=== PATIENT | female | born 1960 | race Caucasian/White ===

== ENCOUNTER 2021-04-26 14:45 | Outpatient (REF) | payer OTHER, SELFPAY ==
--- NOTE | ~2021-04-26 | XR_ITS ---
EXAMINATION: XR SHOULDER, RIGHT CLINICAL INFORMATION: Pain. Unable to be optimally positioned. COMPARISON: None TECHNIQUE: Three views of the right shoulder. FINDINGS: Suboptimal positioning. There is no acute fracture. No suspicious focal lesion. There is moderate lateral downsloping of the acromion. There is some hypertrophic change associated with the upper aspect of the AC joint. There is some proliferative change associated with the inferior aspect of the articular surface of the humeral head and the tip of the acromion. No definite abnormal soft tissue calcification. No suspicious abnormality in the visualized portions of the chest XR/XR shoulder RT min 2V IMPRESSION: No acute fracture or subluxation. There are some degenerative changes.
== END 2021-04-26 14:46 | disposition home or self-care (01) ==
LOC: HO.HMGCX 14:45
PROVIDERS: PCP Internal Medicine; Visit Provider Physician Assistant Medical
DX: Z13.89 Encounter for screening for other disorder (principal)
CPT/HCPCS: 73030

== ENCOUNTER 2021-06-17 11:38 | Outpatient (REF) | payer OTHER, SELFPAY ==
--- NOTE | ~2021-06-17 | XR_ITS ---
EXAMINATION: XR SHOULDER, RIGHT CLINICAL INFORMATION: Pain of the right shoulder COMPARISON: 04/26/2021 TECHNIQUE: AP external rotation, Grashey, scapular Y, and axillary views of the right shoulder. FINDINGS: Alignment is normal at the acromioclavicular and glenohumeral joints. The acromioclavicular joint is unremarkable. No hook-shaped acromion or acromiohumeral distance narrowing. There is lateral downsloping of the acromion. No calcium deposition within rotator cuff tendons. The glenohumeral joint space is preserved. No humeral fracture or subluxation. Small osteophytes are present at the inferior aspect of the glenohumeral joint. The humeral head is well positioned over the intact glenoid. The visualized right lung is normal. XR/XR shoulder RT min 2V IMPRESSION: * No evidence of calcific tendinopathy at the right shoulder. * Mild osteoarthritis of the glenohumeral joint. * No acute findings compared to prior exam from 04/26/2021.
[2021-06-17 11:55] LABS: MANUAL DIFF FLAG NO
[2021-06-17 12:09] LABS: Basophils Percent Auto 0.6 % (0-2); Eosinophils Absolute Auto 0.1 X10*3/uL (0.0-0.4); Eosinophils Percent Auto 1.1 % (0-4); Hematocrit 41.2 % (37.0-47.0); Hemoglobin 13.5 g/dl (12.0-16.0); Imm Gran Abs Auto 0.04 X10*3/uL (0.00-0.03); Imm Gran Pct Auto 0.6 % (0.0-0.4); Lymphocytes Absolute Auto 1.9 X10*3/uL (1.2-4.9); Lymphocytes Percent Auto 27.9 % (20-40); Mean Corpuscular HGB Conc 32.8 g/dl (31.0-35.0); Mean Corpuscular Hemoglobin 29.1 pg (27.0-33.0); Mean Corpuscular Volume 88.8 fL (80.0-98.0); Mean Platelet Volume 10.4 fL (9.4-12.3); Monocytes Absolute Auto 0.7 X10*3/uL (0.1-1.2); Monocytes Percent Auto 10.3 % (2-11); Neutrophils Absolute Auto 3.9 x10*3/uL (2.0-8.3); Neutrophils Percent Auto 59.5 % (45-73); Platelet Count 276 X10*3/uL (160-400); Red Blood Count 4.64 X10*6/uL (4.20-5.50); Red Cell Distribution Width 14.3 % (11.0-16.0); White Blood Count 6.6 X10*3/uL (4.8-10.8)
[2021-06-17 12:39] LABS: Alanine Aminotransferase 20 U/L (0-31); Albumin Level 4.2 g/dL (3.5-5.0); Alkaline Phosphatase 68 U/L (39-117); Anion Gap 12 (12-20); Aspartate Amino Transferase 18 U/L (5-31); Bilirubin Total 0.4 mg/dL (0.0-1.0); Blood Urea Nitrogen 19 mg/dL (9-16); Calcium 9.2 mg/dL (8.4-10.2); Carbon Dioxide 22 mmol/L (22-29); Chloride 110 mmol/L (96-108); Cholesterol 251 mg/dL; Estimated Glomerular Filt Rate > 60; Glucose Fasting 103 mg/dL (60-99); HDL Cholesterol 60 mg/dL; LDL Cholesterol Calculated 174 mg/dl; Potassium 4.2 mmol/L (3.3-5.1); Sodium 140 mmol/L (135-145); Total Protein 7.4 g/dL (6.5-8.0); Triglycerides 87 mg/dL
[2021-06-17 12:45] LABS: Thyroid Stimulating Hormone 0.88 uIU/mL (0.32-4.0)
[2021-06-20 14:01] LABS: Vitamin D 25-OH, D2 <4 ng/mL; Vitamin D 25-OH, D3 18 ng/mL; Vitamin D 25-OH, Total 18 ng/mL (30-100)
== END 2021-06-17 11:39 | disposition home or self-care (01) ==
LOC: HO.XRAY 11:38
PROVIDERS: PCP Internal Medicine; Visit Provider Internal Medicine
DX: E55.9 Vitamin D deficiency, unspecified (principal); E66.9 Obesity, unspecified; E78.5 Hyperlipidemia, unspecified; M25.511 Pain in right shoulder; Z68.33 Body mass index [BMI] 33.0-33.9, adult
CPT/HCPCS: 36415; 73030; 80053; 80061; 82306; 84443; 85025

== ENCOUNTER 2021-07-24 14:00 | Outpatient (RCR) | payer OTHER, SELFPAY ==
--- NOTE | 2021-07-15 15:36 | MHC.PT.EP ---
[facility] [place] Office [place] Office [place] Office [address] [phone] F: [phone] F: [phone] F: [phone] F: [phone] Physical Therapy Plan of Care Date of Evaluation: Date of Surgery: n/a Diagnosis: pain in R shoulder Assessment: Patient is a 61 year old female presenting to PT with complaints of pain in her R shoulder. Pt reports onset of pain began a about 3 months ago due to falling on her shoulder. She presents today with impairments in pain, shoulder ROM, shoulder strength, numbness and tingling, and posture. Pt's current occupation is none, with baseline physical activities including ADLs, sleep, reaching. Pt expresses shelter goal of getting back to normal, and is motivated to work towards this in PT. Clinical presentation today is somewhat unclear at this time secondary to pt with poor tolerance to the examination. She demonstrates pain consistent with shoulder pain however cervical component cannot be ruled out at this time and pt will benefit from skilled PT to address the following problems and impairments noted upon evaluation: pain, shoulder ROM, shoulder strength, numbness and tingling, and posture. These problems limit the patient with the following functional activities: ADLs, sleep, reaching. The prescribed treatment plan of care is medically necessary. Co-morbidities of depression were identified and taken into considerations of plan of care. Pt was educated on HEP, role of PT, prognosis, POC. Frequency and Duration: The patient will be seen 2 x week x 4 weeks Short Term Goals: Pt will demonstrate pain <5/10 at rest in 2 weeks for improved QOL. Pt will demonstrate improved shoulder ROM by 20 degrees in 2 weeks. Pt will demonstrate shoulder MMT of at least 3/5 in 2 weeks. Assisted Goals: Pt will demonstrate ability to complete ADLs with min to no pain in 4 weeks for improved independence at home. Pt will demonstrate ability to sleep through the night with min to no pain in 4 weeks for improved QOL. Treatment Plan: Modalities to reduce pain, spasms and effusion. Manual therapy to restore motion and function. Therapeutic exercise to improve strength and flexibility. Neuromuscular re-education for posture and balance. Therapeutic activities to return to functional activities of daily living. Electronically signed by: Juliane Rodriges, PT, DPT, ATC Please sign and return to therapist. Thank you for your referral.
--- NOTE | 2021-07-30 15:18 | MHC.PT.DC ---
[facility] [place] Office [place] Office [place] Office [address] [phone] F: [phone] F: [phone] F: [phone] F: [phone] Physical Therapy Discharge Report Diagnosis: pain in R shoulder Date of Surgery: n/a Date of Evaluation: 07/15/21 Date of Discharge: 07/30/21 Treatments to Date: 2 Cancellations to Date: 1 No Shows to Date: 3 Discharge Status: Visit Non-compliance Discharge Summary: Pt has failed to comply with [facility] attendance policy and no showed her final 2 appointments. Pt status currently unknown at this time. Electronically signed by: Juliane Rodriges, PT, DPT, ATC Please sign and return to therapist. Thank you for your referral.
== END 2021-07-30 15:19 | disposition home or self-care (01) ==
LOC: HO.PT 14:00
PROVIDERS: PCP Internal Medicine; Visit Provider Internal Medicine
DX: M25.511 Pain in right shoulder (principal)
CPT/HCPCS: 97110; 97161

== ENCOUNTER 2021-09-15 14:14 | Outpatient (REF) | payer OTHER, SELFPAY ==
--- NOTE | 2021-09-15 15:45 | MHC.AU.ANR ---
Adult Audiological Evaluation Date of Visit: 09/15/21 Hardscape Foreman Used: Tunisian- By Phone Reason for Appointment: Audiological evaluation due to concern for decreased hearing. Patient reports a longstanding history of hearing loss and middle-ear dysfunction. She notes that she has had two operations on her left ear and three on her right ear. She is not sure what the nature of these operations were, but notes that once she did have a PE tube in the right ear. She reports that these operations occurred in the late 1980s and early . Patient states that she was scheduled to have another operation on her right ear, but it was put on hold due to the COVID-19 pandemic. She notes that the hearing in her right ear seems to be getting worse, but feels she hears well from the left ear. Patient reports that she has never used hearing aids because she doesn't like them. Does patient feel they have a hearing loss?: Yes If Yes, Which Ear?: Right Ear When Was Hearing Difficulty First Noticed?: 30+ years ago Has hearing been tested previously?: Yes Previous Hearing Test Results: Reports having audiological evaluations in the past, but results are not available for review today. Ear History: Recent Ear Pain: Both Ears Family History of Hearing Loss?: No: Mother and father Previous Ear Surgery: Both Ears Medical History: Medical History: Migraines Medical History (Other): Asthmas, kidney problem Allergies: Flu vaccines, penicillin Medication List: acetaminophen ER, albuterol sulfate, cholecalciferol (vitamin D3), clonazepam, fluoxetine, fluticasone propionate, meloxicam, prazosin, rosuvastatin, sumatriptan succinate, tiotropium bromide, topiramate, trazodone Otoscopy: Right Ear: Unremarkable Left Ear: Unremarkable Tympanometry: Tympanometry performed due to: Conductive component found in audiometric results Right Ear: Normal Middle Ear System (Type A) Left Ear: Patient Did Not Tolerate Tympanometry Hearing Evaluation: Transducer(s) Used: Insert Earphones Bone Conduction Method: Conventional Audiometry Stimuli Used: Pure Tones Right Ear: Description of Hearing: Profound hearing loss at 250 Hz rising to a severe to moderately-severe mixed hearing loss 500-6000 Hz and sloping to a profound hearing loss at 8000 Hz. . Left Ear: Description of Hearing: Moderate sensorineural hearing loss 250-1000 Hz, rising to a mild sensorineural hearing loss at 2000 Hz, and sloping to a moderate to severe sensorineural hearing loss from 5069-4434 Hz. Speech Recognition Threshold (SRT): Method Used: Recorded Lists Stimuli Used: Tunisian Trisyllable Words Right Ear: 95 dBHL Left Ear: 55 dBHL Word Discrimination: Method: Recorded Lists Word Lists Used: Lista Bisil?bica (Tunisian) Right Ear: 84% at 100 dBHL Left Ear: 96% at 90 dBHL Recommendations: Audiological re-evaluation in one year. Trial with amplification is recommended. Referral to Ear, Nose, and Throat is recommended. Discussed results with patient. Advised that an operation would not repair the sensorineural portion of her hearing loss, and therefore hearing aids are highly recommended. She was very resistant to talk of hearing aids and did not want to continue the conversation further. Patient stated she wanted to go back to ENT to pursue that operation that was planned pre-pandemic. Diagnosis: Primary Diagnosis: H90.A31 Mixed HL, Unilateral Right Ear, W/Restricted Contralateral Hearing Secondary Diagnosis: H90.A22 SNHL, Unilateral, Left Ear, W/Restricted Contralateral Hearing Services Performed: Services Performed: Comprehensive Audiological Evaluation (CPT 18066) Tympanometry (CPT 65536) Signature: Provider: Naila Lassiter, CCC-A
== END 2021-09-15 14:15 | disposition home or self-care (01) ==
LOC: HO.SH 14:14
PROVIDERS: Visit Provider Nurse Practitioner Acute Care
DX: Z01.118 Encounter for examination of ears and hearing with other abnormal findings (principal); H90.3 Sensorineural hearing loss, bilateral
CPT/HCPCS: 92557; 92567

== ENCOUNTER 2021-10-03 13:34 | Outpatient (REF) | payer OTHER, SELFPAY ==
--- NOTE | ~2021-10-03 | CT_ITS ---
EXAMINATION: CT SHOULDER WITHOUT CONTRAST, RIGHT CLINICAL INFORMATION: Right shoulder pain. COMPARISON: 06/17/2021 TECHNIQUE: Multidetector volumetric imaging was obtained through the right shoulder without contrast. Multiplanar reformatted images in coronal and sagittal orientations were submitted. This CT examination was performed using dose optimization techniques as appropriate, variously including the following: *Automated exposure control *Adjustment of mA and/or kV according to patient size (this includes techniques or standardized protocols for targeted exams where dose is matched to indication/reason for exam; i.e. extremities or head) *Use of iterative reconstruction technique DLP: 329 mGy-cm FINDINGS: No acute fracture or malalignment. Bone mineralization appears normal. Humeral head appears appropriately situated at the glenoid. There is uppc-[id number] glenohumeral osteoarthritis with nonuniform joint space narrowing, marginal osteophytes, and articular sclerosis. Clxq-cg-ahynahjx osteoarthritis is also present at the acromioclavicular joint. The undersurface of the acromion is flat with lateral downsloping and anterolateral subacromial spurring. Normal subacromial interval. Coracohumeral distance measures 7 mm. No appreciable glenohumeral effusion. Possible trace subacromial-subdeltoid bursitis, though sensitivity and specificity are limited. No clear rotator cuff tear, though sensitivity is limited without intra-articular contrast. There is mild subscapularis muscle atrophy and fatty replacement which does raise the possibility of a rotator cuff tear. Right-sided chest wall is unremarkable. Imaged portion of the right lung is clear. Mediastinum is unremarkable. CT/CT shoulder RT wo con IMPRESSION: 1. Zbyk-pt-hokydrmb glenohumeral and acromioclavicular osteoarthritis of the right shoulder. 2. Relative atrophy and fatty replacement of the right subscapularis muscle, raising the possibility of a associated tendon tear. Sensitivity of CT for rotator cuff tears is limited without intra-articular contrast. Consider shoulder MRI if clinically warranted. 3. Lateral downsloping of the acromion with associated subacromial spurring. Possible subacromial-subdeltoid bursitis.
== END 2021-10-03 13:35 | disposition home or self-care (01) ==
LOC: HO.CT 13:34
PROVIDERS: Visit Provider Nurse Practitioner Acute Care
DX: M25.511 Pain in right shoulder (principal)
CPT/HCPCS: 73200

== ENCOUNTER 2021-11-05 10:08 | Outpatient (REF) | payer OTHER, SELFPAY ==
[2021-11-05 10:27] LABS: MANUAL DIFF FLAG NO
[2021-11-05 11:15] LABS: Basophils Percent Auto 0.3 % (0-2); Eosinophils Absolute Auto 0.1 X10*3/uL (0.0-0.4); Eosinophils Percent Auto 1.5 % (0-4); Hematocrit 39.5 % (37.0-47.0); Hemoglobin 12.9 g/dl (12.0-16.0); Imm Gran Abs Auto 0.04 X10*3/uL (0.00-0.03); Imm Gran Pct Auto 0.6 % (0.0-0.4); Lymphocytes Percent Auto 29.8 % (20-40); Mean Corpuscular HGB Conc 32.7 g/dl (31.0-35.0); Mean Corpuscular Hemoglobin 29.1 pg (27.0-33.0); Mean Corpuscular Volume 89.2 fL (80.0-98.0); Mean Platelet Volume 9.8 fL (9.4-12.3); Monocytes Absolute Auto 0.8 X10*3/uL (0.1-1.2); Monocytes Percent Auto 11.4 % (2-11); Neutrophils Absolute Auto 3.7 x10*3/uL (2.0-8.3); Neutrophils Percent Auto 56.4 % (45-73); Platelet Count 309 X10*3/uL (160-400); Red Blood Count 4.43 X10*6/uL (4.20-5.50); Red Cell Distribution Width 13.6 % (11.0-16.0); White Blood Count 6.6 X10*3/uL (4.8-10.8)
[2021-11-05 12:47] LABS: Alanine Aminotransferase 25 U/L (0-31); Albumin Level 4.2 g/dL (3.5-5.0); Alkaline Phosphatase 65 U/L (39-117); Anion Gap 12 (12-20); Aspartate Amino Transferase 19 U/L (5-31); Bilirubin Total 0.6 mg/dL (0.0-1.0); Blood Urea Nitrogen 16 mg/dL (9-16); Calcium 9.5 mg/dL (8.4-10.2); Carbon Dioxide 26 mmol/L (22-29); Chloride 105 mmol/L (96-108); Cholesterol 178 mg/dL; Estimated Glomerular Filt Rate > 60; Glucose Fasting 100 mg/dL (60-99); HDL Cholesterol 53 mg/dL; LDL Cholesterol Calculated 109 mg/dl; Potassium 4.4 mmol/L (3.3-5.1); Sodium 139 mmol/L (135-145); Total Protein 7.3 g/dL (6.5-8.0); Triglycerides 84 mg/dL
== END 2021-11-05 10:09 | disposition home or self-care (01) ==
LOC: HO.LAB 10:08
PROVIDERS: PCP Internal Medicine; Visit Provider Nurse Practitioner Acute Care
DX: E78.5 Hyperlipidemia, unspecified (principal)
CPT/HCPCS: 36415; 80053; 80061; 85025

== ENCOUNTER → 2021-11-10 09:52 | Outpatient (BNVA) | payer OTHER, SELFPAY | PROVIDERS: PCP Internal Medicine; Visit Provider Orthopaedic Surgery | DX: M24.811 Other specific joint derangements of right shoulder, not elsewhere classified (principal) | CPT/HCPCS: 20610; 99202; J1100 ==

== ENCOUNTER → 2021-12-19 14:59 | Outpatient (BNVA) | payer OTHER, SELFPAY | PROVIDERS: PCP Nurse Practitioner Acute Care; Referring Provider Internal Medicine; Visit Provider Nurse Practitioner Family | DX: K21.9 Gastro-esophageal reflux disease without esophagitis (principal) ==

== ENCOUNTER 2021-12-19 15:35 | Outpatient (REF) | payer OTHER, SELFPAY ==
[2021-12-23 10:42] LABS: H Pylori Breath Test Positive (Negative)
== END 2021-12-19 15:36 | disposition home or self-care (01) ==
LOC: HO.LNP 15:35
PROVIDERS: Visit Provider Nurse Practitioner Family
DX: K21.9 Gastro-esophageal reflux disease without esophagitis (principal); R14.0 Abdominal distension (gaseous)
CPT/HCPCS: 83013

== ENCOUNTER 2022-02-02 13:00 | Outpatient (RCR) | payer OTHER, SELFPAY | END 2022-03-12 11:41 | disposition home or self-care (01) | LOC: HO.PT 13:00 | PROVIDERS: PCP Internal Medicine; Visit Provider Nurse Practitioner Acute Care | DX: M19.019 Primary osteoarthritis, unspecified shoulder (principal) | CPT/HCPCS: 97014; 97110; 97140; 97162 ==

== ENCOUNTER 2022-02-06 08:38 | Outpatient (REF) | payer OTHER, SELFPAY ==
--- NOTE | ~2022-02-06 | MM_ITS ---
EXAMINATION: BONE DENSITOMETRY CLINICAL INDICATION: Asymptomatic menopausal state. COMPARISON: This is the patient's baseline examination. TECHNIQUE: Using a TrustGo DXA System (software version: 13.1) manufactured by [employer], dual-energy x-ray absorptiometry was performed of the lumbar spine and left hip. The images are of good technical quality. Summary results are attached. FINDINGS: AP SPINE L1-L3 (excluding L4): The data of L1-L4 has been changed to exclude the L4 vertebral body, because degenerative changes at this level may cause overestimation of lumbar spine density. BMD 1.238 g/cm2, Z-score 0.7, T-score 0.6, normal. LEFT FEMUR, NECK: BMD 0.898 g/cm2, Z-score -0.4, T-score -1.0, normal. LEFT FEMUR, TOTAL: BMD 0.974 g/cm2, Z-score -0.1, T-score -0.3, normal. IDENTIFIED RISK FACTORS: Menopause, family history (parental hip fracture), history of fracture (adult), height loss, recurrent falls. HISTORY OF FRACTURE: Shoulder, wrist. MEDICATIONS: None listed. MM/XR DEXA axial skeleton IMPRESSION: 1. DIAGNOSIS: Normal bone density based on the lowest T-score value of -1.0 in the femoral neck applying World Health Organization criteria. 2. 10-YEAR FRACTURE RISK PREDICTION, FRAX: According to the guidelines, FRAX calculation should only be performed on patients in the osteopenia bone density category. Therefore, FRAX was not performed on this patient. 3. Treatment Recommendations: NOF guidelines recommend consideration for treatment in postmenopausal women and men age 50 and older presenting with the following: -A hip or vertebral (clinical or morphometric) fracture. -T-score less than or equal to -2.5 at the femoral neck or spine after appropriate evaluation to exclude secondary causes. -Low bone mass at the hip or spine and a 10-year fracture probability by FRAX of greater than or equal to 3% for hip fracture or greater than or equal to 20% for major osteoporotic fracture based on the [place] adapted WHO algorithm. 4. Other Recommendations: All treatment decisions require clinical judgment and consideration of individual patient factors, including patient preferences, comorbidities, previous drug use, risk factors not captured in the FRAX model (e.g. frailty, falls, vitamin D deficiency, increased bone turnover, interval significant decline in bone density) and possible under or overestimation of fracture risk by FRAX. FUTURE SCAN RECOMMENDATION: People with diagnosed cases of osteoporosis or at high risk for fracture should have regular bone mineral density tests. For patients eligible for Medicare, routine testing is allowed once every 2 years. The testing frequency can be increased to one year for patients who have rapidly progressing disease, those who are receiving or discontinuing medical therapy to restore bone mass, or have additional risk factors.
== END 2022-02-06 08:39 | disposition home or self-care (01) ==
LOC: HO.MAMMO 08:38
PROVIDERS: Visit Provider Internal Medicine
DX: Z13.820 Encounter for screening for osteoporosis (principal); Z78.0 Asymptomatic menopausal state
CPT/HCPCS: 77080

== ENCOUNTER 2022-02-12 15:25 | Outpatient (REF) | payer OTHER, SELFPAY ==
[2022-02-12 15:41] LABS: MANUAL DIFF FLAG NO
[2022-02-12 16:11] LABS: Basophils Percent Auto 0.5 % (0-2); Eosinophils Absolute Auto 0.1 X10*3/uL (0.0-0.4); Eosinophils Percent Auto 1.4 % (0-4); Hemoglobin 12.5 g/dl (12.0-16.0); Imm Gran Abs Auto 0.03 X10*3/uL (0.00-0.03); Imm Gran Pct Auto 0.5 % (0.0-0.4); Lymphocytes Absolute Auto 2.2 X10*3/uL (1.2-4.9); Mean Corpuscular HGB Conc 33.8 g/dl (31.0-35.0); Mean Corpuscular Hemoglobin 29.9 pg (27.0-33.0); Mean Corpuscular Volume 88.5 fL (80.0-98.0); Mean Platelet Volume 9.7 fL (9.4-12.3); Monocytes Absolute Auto 0.7 X10*3/uL (0.1-1.2); Monocytes Percent Auto 11.3 % (2-11); Neutrophils Absolute Auto 3.5 x10*3/uL (2.0-8.3); Neutrophils Percent Auto 53.3 % (45-73); Platelet Count 290 X10*3/uL (160-400); Red Blood Count 4.18 X10*6/uL (4.20-5.50); Red Cell Distribution Width 13.9 % (11.0-16.0); White Blood Count 6.5 X10*3/uL (4.8-10.8)
[2022-02-12 16:31] LABS: Alanine Aminotransferase 14 U/L (0-31); Albumin Level 4.2 g/dL (3.5-5.0); Alkaline Phosphatase 57 U/L (39-117); Anion Gap 10 (12-20); Aspartate Amino Transferase 15 U/L (5-31); Bilirubin Total 0.4 mg/dL (0.0-1.0); Blood Urea Nitrogen 16 mg/dL (9-16); Calcium 8.7 mg/dL (8.4-10.2); Carbon Dioxide 24 mmol/L (22-29); Chloride 110 mmol/L (96-108); Cholesterol 247 mg/dL; Estimated Glomerular Filt Rate > 60; Glucose Fasting 102 mg/dL (60-99); HDL Cholesterol 48 mg/dL; LDL Cholesterol Calculated 169 mg/dl; Potassium 4.1 mmol/L (3.3-5.1); Sodium 140 mmol/L (135-145); Triglycerides 150 mg/dL
== END 2022-02-12 15:26 | disposition home or self-care (01) ==
LOC: HO.LAB 15:25
PROVIDERS: PCP Internal Medicine; Visit Provider Nurse Practitioner Family
DX: Z00.00 Encounter for general adult medical examination without abnormal findings (principal); M24.811 Other specific joint derangements of right shoulder, not elsewhere classified; N63.20 Unspecified lump in the left breast, unspecified quadrant; E78.5 Hyperlipidemia, unspecified; E55.9 Vitamin D deficiency, unspecified
CPT/HCPCS: 36415; 80053; 80061; 82306; 85025; 99212

== ENCOUNTER 2022-02-16 10:40 | Outpatient (REF) | payer OTHER, SELFPAY ==
[2022-02-16 12:21] LABS: Lipase 11 U/L (8-78)
[2022-02-16 12:59] LABS: Folate 10.3 ng/mL (> or = 4.0); Vitamin B12 268 pg/mL (200-900)
[2022-02-19 21:22] LABS: Transglutaminase Ab IgG <1.0 U/mL; Transglutaminase IgA <1.0 U/mL
[2022-02-22 16:06] LABS: Vitamin D 25-OH, D2 <4 ng/mL; Vitamin D 25-OH, D3 24 ng/mL; Vitamin D 25-OH, Total 24 ng/mL (30-100)
== END 2022-02-16 10:41 | disposition home or self-care (01) ==
LOC: HO.LAB 10:40
PROVIDERS: PCP Internal Medicine; Visit Provider Nurse Practitioner Family
DX: R10.9 Unspecified abdominal pain (principal); E55.9 Vitamin D deficiency, unspecified
CPT/HCPCS: 36415; 82306; 82607; 82746; 83690; 86364

== ENCOUNTER → 2022-02-17 15:41 | Outpatient (BNVA) | payer OTHER, SELFPAY | PROVIDERS: PCP Internal Medicine; Visit Provider Nurse Practitioner Family | DX: K58.2 Mixed irritable bowel syndrome (principal); K21.9 Gastro-esophageal reflux disease without esophagitis; Z79.899 Other long term (current) drug therapy | CPT/HCPCS: 99212 ==

== ENCOUNTER 2022-03-04 09:55 | Outpatient (REF) | payer OTHER, SELFPAY ==
[2022-03-05 14:10] LABS: H Pylori Breath Test Positive (Negative)
== END 2022-03-04 09:56 | disposition home or self-care (01) ==
LOC: HO.LNP 09:55
PROVIDERS: PCP Internal Medicine; Visit Provider Nurse Practitioner Family
DX: Z11.2 Encounter for screening for other bacterial diseases (principal)
CPT/HCPCS: 83013; 99211

== ENCOUNTER 2022-03-13 12:52 | Outpatient (REF) | payer OTHER, SELFPAY ==
--- NOTE | ~2022-03-13 | MM_ITS ---
EXAMINATION: MM DIAGNOSTIC DIGITAL BREAST TOMOSYNTHESIS, BILATERAL US TARGETED BREAST, LEFT CLINICAL INFORMATION: Left breast lump. Screening right study. The lifetime risk of breast cancer based on the Tyrer-Cuzick Model is 14.5%. COMPARISON: Mammography: 02/08/2020 and studies dating back to 12/04/2015. TECHNIQUE: Digital breast tomosynthesis is performed in both the craniocaudal and mediolateral oblique views along with computer-aided detection (CAD). Synthesized 2D images are generated from the tomosynthesis. Targeted left breast ultrasound. FINDINGS: There are scattered areas of fibroglandular density (ACR BI-RADS breast composition Category b). There are no significant masses, abnormal calcifications, or other abnormalities. Targeted left breast ultrasound did not demonstrate any abnormal cystic or solid mass. No region of abnormal distal sound shadowing appreciated. No edematous change within adjacent tissue is seen. Results are discussed with the patient at time of visit. MM/MM tomosynthesis diagnostic BI IMPRESSION: No specific mammographic or ultrasound evidence to suggest malignancy. ASSESSMENT: BI-RADS 1: Negative. RECOMMENDATION: Routine annual mammography screening due in 12 months. Clinical followup. This patient's information was entered into a reminder system with a target due date for their next mammogram.
--- NOTE | ~2022-03-13 | US_ITS ---
EXAMINATION: MM DIAGNOSTIC DIGITAL BREAST TOMOSYNTHESIS, BILATERAL US TARGETED BREAST, LEFT CLINICAL INFORMATION: Left breast lump. Screening right study. The lifetime risk of breast cancer based on the Tyrer-Cuzick Model is 14.5%. COMPARISON: Mammography: 02/08/2020 and studies dating back to 12/04/2015. TECHNIQUE: Digital breast tomosynthesis is performed in both the craniocaudal and mediolateral oblique views along with computer-aided detection (CAD). Synthesized 2D images are generated from the tomosynthesis. Targeted left breast ultrasound. FINDINGS: There are scattered areas of fibroglandular density (ACR BI-RADS breast composition Category b). There are no significant masses, abnormal calcifications, or other abnormalities. Targeted left breast ultrasound did not demonstrate any abnormal cystic or solid mass. No region of abnormal distal sound shadowing appreciated. No edematous change within the adjacent soft tissue is seen. Results are discussed with the patient at time of visit. US/US breast LT limited IMPRESSION: No specific mammographic or ultrasound evidence to suggest malignancy. ASSESSMENT: BI-RADS 1: Negative. RECOMMENDATION: Routine annual mammography screening due in 12 months. Clinical followup. This patient's information was entered into a reminder system with a target due date for their next mammogram.
== END 2022-03-13 12:53 | disposition home or self-care (01) ==
LOC: HO.MAMMO 12:52
PROVIDERS: PCP Internal Medicine; Visit Provider Internal Medicine
DX: N63.21 Unspecified lump in the left breast, upper outer quadrant (principal)
CPT/HCPCS: 76642; 77062; 77066

== ENCOUNTER → 2022-04-06 13:26 | Outpatient (BNVA) | payer OTHER, SELFPAY | PROVIDERS: PCP Internal Medicine; Visit Provider Orthopaedic Surgery | DX: M24.811 Other specific joint derangements of right shoulder, not elsewhere classified (principal); M25.512 Pain in left shoulder | CPT/HCPCS: 20610; 99212; J1100 ==

== ENCOUNTER → 2022-04-21 13:31 | Outpatient (BNVA) | payer OTHER, SELFPAY | PROVIDERS: PCP Internal Medicine; Referring Provider Internal Medicine; Visit Provider Nurse Practitioner Family | DX: K21.9 Gastro-esophageal reflux disease without esophagitis (principal); A04.8 Other specified bacterial intestinal infections; R14.0 Abdominal distension (gaseous) | CPT/HCPCS: 99212 ==

== ENCOUNTER → 2022-05-20 14:48 | Outpatient (BNVA) | payer OTHER, SELFPAY | PROVIDERS: PCP Internal Medicine; Referring Provider Internal Medicine; Visit Provider Nurse Practitioner Family | DX: A04.8 Other specified bacterial intestinal infections (principal); R10.13 Epigastric pain; R14.0 Abdominal distension (gaseous); K59.01 Slow transit constipation | CPT/HCPCS: 99212 ==

== ENCOUNTER → 2022-06-23 09:49 | Outpatient (BNVA) | payer OTHER, SELFPAY | PROVIDERS: PCP Internal Medicine; Visit Provider Nurse Practitioner Family | DX: R10.13 Epigastric pain (principal); R10.10 Upper abdominal pain, unspecified; K59.04 Chronic idiopathic constipation; R14.0 Abdominal distension (gaseous); R11.0 Nausea | CPT/HCPCS: 99212 ==

== ENCOUNTER 2022-07-06 10:03 | Outpatient (REF) | payer OTHER, SELFPAY | END 2022-07-06 10:04 | disposition home or self-care (01) | LOC: HO.LNP 10:03 | PROVIDERS: Visit Provider Nurse Practitioner Family | DX: M24.811 Other specific joint derangements of right shoulder, not elsewhere classified (principal); M25.512 Pain in left shoulder | CPT/HCPCS: 20610; 99212; J1100 ==

== ENCOUNTER 2022-07-10 09:29 | Outpatient (REF) | payer OTHER, SELFPAY ==
--- NOTE | ~2022-07-10 | CT_ITS ---
EXAMINATION: CT ABDOMEN AND PELVIS WITHOUT CONTRAST CLINICAL INFORMATION: Epigastric pain. COMPARISON: None. TECHNIQUE: Multidetector volumetric imaging was performed from the superior aspect of the liver through the pubic symphysis. Sagittal and coronal reformatted images were obtained on the technologist's workstation. This CT examination was performed using dose optimization techniques as appropriate, variously including the following: *Automated exposure control *Adjustment of mA and/or kV according to patient size (this includes techniques or standardized protocols for targeted exams where dose is matched to indication/reason for exam; i.e. extremities or head) *Use of iterative reconstruction technique DLP: 796 mGy-cm. FINDINGS: LUNG BASES: The lung bases are clear. The heart size is normal. LIVER, GALLBLADDER, AND BILIARY TREE: The liver is normal in size, shape, and attenuation. No focal hepatic lesion or biliary ductal dilatation is present. The gallbladder is unremarkable with no evidence of radiopaque gallstones, gallbladder wall thickening, or obvious pericholecystic inflammatory changes. PANCREAS: The head of the pancreas appears fatty infiltrated. The body and the tail of pancreas is normal in density and size. SPLEEN: Unremarkable. ADRENAL GLANDS: Unremarkable. KIDNEYS AND URETERS: The kidneys are normal in size, shape, and attenuation. No hydronephrosis, hydroureter, or calculi seen. No perinephric stranding. There is a hypodense lesion in the posterior cortex midpole left kidney, probable cyst measuring 5 Hounsfield units. BLADDER: Unremarkable. GASTROINTESTINAL TRACT: The stomach is unremarkable. The opacified small bowel loops are normal caliber. The stomach is opacified with oral contrast and scattered stool without distention. Appendix is small caliber and not optimally visualized the cecum lies in midline abdomen. ABDOMINAL WALL: There is a small lumbar canal hernia containing fat.. LYMPH NODES: No abnormal-sized retroperitoneal, pelvic or inguinal lymph nodes seen. VASCULAR: Unremarkable. PELVIC VISCERA: The uterus is anteverted and appears unremarkable. No free fluid or adnexal mass seen. No abnormal pelvic lymph nodes. OSSEOUS STRUCTURES: No aggressive lytic or sclerotic process seen. There is mild spondylosis. CT/CT abdomen pelvis wo IV con IMPRESSION: 1. No acute intra-abdominal process seen. 2. Mild constipation. 3. Focal fatty infiltration head of the pancreas. 4. Probable cyst midpole left kidney Fleischner guidelines were followed.
[2022-07-10] MEDS: Barium Sulfate Oral (Vanilla) 450 ML ORAL.SUSP 900 ML PO (11:39)
== END 2022-07-10 09:30 | disposition home or self-care (01) ==
LOC: HO.CT 09:29
PROVIDERS: PCP Internal Medicine; Visit Provider Nurse Practitioner Family
DX: R10.13 Epigastric pain (principal); R10.9 Unspecified abdominal pain; R14.0 Abdominal distension (gaseous)
CPT/HCPCS: 74176

== ENCOUNTER → 2022-08-04 10:17 | Outpatient (BNVA) | payer OTHER, SELFPAY | PROVIDERS: PCP Internal Medicine; Visit Provider Nurse Practitioner Family | DX: R10.9 Unspecified abdominal pain (principal); R14.0 Abdominal distension (gaseous); R11.2 Nausea with vomiting, unspecified; K21.9 Gastro-esophageal reflux disease without esophagitis; K58.2 Mixed irritable bowel syndrome; E11.9 Type 2 diabetes mellitus without complications; Z12.11 Encounter for screening for malignant neoplasm of colon | CPT/HCPCS: 99212 ==

== ENCOUNTER 2022-08-27 09:34 | Outpatient (REF) | payer OTHER, SELFPAY ==
[2022-08-27 10:43] LABS: Estimated Average Glucose 120 mg/dL; Hemoglobin A1c % 5.8 %
[2022-08-27 11:25] LABS: Alanine Aminotransferase 19 U/L (0-31); Alkaline Phosphatase 60 U/L (39-117); Aspartate Amino Transferase 17 U/L (5-31); Bilirubin Direct < 0.2 mg/dL (0.0-0.5); Bilirubin Total 0.4 mg/dL (0.0-1.0); Lipase 11 U/L (8-78); Total Protein 6.8 g/dL (6.5-8.0)
[2022-09-05 17:28] LABS: Pancreatic Elastase-1 31 mcg/g
== END 2022-08-27 09:35 | disposition home or self-care (01) ==
LOC: HO.LAB 09:34
PROVIDERS: PCP Internal Medicine; Visit Provider Nurse Practitioner Family
DX: E11.9 Type 2 diabetes mellitus without complications (principal); R10.9 Unspecified abdominal pain; K21.9 Gastro-esophageal reflux disease without esophagitis
CPT/HCPCS: 36415; 80076; 82656; 83036; 83690; 87338

== ENCOUNTER → 2022-09-04 10:10 | Outpatient (BNVA) | payer OTHER, SELFPAY | PROVIDERS: PCP Internal Medicine; Visit Provider Nurse Practitioner Family | DX: K21.9 Gastro-esophageal reflux disease without esophagitis (principal); A04.8 Other specified bacterial intestinal infections; K58.1 Irritable bowel syndrome with constipation; R14.0 Abdominal distension (gaseous) | CPT/HCPCS: 99212 ==

== ENCOUNTER → 2022-10-09 11:26 | Outpatient (BNVA) | payer OTHER, SELFPAY | PROVIDERS: PCP Internal Medicine; Visit Provider Orthopaedic Surgery | DX: M25.511 Pain in right shoulder (principal); M25.512 Pain in left shoulder; M24.811 Other specific joint derangements of right shoulder, not elsewhere classified | CPT/HCPCS: 20610; 99212; J1100 ==

== ENCOUNTER → 2022-11-04 08:13 | Outpatient (REF) | payer OTHER, SELFPAY ==
--- NOTE | ~2022-11-04 | NM_ITS ---
EXAMINATION: RADIONUCLIDE SOLID FOOD GASTRIC EMPTYING 4-HOUR STUDY CLINICAL INFORMATION: Gastroesophageal reflux disease without esophagitis. COMPARISON: No previous gastric emptying study is available for comparison. TECHNIQUE: A standard meal consisting of 4 oz of Egg Beaters brand tagged with 1.0 mCi Tc-99m Sulfur Colloid, 8 oz water and 2 slices of toast with jelly was administered orally to the patient. Images were obtained using a dual head gamma camera in the anterior and posterior projections over of the stomach immediately post ingestion and at hourly intervals up to 3 hours post ingestion. Images were not obtained at 4 hours due to the minimal retention at 3 hours. The anterior and posterior counts at each time interval were averaged using the geometric mean and expressed as percentage of the immediate post ingestion counts. FINDINGS: There is good visualization of activity in the stomach immediately post ingestion. As the study progresses, there is good clearance of activity from the stomach and visualization of progressively increasing small bowel activity. By the end of the study, there is almost no retention noted in the stomach. Retention in the stomach at each time interval was: 1 hour 59% (normal 37%-90%) 2 hours 13% (normal 30%-60%) 3 hours 1% 4 hours (Not Obtained) (normal 0%-10%) NM/NM gastric emptying study IMPRESSION: Normal solid food gastric emptying study.
[2022-11-04 08:51] LABS: Alanine Aminotransferase 18 U/L (0-31); Alkaline Phosphatase 62 U/L (39-117); Anion Gap 14 (12-20); Aspartate Amino Transferase 15 U/L (5-31); Bilirubin Total 0.6 mg/dL (0.0-1.0); Blood Urea Nitrogen 18 mg/dL (9-16); Calcium 9.1 mg/dL (8.4-10.2); Carbon Dioxide 27 mmol/L (22-29); Chloride 107 mmol/L (96-108); Cholesterol 259 mg/dL; Estimated Glomerular Filt Rate > 60; Glucose Fasting 104 mg/dL (60-99); HDL Cholesterol 55 mg/dL; LDL Cholesterol Calculated 185 mg/dl; Potassium 4.6 mmol/L (3.3-5.1); Sodium 143 mmol/L (135-145); Total Protein 6.7 g/dL (6.5-8.0); Triglycerides 95 mg/dL
== END ==
LOC: HO.NUCMED 08:13
PROVIDERS: PCP Internal Medicine; Visit Provider Nurse Practitioner Family
DX: K21.9 Gastro-esophageal reflux disease without esophagitis (principal); E78.5 Hyperlipidemia, unspecified
CPT/HCPCS: 36415; 78264; 80053; 80061; A9541

== ENCOUNTER → 2022-11-13 14:13 | Outpatient (BNVA) | payer OTHER, SELFPAY | PROVIDERS: PCP Internal Medicine; Visit Provider Nurse Practitioner Family | DX: K21.9 Gastro-esophageal reflux disease without esophagitis (principal); K58.9 Irritable bowel syndrome, unspecified; R14.0 Abdominal distension (gaseous) | CPT/HCPCS: 99212 ==

== ENCOUNTER → 2022-12-21 16:22 | Outpatient (BNVA) | payer OTHER, SELFPAY | PROVIDERS: PCP Internal Medicine; Visit Provider Nurse Practitioner Family | DX: Z12.11 Encounter for screening for malignant neoplasm of colon (principal); K21.9 Gastro-esophageal reflux disease without esophagitis; K58.9 Irritable bowel syndrome, unspecified; R14.0 Abdominal distension (gaseous); A04.8 Other specified bacterial intestinal infections | CPT/HCPCS: 99212 ==

== ENCOUNTER → 2022-12-25 14:21 | Outpatient (BNVA) | payer OTHER, SELFPAY | PROVIDERS: PCP Internal Medicine; Visit Provider Nurse Practitioner Family | DX: M24.811 Other specific joint derangements of right shoulder, not elsewhere classified (principal); M25.511 Pain in right shoulder; M19.011 Primary osteoarthritis, right shoulder; M75.91 Shoulder lesion, unspecified, right shoulder | CPT/HCPCS: 99202 ==

== ENCOUNTER 2023-01-19 06:08 | Outpatient (REF) | payer OTHER, SELFPAY ==
--- NOTE | ~2023-01-19 | FL_ITS ---
EXAMINATION: XR FLUOROSCOPY WITH IMAGES CLINICAL INFORMATION: Other specific joint derangements of right shoulder, not elsewhere classified. COMPARISON: None available. TECHNIQUE: Fluoroscopy Supervised By: Dr. Frankie Vasques. Fluoroscopy Time: 0.4 minutes. Cumulative Dose: 10.2 mGy. DAP: 0.713 Gycm2. Images: 1. FINDINGS: Image demonstrates contrast injection of the soft tissues of the right shoulder FL/FL guidance in treatment room IMPRESSION: Fluoroscopy guidance for pain management procedure
== END 2023-01-19 06:09 | disposition home or self-care (01) ==
LOC: CF 06:08
PROVIDERS: Visit Provider Anesthesiology
DX: M19.011 Primary osteoarthritis, right shoulder (principal); M24.811 Other specific joint derangements of right shoulder, not elsewhere classified; M25.511 Pain in right shoulder
CPT/HCPCS: 64418

== ENCOUNTER → 2023-01-26 13:46 | Outpatient (BNVA) | payer OTHER, SELFPAY | PROVIDERS: PCP Internal Medicine; Visit Provider Nurse Practitioner Family | DX: M24.811 Other specific joint derangements of right shoulder, not elsewhere classified (principal); M25.511 Pain in right shoulder; M19.019 Primary osteoarthritis, unspecified shoulder | CPT/HCPCS: 99212 ==

== ENCOUNTER 2023-02-16 07:13 | Outpatient (REF) | payer OTHER, SELFPAY ==
--- NOTE | ~2023-02-16 | FL_ITS ---
EXAMINATION: XR FLUOROSCOPY WITH IMAGES CLINICAL INFORMATION: Derangement of right shoulder COMPARISON: None available. TECHNIQUE: Fluoroscopy Supervised By: . Fluoroscopy Time: 0.4 minutes. Cumulative Dose: 7.44 mGy. DAP: 0.129 Gycm2. Images: 2. FINDINGS: 2 images of the right shoulder are submitted and demonstrate needles in place There are some proliferative changes FL/FL guidance in treatment room IMPRESSION: Imaging assistance provided during a fluoroscopic procedure
== END 2023-02-16 07:14 | disposition home or self-care (01) ==
LOC: CF 07:13
PROVIDERS: PCP Internal Medicine; Visit Provider Anesthesiology
DX: M24.811 Other specific joint derangements of right shoulder, not elsewhere classified (principal); M19.011 Primary osteoarthritis, right shoulder
CPT/HCPCS: 64417; 64418

== ENCOUNTER 2023-02-16 13:16 | Outpatient (AMB) | payer OTHER, SELFPAY ==
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
[2023-02-16 13:25] VITALS: BP 122/62; PULSE 67; RESP 16; O2SAT 97; BMI 35.3
[2023-02-16 14:48] VITALS: BP 116/80; PULSE 90; RESP 16; O2SAT 96; BMI 35.3
== END 2023-02-16 14:31 | disposition home or self-care (01) ==
LOC: HO.PMCPRC 13:16
PROVIDERS: PCP Internal Medicine; Visit Provider Anesthesiology
DX: M24.811 Other specific joint derangements of right shoulder, not elsewhere classified (principal); M24.511 Contracture, right shoulder
CPT/HCPCS: 64417; 64418; 77002

== ENCOUNTER → 2023-03-29 13:46 | Outpatient (BNVA) | payer OTHER, SELFPAY | PROVIDERS: PCP Internal Medicine; Visit Provider Anesthesiology ==

== ENCOUNTER 2023-04-13 12:57 | Emergency (ER) | payer OTHER, SELFPAY ==
--- NOTE | ~2023-04-13 | XR_ITS ---
EXAMINATION: XR KNEE, RIGHT CLINICAL INFORMATION: Knee pain COMPARISON: None available. TECHNIQUE: Four views of the right knee. FINDINGS: There is no joint effusion. There is mild medial joint space narrowing but no fracture or destructive process. XR/XR knee RT 2V IMPRESSION: No acute findings. Mild medial degenerative change.
[2023-04-13 13:03] VITALS: BP 156/78; PULSE 98; O2SAT 98
[2023-04-13 13:05] VITALS: BP 124/85; PULSE 97; RESP 18; TEMP 36.3; O2SAT 97; BMI 32.0
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
[2023-04-13 14:20] VITALS: BP 111/69; PULSE 63; O2SAT 98
[2023-04-13] MEDS: Acetaminophen 325 MG TABLET 975 MG PO (15:10)
[2023-04-13] MEDS: Bacitracin Oint 0.9 GM PACKET 1 APPL TOPICAL (15:27)
[2023-04-13] MEDS: Diphth,Pertus(ACell),Tet Adult 0.5 ML SYRINGE IM (15:37)
== END 2023-04-13 15:47 | disposition home or self-care (01) ==
PROVIDERS: Emergency Provider Emergency Medicine; PCP Internal Medicine
DX: S80.211A Abrasion, right knee, initial encounter (principal); S80.01XA Contusion of right knee, initial encounter; X58.XXXA Exposure to other specified factors, initial encounter; Y93.9 Activity, unspecified; Y92.9 Unspecified place or not applicable; Y99.9 Unspecified external cause status; Z79.899 Other long term (current) drug therapy; Z23 Encounter for immunization
CPT/HCPCS: 73560; 90471; 90715; 99283; 99284

== ENCOUNTER 2023-04-30 11:04 | Outpatient (REF) | payer OTHER, SELFPAY ==
--- NOTE | ~2023-04-30 | XR_ITS ---
EXAMINATION: X-ray bilateral knees X-ray right knee CLINICAL INFORMATION: Knee pain COMPARISON: X-ray 12/11/2022 TECHNIQUE: AP bilateral knees one view. Right knee 2 views. FINDINGS: Right knee: Mild medial compartment joint space narrowing. Marginal patellar spurs. No significant joint effusion. No acute fracture or destructive process. Small chronic ossification projected posterior to the distal femur, could reflect a fabella. Left knee: Marginal spurring in the medial compartment on the frontal view. No acute findings seen. XR/XR knee standing BI IMPRESSION: Right knee: No acute findings. Mild degenerative changes as above.
--- NOTE | ~2023-04-30 | XR_ITS ---
EXAMINATION: X-ray bilateral knees X-ray right knee CLINICAL INFORMATION: Knee pain COMPARISON: X-ray 12/11/2022 TECHNIQUE: AP bilateral knees one view. Right knee 2 views. FINDINGS: Right knee: Mild medial compartment joint space narrowing. Marginal patellar spurs. No significant joint effusion. No acute fracture or destructive process. Small chronic ossification projected posterior to the distal femur, could reflect a fabella. Left knee: Marginal spurring in the medial compartment on the frontal view. No acute findings seen. XR/XR knee RT 2V IMPRESSION: Right knee: No acute findings. Mild degenerative changes as above.
== END 2023-04-30 11:05 | disposition home or self-care (01) ==
LOC: HO.HOSX 11:04
PROVIDERS: PCP Internal Medicine; Visit Provider Orthopaedic Surgery
DX: M25.561 Pain in right knee (principal); M25.551 Pain in right hip; S80.01XA Contusion of right knee, initial encounter; V89.2XXA Person injured in unspecified motor-vehicle accident, traffic, initial encounter; Y93.9 Activity, unspecified; Y92.9 Unspecified place or not applicable; Y99.9 Unspecified external cause status
CPT/HCPCS: 20610; 73560; 73565; 99212; J1100

== ENCOUNTER 2023-04-30 11:04 | Outpatient (AMB) | payer OTHER, SELFPAY ==
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
[2023-04-30 11:05] VITALS: BMI 31.8
== END 2023-04-30 12:06 | disposition home or self-care (01) ==
PROVIDERS: PCP Internal Medicine; Visit Provider Orthopaedic Surgery
DX: S80.01XA Contusion of right knee, initial encounter (principal); Z04.3 Encounter for examination and observation following other accident
CPT/HCPCS: 20610; 99214

== ENCOUNTER 2023-05-31 10:14 | Outpatient (AMB) | payer OTHER, SELFPAY ==
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
[2023-05-31 10:40] VITALS: BMI 31.8
== END 2023-05-31 11:29 | disposition home or self-care (01) ==
PROVIDERS: PCP Internal Medicine; Visit Provider Orthopaedic Surgery
DX: M24.811 Other specific joint derangements of right shoulder, not elsewhere classified (principal); M17.11 Unilateral primary osteoarthritis, right knee; M25.562 Pain in left knee
CPT/HCPCS: 20610; 99214

== ENCOUNTER → 2023-05-31 10:14 | Outpatient (BNVA) | payer OTHER, SELFPAY | PROVIDERS: PCP Internal Medicine; Visit Provider Orthopaedic Surgery | DX: M17.11 Unilateral primary osteoarthritis, right knee (principal); M25.562 Pain in left knee; M24.811 Other specific joint derangements of right shoulder, not elsewhere classified | CPT/HCPCS: 20610; J1100 ==

== ENCOUNTER 2023-06-18 12:00 | Outpatient (AMB) | payer OTHER, SELFPAY ==
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
== END 2023-06-18 13:25 | disposition home or self-care (01) ==
PROVIDERS: PCP Internal Medicine; Visit Provider Orthopaedic Surgery
DX: M24.811 Other specific joint derangements of right shoulder, not elsewhere classified (principal); M17.11 Unilateral primary osteoarthritis, right knee; M25.562 Pain in left knee; Z04.3 Encounter for examination and observation following other accident
CPT/HCPCS: 20610; 99214

== ENCOUNTER 2023-06-18 12:00 | Outpatient (REF) | payer OTHER, SELFPAY ==
--- NOTE | ~2023-06-18 | XR_ITS ---
EXAMINATION: XR SHOULDER, RIGHT CLINICAL INFORMATION: Pain in unspecified shoulder COMPARISON: Right shoulder 06/17/2021 TECHNIQUE: AP neutral, AP Grashey and axillary views of the right shoulder. FINDINGS: The bones are intact. No fracture. Glenohumeral and acromioclavicular alignment is anatomic with normal glenohumeral joint space. There are mild degenerative changes of the acromioclavicular joint. Small osteophytes are present at the inferior aspect of the glenohumeral joint. No abnormal soft tissue calcifications. XR/XR shoulder RT min 2V IMPRESSION: 1. No acute bony abnormality. 2. Mild degenerative changes.
--- NOTE | ~2023-06-18 | XR_ITS ---
EXAMINATION: XR KNEE AP STANDING CLINICAL INFORMATION: Pain in unspecified knee COMPARISON: Bilateral knees standing 04/30/2023 TECHNIQUE: AP bilateral standing view of the knees was obtained. Lateral and sunrise view of the right knee were also obtained FINDINGS: Right knee: Mild medial compartment joint space narrowing. Marginal patellar spurs. No significant joint effusion. No acute fracture or destructive process. Small chronic ossification projected posterior to the distal femur, could represent a fabella. On the lateral view, question of a small loose body within the joint. Left knee: Marginal spurring of the medial joint compartment on the frontal view. No acute findings seen. XR/XR knee standing BI IMPRESSION: Right knee: No acute findings. Mild degenerative changes as above. Question of small loose body within the joint.
--- NOTE | ~2023-06-18 | XR_ITS ---
EXAMINATION: XR KNEE AP STANDING CLINICAL INFORMATION: Pain in unspecified knee COMPARISON: Bilateral knees standing 04/30/2023 TECHNIQUE: AP bilateral standing view of the knees was obtained. Lateral and sunrise view of the right knee were also obtained FINDINGS: Right knee: Mild medial compartment joint space narrowing. Marginal patellar spurs. No significant joint effusion. No acute fracture or destructive process. Small chronic ossification projected posterior to the distal femur, could represent a fabella. On the lateral view, question of a small loose body within the joint. Left knee: Marginal spurring of the medial joint compartment on the frontal view. No acute findings seen. XR/XR knee RT 2V IMPRESSION: Right knee: No acute findings. Mild degenerative changes as above. Question of small loose body within the joint.
== END 2023-06-18 12:01 | disposition home or self-care (01) ==
LOC: HO.HOSX 12:00
PROVIDERS: PCP Internal Medicine; Visit Provider Orthopaedic Surgery
DX: M24.811 Other specific joint derangements of right shoulder, not elsewhere classified (principal); M17.11 Unilateral primary osteoarthritis, right knee; M25.562 Pain in left knee
CPT/HCPCS: 20610; 73030; 73560; 73565; J0665; J1100

== ENCOUNTER 2023-06-22 13:46 | Outpatient (AMB) | payer OTHER, SELFPAY ==
--- NOTE | 2023-06-22 13:50 | MHC.OFFVIS ---
Intake Vital Signs 06/22/23 13:51 Height 5 ft 6 in Weight 216 lb 7.903 oz BMI 34.9 BP 142/72 H Blood Pressure Location Rt brachial Position Sitting Pulse 56 Pulse Source Pulse Oximeter Intake Visit Reasons: abdominal pain Intake Note: Pt presents to the office today for abdominal pain. Pt states everyday she has stomach pain and vomits everyday a few times a day mainly after eating. Pt denies any diarrhea. Pt states she has tried changing her diet with no help to her pain. Allergies Influenza Virus Vaccines Allergy (Severe, Verified 07/09/23 16:18) trouble breathing strawberry Allergy (Severe, Verified 07/09/23 16:18) Rash ergocalciferol (vitamin D2) [From Vitamin D2] Allergy (Mild, Verified 07/09/23 16:18) Rash penicillin V Allergy (Mild, Verified 07/09/23 16:18) swelling meloxicam Adverse Reaction (Mild, Verified 07/09/23 16:18) Palpitations nuts Allergy (Severe, Uncoded 06/22/23 13:54) Rash HPI abdominal pain HPI Details LAST VISIT Helicobacter pylori (H. pylori) Will send patient for upper endoscopy. Patient failed several treatments with different antibiotics. Please take sample and check microbiology for susceptibility. Screen for colon cancer Patient is agreeable to go for colonoscopy. Patient denies any ill effects from anesthesia in the past. Patient is not on any anticoagulation medication. Dianna WERNER will go over the prep with patient again to assure compliance with clear liquid diet and how to take the prep. GERD (gastroesophageal reflux disease) Continue pantoprazole. I will send patient script for sucralfate so she can take it at nighttime. Patient will be sent for upper endoscopy to rule out gastritis, esophagitis, duodenitis, gastric or duodenal ulcers, celiac, Crocker's IBS (irritable bowel syndrome) Postprandial abdominal bloating. Discussed with patient will FODMAP diet. Patient has list at home of food that she should avoid and food that is recommended. Postprandial abdominal bloating Frequent postprandial abdominal bloating. Low FODMAP diet discussed with patient. Patient was encouraged to go over the list. Also discussed with patient that she has pancreatic insufficiency and must take her enzymes with food as directed. I will see her after the procedure, sooner on as needed basis. Patient is agreeable to this plan and verbalizes understanding of instructions. She was given the opportunity to ask questions and all questions answered. ? Thank you for allowing me to participate in her care Plan Medications New sucralfate 1 g PO BEDTIME 30 tabs 4RF R19.7 - Diarrhea, unspecified Refilled ondansetron 4 mg PO Q8H PRN 20 tabs 0RF nausea and vomiting R11.0 - Nausea pantoprazole take one tablet half an hour before breakfast 40 mg PO DAILY 90 tabs 2RF K21.9 - Gastro-esophageal reflux disease without esophagitis Discontinued famotidine Discontinued Reason: Doctor's Order 40 mg PO BEDTIME 90 tabs 3RF K21.9 - Gastro-esophageal reflux disease without esophagitis TODAY'S VISIT Patient is here today for follow-up. Patient was unable to go to colonoscopy as she continues to feel nauseous and is unable to drink fluids. Patient continues to have epigastric discomfort. Previously was sent for gastric emptying study and patient was unable to keep her food down and vomited few minutes after. This study was not sufficient. Patient continues to have a epigastric discomfort. Patient reports that she is eating only small amounts and does not understand why she is gaining weight if she is not eating much. At this point we will send patient for upper endoscopy to figure out if she still has H pylori. [facility] Medical History Helicobacter pylori (H. pylori) Screen for colon cancer Insomnia DUKE (generalized anxiety disorder) Major depressive disorder, recurrent episode, moderate with mood-congruent psychotic features Right shoulder pain Class 1 obesity with body mass index (BMI) of 33.0 to 33.9 in adult Ophthalmoplegic migraine Moderate asthma Dyslipidemia Surgical History (Updated 07/09/23 @ 16:19 by THANH Harris) History of esophagogastroduodenoscopy (EGD) Hx of colonoscopy History of ear surgery History of tubal ligation History of appendectomy Family History Mother Cancer Father Cancer Substance use disorder Other Right shoulder pain Social History Housing: Apartment Alcohol intake: never Comment: baseline Patient Tobacco Use Status: Never used Tobacco Tobacco use type: Cigarette e-Cigarette/Vaping Use: Never Used Second Hand Smoke Exposure: No service: No Current occupational status: unemployed Cognitive needs: Yes Hearing needs: No Vision needs: No Review of Systems Const Denies weight gain and Denies weight loss ENT Reports no additional complaints, Denies dysphagia and Denies odynophagia Card Reports no additional complaints Resp Reports no additional complaints GI Reports abdominal pain (epigastric), Denies belching, Denies melena, Denies bloating, Denies change in bowel habits, Denies dysphagia, Denies excessive flatus, Reports dyspepsia, Reports heartburn, Denies diarrhea, Denies loose stools, Reports nausea, Denies odynophagia and Denies vomiting Reports no additional complaints Musc Reports no additional complaints Neuro Reports no additional complaints Psych Reports no additional complaints Endo Reports no additional complaints Physical Exam Vital Signs: Last Vital Signs Pulse 56 06/22/23 13:51 BP 142/72 H 06/22/23 13:51 BMI result Body Mass Index 34.9 Const General: healthy appearing, no acute distress and well developed Nutritional Appearance: obese Orientation/consciousness: patient oriented x3 HEENT Head: Yes normal to inspection, Yes normocephalic and Yes atraumatic Face and sinus: Yes normal facial exam Mouth: Normal oral and palatal mucosa present Throat: Yes posterior oropharynx normal, Yes tonsils normal and Yes uvula midline Eyes General: appearance normal, both eyes and all related structures Neck Neck: Yes normal visual inspection, Yes full ROM and Yes trachea midline Thyroid: Thyroid normal Resp Effort & Inspection: normal respiratory effort, able to speak in complete sentences, no tracheal deviation and symmetric chest movement Auscultation: clear to auscultation bilaterally Cardio Rate: regular rate Heart sounds: S1 normal heart sound present and S2 normal heart sound present GI Inspection: Yes normal to inspection, No distended and Yes obesity Palpation (GI): Soft to palpation, not firm, nontender and No hepatosplenomegaly present Auscultation: normal bowel sounds General: Yes no CVA tenderness Back/Spine/Pelvis Back: no CVA tenderness Skin General skin exam: elasticity normal, turgor normal and dry skin Neuro General: patient oriented x3 Psych Appearance: grossly normal Mental Status: mental status grossly normal Assessment & Plan Assessment & Plan (1) Helicobacter pylori (H. pylori): Code(s): A04.8 - Other specified bacterial intestinal infections (2) GERD (gastroesophageal reflux disease): Code(s): K21.9 - Gastro-esophageal reflux disease without esophagitis Qualifiers: Esophagitis presence: esophagitis presence not specified Qualified Code(s): K21.9 - Gastro-esophageal reflux disease without esophagitis (3) IBS (irritable bowel syndrome): Code(s): K58.9 - Irritable bowel syndrome without diarrhea Qualifiers: Irritable bowel syndrome type: without diarrhea Qualified Code(s): K58.9 - Irritable bowel syndrome without diarrhea (4) Postprandial abdominal bloating: Code(s): R14.0 - Abdominal distension (gaseous) Plan Patient will start taking pantoprazole 40 mg half an hour before breakfast again. Patient will stop drinking lactose. We will send her for upper endoscopy for now. Patient is unable to even drink 1 or 2 cups of fluid right now. Patient reports that what ever she eats she is vomiting few minutes after. Patient was sent for gastric emptying study and was unable to go to the process as she vomited almost immediately after taking the prep. Patient most likely has a gastroparesis. Will send her for upper endoscopy. Will rule out reflux, gastritis, H pylori, Crocker's, Schatzki ring, achalasia, duodenitis, duodenal or gastric ulcers. I will see her after the procedure. If patient has H pylori we will need to sent for cultures to make sure that she will have appropriate treatment. Medications: Refilled pantoprazole take one tablet half an hour before breakfast 40 mg PO DAILY 90 tabs 2RF K21.9 - Gastro-esophageal reflux disease without esophagitis Discontinued linaclotide Discontinued Reason: Doctor's Order 145 mcg PO DAILY 30 caps 2RF ondansetron Discontinued Reason: Patient Completed Course 4 mg PO Q8H PRN 20 tabs 0RF nausea and vomiting R11.0 - Nausea bisacodyl take at noon the day before colonoscopy Discontinued Reason: Doctor's Order 10 mg (2 x 5 mg) PO ONCE 1 day 2 tabs 0RF polyethylene glycol 3350 Take as directed, mix entire bottle into 64 ounces of a clear liquid. The day before procedure AT 5PM- drink half. Finish drinking remaining half 6 hours before procedure. Drink plenty of clear liquids after your finish drinking the prep. Discontinued Reason: Doctor's Order 238 grams PO ONCE 1 day 238 grams 0RF [id number] 36,000-114,000- 180,000 unit administer with meals and/or snacks Discontinued Reason: Patient no longer taking 1 cap PO QID 120 caps 3RF K86.89 - Other specified diseases of pancreas sucralfate Discontinued Reason: Doctor's Order 1 g PO BEDTIME 30 tabs 4RF R19.7 - Diarrhea, unspecified Coding Level of Care Code Est Pt Level 4 (12296) Diagnoses Helicobacter pylori (H. pylori) A04.8 Gastroesophageal reflux disease, unspecified whether esophagitis present K21.9 Esophagitis presence: esophagitis presence not specified Irritable bowel syndrome without diarrhea K58.9 Irritable bowel syndrome type: without diarrhea Postprandial abdominal bloating R14.0 Time Spent (min) 35 Comment 25 minute spent with patient and additional 10 minutes spent reviewing her record
[2023-06-22 13:51] VITALS: BP 142/72; PULSE 56; BMI 34.9
== END 2023-06-22 14:40 | disposition home or self-care (01) ==
PROVIDERS: PCP Internal Medicine; Visit Provider Nurse Practitioner Family
DX: A04.8 Other specified bacterial intestinal infections (principal); K21.9 Gastro-esophageal reflux disease without esophagitis; K58.9 Irritable bowel syndrome, unspecified; R14.0 Abdominal distension (gaseous)
CPT/HCPCS: 99214

== ENCOUNTER → 2023-06-22 13:46 | Outpatient (BNVA) | payer OTHER, SELFPAY | PROVIDERS: PCP Internal Medicine; Visit Provider Nurse Practitioner Family | DX: K21.9 Gastro-esophageal reflux disease without esophagitis (principal); K58.9 Irritable bowel syndrome, unspecified; R14.0 Abdominal distension (gaseous); A04.8 Other specified bacterial intestinal infections | CPT/HCPCS: 99212 ==

== ENCOUNTER 2023-06-23 13:13 | Day surgery (SDC) | payer OTHER, SELFPAY ==
--- NOTE | 2023-06-23 13:54 | MHC.SHP ---
Pre-Procedural Eval Section A Date of Service: 06/23/23 Section B Chief Complaint: GERD and abdominal pain Relevant Family History (Specify if Yes): No Relevant Social History: None Present Medications: see Short Stay Collaborative assessment Medical History: Significant History (Helicobacter pylori (H. pylori) Screen for colon cancer Insomnia DUKE (generalized anxiety disorder) Major depressive disorder, recurrent episode, moderate with mood-congruent psychotic features Right shoulder pain Class 1 obesity with body mass index (BMI) of 33.0 to 33.9 in adult Ophthalmoplegic mi) History of Previous Operations: Relevant previous surgery/procedure and date(s) (appendectomy) Allergies: Allergies Allergy/AdvReac Type Severity Reaction Status Date / Time Influenza Virus Vaccines Allergy Severe trouble Verified 06/22/23 13:54 breathing seafood Allergy Severe Facial Verified 06/22/23 13:54 Swelling strawberry Allergy Severe Rash Verified 06/22/23 13:54 ergocalciferol (vitamin D2) Allergy Mild Rash Verified 06/22/23 13:54 [From Vitamin D2] penicillin V Allergy Mild swelling Verified 06/22/23 13:54 meloxicam AdvReac Mild Palpitation Verified 06/22/23 13:54 s nuts Allergy Severe Rash Uncoded 06/22/23 13:54 Review of Systems Sugical H&P ROS: Negative: Constitution, Cardiovascular, Respiratory, Neurological, Psychiatric, Hem-Onc, Allergic/Immunologic, Gastrointestinal, Genitourinary, Musculoskeletal, Integumentary, Endocrine and Eyes/Ears/Nose/Throat Exam Surgical H&P Exam: Normal: HEENT, Normal: Heart, Normal: Lungs, Normal: Extremities, Normal: Abdomen, Normal: Skin and Normal: Neurological Plan Diagnosis/Plan: Unchanged I have reviewed the history and physical and performed a pertinent physical examination on my patient. No changes have occurred unless specified. Time Spent With Patient Time: Total time managing care of this patient today ____ minutes.
[2023-06-23 13:59] VITALS: BMI 32.1
[2023-06-23 14:11] VITALS: BP 128/74; PULSE 60; RESP 15; TEMP 36.9; O2SAT 98
--- NOTE | 2023-06-23 14:17 | HO.ANESPROP2 ---
HPI - Anesthesia Eval Consult details Narrative: 63 F for EGD PMFSH Active Problems Active Problems: All Active Problems (Updated 05/31/23 @ 11:55 by Scout Pizano) Osteoarthritis of right knee (Acute) Left knee pain (Acute) Left shoulder pain (Acute) Postmenopausal (Acute) Left breast mass (Acute) Physical exam (Acute) Migraine with aura (Acute) Migraines (Acute) Internal derangement of right shoulder (Acute) Sensorineural hearing loss of right ear (Acute) Asthma (Acute) Night terrors, adult (Acute) Vitamin D deficiency (Acute) Hyperlipidemia (Acute) Angina at rest (Acute) Hearing loss of right ear (Acute) Rotator cuff injury (Acute) Shoulder arthritis (Acute) Helicobacter pylori (H. pylori) (Acute) Screen for colon cancer (Acute) Insomnia (Acute) DUKE (generalized anxiety disorder) (Acute) Major depressive disorder, recurrent episode, moderate with mood-congruent psychotic features (Acute) Right shoulder pain (Chronic) Class 1 obesity with body mass index (BMI) of 33.0 to 33.9 in adult (Acute) Ophthalmoplegic migraine (Acute) Moderate asthma (Acute) Dyslipidemia (Acute) Past Medical History Medical History Helicobacter pylori (H. pylori) Screen for colon cancer Insomnia DUKE (generalized anxiety disorder) Major depressive disorder, recurrent episode, moderate with mood-congruent psychotic features Right shoulder pain Class 1 obesity with body mass index (BMI) of 33.0 to 33.9 in adult Ophthalmoplegic migraine Moderate asthma Dyslipidemia Family History Family History Mother Cancer Father Cancer Substance use disorder Other Right shoulder pain Family history of problems with anesthesia: No Surgical History Surgical History (Updated 06/23/23 @ 14:07 by Norma Brooks RN) History of ear surgery History of tubal ligation History of appendectomy History of Problems with Anesthesia: No Social History Social History Housing: Apartment Alcohol intake: never Patient Tobacco Use Status: Never used Tobacco Tobacco use type: Cigarette e-Cigarette/Vaping Use: Never Used Second Hand Smoke Exposure: No Use of substances other than those prescribed or required for medical reasons: No Are you DNR?: No Advance Directives: No Advance Directives Information Provided: Yes service: No Current occupational status: unemployed Cognitive needs: Yes Hearing needs: No Vision needs: No Meds Allergies Allergy/AdvReac Type Severity Reaction Status Date / Time Influenza Virus Vaccines Allergy Severe trouble Verified 06/23/23 14:37 breathing strawberry Allergy Severe Rash Verified 06/23/23 14:37 ergocalciferol (vitamin D2) Allergy Mild Rash Verified 06/23/23 14:37 [From Vitamin D2] penicillin V Allergy Mild swelling Verified 06/23/23 14:37 meloxicam AdvReac Mild Palpitation Verified 06/23/23 14:37 s nuts Allergy Severe Rash Uncoded 06/22/23 13:54 Home Medications Medication Instructions Recorded Confirmed Last Taken Type tiotropium bromide 2.5 2 puff inhalation DAILY 06/17/21 06/23/23 Unknown History mcg/actuation mist for inhalation (Spiriva Respimat) amitriptyline 25 mg tablet 25 mg PO BEDTIME 12/25/22 06/23/23 Unknown History fluoxetine 40 mg capsule 40 mg PO DAILY 12/25/22 06/23/23 Unknown History Exam Exam Date and Time: June 23, 2023 1417 Height,Weight and Vital Signs: Height 5 ft 6 in Weight 90.265 kg Airway Mallampati Class: III Neck ROM: Full Denture: Upper Loose/Missing/Broken Teeth: Yes Assessment and Plan Assessment Anesthesia Assessment: Anesthesia Plan Discussed and Chart Reviewed Final Anesthetic Review Family History of Problems with Anesthesia: No History of Problems with Anesthesia: No NPO: Yes ASA Class: III Final Preanesthetic Review: Meds/Allgs Chart Reviewed, Consent Obtained/Reviewed and Anes Risks/Benef Reviewed Patient Risk: Intermediate Procedure Risk: Intermediate Anesthetic Plan Anesthetic Plan: MAC: and Agree w/ Assess. and Plan Disposition: Standard PACU
[2023-06-23] MEDS: Lactated Ringers 1,000 ML 50 ML IVCONT (14:34)
--- NOTE | 2023-06-23 15:37 | W.PM.OPN ---
Operative Note Operative Note Date of Service: 06/23/23 Narrative: Procedure Description: EGD Indication: nausea, pain Anesthesia: MAC FLEXIBLE TRANSORAL UPPER GASTROINTESTINAL ENDOSCOPY UPPER ENDOSCOPY Consent: Indications for the procedure and potential complications of bleeding, perforation, reaction to medications and missed diagnosis were discussed with the patient and informed consent was obtained. Instrument: Olympus GIF H 190 J mid size upper endoscope Monitoring: Vital signs and clinical assessment, continuous EKG monitoring, Pulse oximetry, Carbon Dioxide monitoring and blood pressure monitoring were done throughout the procedure. Procedure: The patient was placed in the left lateral decubitis position and pre-procedure medications were administered and a bite block was placed. The endoscope was inserted into the mouth and advanced under direct vision to the third part of duodenum. A careful inspection was made as the upper endoscope was withdrawn including a retroflexed examination of the proximal stomach; Findings and interventions are described below. Findings: Larynx:normal Esophagus: GE junction at 35 cm, diaphragm hiatus at 35 cm, no varices or esophagitis. Stomach: Patchy gastric erythema with atrophy and multiple erosions with some having eschar noted in the antrum.. Biopsies were obtained. Grade 2 flap valve on retroflexed examination of the cardia. Duodenum: erosive duodenitis in bulb, bx taken Intervention: Biopsies as noted above Impression/Findings: erosive duodenitis erosive gastritis PLAN: confirm taking PPI if H pylori pos treat send carafate meantime
[2023-06-23] MEDS: Mag&Al/Sim/Diphenhyd/Lidocaine 10 ML ORAL.SUSP PO (16:31)
[2023-06-23 16:35] VITALS: BP 121/81; PULSE 69; RESP 13; TEMP 36.3; O2SAT 97
[2023-06-23 16:50] VITALS: BP 134/64; PULSE 62; RESP 14; O2SAT 98
[2023-06-23 17:05] VITALS: BP 120/73; PULSE 90; RESP 17; O2SAT 98
[2023-06-23] MEDS: Sucralfate Oral Suspension 1 GM/10 ML ORAL.SUSP PO (17:05)
[2023-06-23 17:20] VITALS: BP 116/80; PULSE 65; RESP 16; TEMP 36.4; O2SAT 97
[2023-06-23] MEDS: Ondansetron ODT 4 MG TAB.RAPDIS TRANSLINGU (17:30)
== END 2023-06-23 17:45 | disposition home or self-care (01) ==
PROVIDERS: PCP Internal Medicine; Visit Provider Internal Medicine Gastroenterology
PROC: 0DJ08ZZ Inspection of Upper Intestinal Tract, Via Natural or Artificial Opening Endoscopic (ICD-10-PCS; CPT 43235; principal; 2023-06-23 15:00)
DX: K29.50 Unspecified chronic gastritis without bleeding (principal); B96.81 Helicobacter pylori [H. pylori] as the cause of diseases classified elsewhere; K21.9 Gastro-esophageal reflux disease without esophagitis; K29.80 Duodenitis without bleeding; K44.9 Diaphragmatic hernia without obstruction or gangrene; K58.9 Irritable bowel syndrome, unspecified; R14.0 Abdominal distension (gaseous); E78.5 Hyperlipidemia, unspecified; F33.1 Major depressive disorder, recurrent, moderate; F41.8 Other specified anxiety disorders; J45.998 Other asthma; G47.00 Insomnia, unspecified; G43.B0 Ophthalmoplegic migraine, not intractable; E66.9 Obesity, unspecified; Z68.34 Body mass index [BMI] 34.0-34.9, adult; Z88.0 Allergy status to penicillin; Z88.8 Allergy status to other drugs, medicaments and biological substances; Z88.7 Allergy status to serum and vaccine; Z87.891 Personal history of nicotine dependence
CPT/HCPCS: 43239; 88305; 88342; J2704; J3010

== ENCOUNTER → 2023-06-23 13:13 | Outpatient (BNV) | payer OTHER, SELFPAY | PROVIDERS: PCP Internal Medicine; Visit Provider Internal Medicine Gastroenterology | DX: R11.2 Nausea with vomiting, unspecified (principal); K29.90 Gastroduodenitis, unspecified, without bleeding | CPT/HCPCS: 43239 ==

== ENCOUNTER 2023-07-05 13:07 | Outpatient (AMB) | payer OTHER, SELFPAY ==
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
== END 2023-07-05 14:09 | disposition home or self-care (01) ==
PROVIDERS: PCP Internal Medicine; Visit Provider Orthopaedic Surgery
DX: M17.11 Unilateral primary osteoarthritis, right knee (principal); M25.562 Pain in left knee; M24.811 Other specific joint derangements of right shoulder, not elsewhere classified
CPT/HCPCS: 20610; 99214

== ENCOUNTER → 2023-07-05 13:07 | Outpatient (BNVA) | payer OTHER, SELFPAY | PROVIDERS: PCP Internal Medicine; Visit Provider Orthopaedic Surgery | DX: M17.11 Unilateral primary osteoarthritis, right knee (principal); M25.562 Pain in left knee; M24.811 Other specific joint derangements of right shoulder, not elsewhere classified; M19.011 Primary osteoarthritis, right shoulder | CPT/HCPCS: 20610; J0665; J1100 ==

== ENCOUNTER → 2023-07-09 16:10 | Outpatient (AMB) | payer OTHER, MEDICAID, SELFPAY ==
--- NOTE | 2023-07-09 16:14 | MHC.OFFVIS ---
Intake Vital Signs 07/09/23 16:15 Height 5 ft 6 in Weight 212 lb 8.41 oz BMI 34.3 BP 110/74 Blood Pressure Location Lt brachial Position Sitting Pulse 66 Intake Visit Reasons: S/P EGD; Dr. Rivera Intake Note: Patient presents in follow up of EGD. CC: Patient c/o N/V, abdominal pain. She underwent EGD on 06/23/[address] Rivera. Mid Level Developer Required: No Accompanied by: Self / Same As Patient Allergies Influenza Virus Vaccines Allergy (Severe, Verified 07/16/23 11:28) trouble breathing strawberry Allergy (Severe, Verified 07/16/23 11:28) Rash ergocalciferol (vitamin D2) [From Vitamin D2] Allergy (Mild, Verified 07/16/23 11:28) Rash penicillin V Allergy (Mild, Verified 07/16/23 11:28) swelling meloxicam Adverse Reaction (Mild, Verified 07/16/23 11:28) Palpitations nuts Allergy (Severe, Uncoded 07/16/23 11:28) Rash HPI S/P EGD; Dr. Rivera HPI Details LAST VISIT Helicobacter pylori (H. pylori) GERD (gastroesophageal reflux disease) IBS (irritable bowel syndrome) Postprandial abdominal bloating Plan Patient will start taking pantoprazole 40 mg half an hour before breakfast again. Patient will stop drinking lactose. We will send her for upper endoscopy for now. Patient is unable to even drink 1 or 2 cups of fluid right now. Patient reports that what ever she eats she is vomiting few minutes after. Patient was sent for gastric emptying study and was unable to go to the process as she vomited almost immediately after taking the prep. Patient most likely has a gastroparesis. Will send her for upper endoscopy. Will rule out reflux, gastritis, H pylori, Crocker's, Schatzki ring, achalasia, duodenitis, duodenal or gastric ulcers. I will see her after the procedure. If patient has H pylori we will need to sent for cultures to make sure that she will have appropriate treatment. Medications Refilled pantoprazole take one tablet half an hour before breakfast 40 mg PO DAILY 90 tabs 2RF K21.9 Discontinued linaclotide Discontinued Reason: Doctor's Order 145 mcg PO DAILY 30 caps 2RF ondansetron Discontinued Reason: Patient Completed Course 4 mg PO Q8H PRN 20 tabs 0RF nausea and vomiting R11.0 bisacodyl take at noon the day before colonoscopy Discontinued Reason: Doctor's Order 10 mg (2 x 5 mg) PO ONCE 1 day 2 tabs 0RF polyethylene glycol 3350 Take as directed, mix entire bottle into 64 ounces of a clear liquid. The day before procedure AT 5PM- drink half. Finish drinking remaining half 6 hours before procedure. Drink plenty of clear liquids after your finish drinking the prep. Discontinued Reason: Doctor's Order 238 grams PO ONCE 1 day 238 grams 0RF rphnaa-[id number]-[id number] 36,000-114,000- 180,000 unit administer with meals and/or snacks Discontinued Reason: Patient no longer taking 1 cap PO QID 120 caps 3RF K86.89 sucralfate Discontinued Reason: Doctor's Order 1 g PO BEDTIME 30 tabs 4RF R19.7 UPPER ENDOSCOPY Findings: Larynx:normal Esophagus: GE junction at 35 cm, diaphragm hiatus at 35 cm, no varices or esophagitis. Stomach: Patchy gastric erythema with atrophy and multiple erosions with some having eschar noted in the antrum.. Biopsies were obtained. Grade 2 flap valve on retroflexed examination of the cardia. Duodenum: erosive duodenitis in bulb, bx taken Intervention: Biopsies as noted above Impression/Findings: erosive duodenitis erosive gastritis PLAN: confirm taking PPI if H pylori pos treat send carafate meantime PATHOLOGY RESULTS: Diagnosis A. Duodenum, biopsy: Duodenal mucosa with predominantly preserved villi in features of peptic/non- specific duodenitis. B. Stomach, biopsy: Chronic Helicobacter gastritis with mild-moderate activity; negative for intestinal metaplasia and dysplasia TODAY'S VISIT: Patient is here today for follow-up and to discuss upper endoscopy results. Biopsy showed chronic H pylori. Duodenitis and gastritis found. Patient is unable to tolerate capsules. Unable to find the appropriate treatment for her at this time. She continues to have nausea occasional vomiting. States that pantoprazole is helping little bed, however she continues to have severe epi gastric discomfort postprandially. Patient is unable to eat large amount of food. Only able to eat very small amount. Patient reports dyspepsia without dysphagia or odynophagia. [facility] Medical History Helicobacter pylori (H. pylori) Screen for colon cancer Insomnia DUKE (generalized anxiety disorder) Major depressive disorder, recurrent episode, moderate with mood-congruent psychotic features Right shoulder pain Class 1 obesity with body mass index (BMI) of 33.0 to 33.9 in adult Ophthalmoplegic migraine Moderate asthma Dyslipidemia Surgical History History of esophagogastroduodenoscopy (EGD) Hx of colonoscopy History of ear surgery History of tubal ligation History of appendectomy Family History Mother Cancer Father Cancer Substance use disorder Other Right shoulder pain Social History Housing: Apartment Alcohol intake: never Comment: baseline Patient Tobacco Use Status: Never used Tobacco Tobacco use type: Cigarette e-Cigarette/Vaping Use: Never Used Second Hand Smoke Exposure: No service: No Current occupational status: unemployed Cognitive needs: Yes Hearing needs: No Vision needs: No Review of Systems Const Denies weight gain and Denies weight loss ENT Reports no additional complaints, Denies dysphagia and Denies odynophagia Card Reports no additional complaints Resp Reports no additional complaints GI Reports abdominal pain (Epigastric), Denies belching, Denies melena, Reports bloating, Denies change in bowel habits, Denies dysphagia, Denies excessive flatus, Denies dyspepsia, Reports heartburn, Denies diarrhea, Denies loose stools, Reports nausea, Denies odynophagia and Reports vomiting Reports no additional complaints Musc Reports no additional complaints Neuro Reports no additional complaints Psych Reports no additional complaints Endo Reports no additional complaints Physical Exam Vital Signs: Last Vital Signs Pulse 66 07/09/23 16:15 BP 110/74 07/09/23 16:15 BMI result Body Mass Index 34.3 Const General: healthy appearing, no acute distress and well developed Nutritional Appearance: obese Orientation/consciousness: patient oriented x3 HEENT Head: Yes normal to inspection, Yes normocephalic and Yes atraumatic Face and sinus: Yes normal facial exam Mouth: Normal oral and palatal mucosa present Throat: Yes posterior oropharynx normal, Yes tonsils normal and Yes uvula midline Eyes General: appearance normal, both eyes and all related structures Neck Neck: Yes normal visual inspection, Yes full ROM and Yes trachea midline Thyroid: Thyroid normal Resp Effort & Inspection: normal respiratory effort, able to speak in complete sentences, no tracheal deviation and symmetric chest movement Auscultation: clear to auscultation bilaterally Cardio Rate: regular rate GI Inspection: Yes normal to inspection and No distended Palpation (GI): Soft to palpation, not firm, nontender and No hepatosplenomegaly present Auscultation: normal bowel sounds General: Yes no CVA tenderness Back/Spine/Pelvis Back: no CVA tenderness Skin General skin exam: elasticity normal, turgor normal and dry skin Neuro General: patient oriented x3 Psych Appearance: grossly normal Mental Status: mental status grossly normal Assessment & Plan Assessment & Plan (1) Helicobacter pylori (H. pylori): Code(s): A04.8 - Other specified bacterial intestinal infections (2) GERD (gastroesophageal reflux disease): Code(s): K21.9 - Gastro-esophageal reflux disease without esophagitis Qualifiers: Esophagitis presence: without esophagitis Qualified Code(s): K21.9 - Gastro-esophageal reflux disease without esophagitis (3) IBS (irritable bowel syndrome): Code(s): K58.9 - Irritable bowel syndrome without diarrhea Qualifiers: Irritable bowel syndrome type: without diarrhea Qualified Code(s): K58.9 - Irritable bowel syndrome without diarrhea (4) Postprandial abdominal bloating: Code(s): R14.0 - Abdominal distension (gaseous) Plan Diagnosed with gastritis and duodenitis. Continue pantoprazole half an hour before breakfast. Patient will continue to take sucralfate twice a day as ordered. We can try her on Reglan. Patient will try to take it 15 minutes before meals up to 4 times a day. Patient was encouraged to eat small meals and more often. I will see her in 1 week to re-evaluate. If patient will be able to tolerate food with help of a Reglan she will more likely be able to tolerate treatment for H pylori. Patient is agreeable to this plan and verbalizes understanding of instructions. She was given the opportunity to ask questions and all questions answered. Thank you for allowing me to participate in her care Medications: New metoclopramide HCl (Reglan) olesya un comprimido 30 minutos antes de las comidas 5 mg PO QIDACHS 120 tabs 0RF K31.84 - Gastroparesis Coding Level of Care Code Est Pt Level 4 (01434) Diagnoses Helicobacter pylori (H. pylori) A04.8 Gastroesophageal reflux disease without esophagitis K21.9 Esophagitis presence: without esophagitis Irritable bowel syndrome without diarrhea K58.9 Irritable bowel syndrome type: without diarrhea Postprandial abdominal bloating R14.0 Time Spent (min) 35 Comment 20 minutes spent with patient and additional 15 minutes spent reviewing her records
[2023-07-09 16:15] VITALS: BP 110/74; PULSE 66; BMI 34.3
== END ==
PROVIDERS: PCP Internal Medicine; Visit Provider Nurse Practitioner Family
DX: A04.8 Other specified bacterial intestinal infections (principal); K21.9 Gastro-esophageal reflux disease without esophagitis; K58.9 Irritable bowel syndrome, unspecified; R14.0 Abdominal distension (gaseous)
CPT/HCPCS: 99214

== ENCOUNTER → 2023-07-09 16:10 | Outpatient (BNVA) | payer OTHER, SELFPAY | PROVIDERS: PCP Internal Medicine; Visit Provider Nurse Practitioner Family | DX: K29.70 Gastritis, unspecified, without bleeding (principal); B96.81 Helicobacter pylori [H. pylori] as the cause of diseases classified elsewhere; K29.80 Duodenitis without bleeding; K21.9 Gastro-esophageal reflux disease without esophagitis; K58.9 Irritable bowel syndrome, unspecified; R14.0 Abdominal distension (gaseous); Z98.890 Other specified postprocedural states | CPT/HCPCS: 99212 ==

== ENCOUNTER 2023-07-16 11:19 | Outpatient (AMB) | payer OTHER, SELFPAY ==
[2023-07-16 11:26] VITALS: BP 127/70; PULSE 64; BMI 34.3
--- NOTE | 2023-07-16 11:26 | A.OFFVIS_ITS ---
Intake Vital Signs 07/16/23 11:26 Height 5 ft 6 in Weight 212 lb 8.41 oz BMI 34.3 BP 127/70 Blood Pressure Location Rt brachial Pulse 64 Pulse Source Pulse Oximeter Intake Visit Reasons: Follow up 1 week Intake Note: Pt presents to the office today for a 1 week follow up. Pt states she has been feeling a little better but pt states she still has some abdominal pain and states she throws up her pantoprazole everyday and is wondering if her body just doesn't like the medication. Cement Finishing Supervisor Required: Yes Cement Finishing Supervisor Language: Customer Resolution Specialist Name: Taye Dubose ([id number]) Allergies Influenza Virus Vaccines Allergy (Severe, Verified 07/16/23 11:28) trouble breathing strawberry Allergy (Severe, Verified 07/16/23 11:28) Rash ergocalciferol (vitamin D2) [From Vitamin D2] Allergy (Mild, Verified 07/16/23 11:28) Rash penicillin V Allergy (Mild, Verified 07/16/23 11:28) swelling meloxicam Adverse Reaction (Mild, Verified 07/16/23 11:28) Palpitations nuts Allergy (Severe, Uncoded 07/16/23 11:28) Rash HPI Follow up 1 week HPI Details Helicobacter pylori (H. pylori) GERD (gastroesophageal reflux disease) IBS (irritable bowel syndrome) Postprandial abdominal bloating Plan Diagnosed with gastritis and duodenitis. Continue pantoprazole half an hour before breakfast. Patient will continue to take sucralfate twice a day as ordered. We can try her on Reglan. Patient will try to take it 15 minutes before meals up to 4 times a day. Patient was encouraged to eat small meals and more often. I will see her in 1 week to re-evaluate. If patient will be able to tolerate food with help of a Reglan she will more likely be able to tolerate treatment for H pylori. Patient is agreeable to this plan and verbalizes understanding of instructions. She was given the opportunity to ask questions and all questions answered. ? Thank you for allowing me to participate in her care Medications New metoclopramide HCl (Reglan) olesya un comprimido 30 minutos antes de las comidas 5 mg PO QIDACHS 120 tabs 0RF K31.84 TODAY'S VISIT Patient is here today for follow-up. Patient states that she is taking Reglan before meals and is doing little better. Patient however still continues to feel nauseous. In the morning patient will have dyspepsia. Takes pantoprazole and feels like she has to vomit almost every morning. Patient wakes up feeling nauseous. Reports that she has been moving her bowels without any issues. Patient denies any melena, hematochezia, unintentional weight loss or ribbon like stools. Patient denies any dysphagia or odynophagia. Patient reports that she is taking sucralfate twice a day. Patient reports to have epigastric discomfort postprandially. As mentioned above in HPI patient was diagnosed with gastritis and duodenitis on endoscopy. [facility] Medical History Helicobacter pylori (H. pylori) Screen for colon cancer Insomnia DUKE (generalized anxiety disorder) Major depressive disorder, recurrent episode, moderate with mood-congruent psychotic features Right shoulder pain Class 1 obesity with body mass index (BMI) of 33.0 to 33.9 in adult Ophthalmoplegic migraine Moderate asthma Dyslipidemia Surgical History History of esophagogastroduodenoscopy (EGD) Hx of colonoscopy History of ear surgery History of tubal ligation History of appendectomy Family History Mother Cancer Father Cancer Substance use disorder Other Right shoulder pain Social History (Reviewed 07/16/23 @ 11: by Adriana Laguerre MA) Housing: Apartment Alcohol intake: never Comment: baseline Patient Tobacco Use Status: Never used Tobacco Tobacco use type: Cigarette e-Cigarette/Vaping Use: Never Used Second Hand Smoke Exposure: No service: No Current occupational status: unemployed Cognitive needs: Yes Hearing needs: No Vision needs: No Review of Systems Const Denies weight gain and Denies weight loss ENT Reports no additional complaints, Denies dysphagia and Denies odynophagia Card Reports no additional complaints Resp Reports no additional complaints GI Reports abdominal pain (Epigastric), Denies belching, Denies melena, Reports bloating, Denies change in bowel habits, Denies dysphagia, Denies excessive flatus, Denies dyspepsia, Reports heartburn, Denies diarrhea, Denies loose stools, Reports nausea, Denies odynophagia and Reports vomiting Reports no additional complaints Musc Reports no additional complaints Neuro Reports no additional complaints Psych Reports no additional complaints Endo Reports no additional complaints Physical Exam Vital Signs: Last Vital Signs Pulse 64 07/16/23 11:26 BP 127/70 07/16/23 11:26 BMI result Body Mass Index 34.3 Const General: healthy appearing, no acute distress and well developed Nutritional Appearance: obese Orientation/consciousness: patient oriented x3 HEENT Head: Yes normal to inspection, Yes normocephalic and Yes atraumatic Face and sinus: Yes normal facial exam Mouth: Normal oral and palatal mucosa present Throat: Yes posterior oropharynx normal, Yes tonsils normal and Yes uvula midline Eyes General: appearance normal, both eyes and all related structures Neck Neck: Yes normal visual inspection, Yes full ROM and Yes trachea midline Thyroid: Thyroid normal Resp Effort & Inspection: normal respiratory effort, able to speak in complete sentences, no tracheal deviation and symmetric chest movement Auscultation: clear to auscultation bilaterally Cardio Rate: regular rate GI Inspection: Yes normal to inspection, No distended and Yes obesity Palpation (GI): Soft to palpation, not firm, nontender and No hepatosplenomegaly present Auscultation: normal bowel sounds General: Yes no CVA tenderness Back/Spine/Pelvis Back: no CVA tenderness Skin General skin exam: elasticity normal, turgor normal and dry skin Neuro General: patient oriented x3 Psych Appearance: grossly normal Mental Status: mental status grossly normal Assessment & Plan Assessment & Plan (1) Helicobacter pylori (H. pylori): Code(s): A04.8 - Other specified bacterial intestinal infections (2) GERD (gastroesophageal reflux disease): Code(s): K21.9 - Gastro-esophageal reflux disease without esophagitis Qualifiers: Esophagitis presence: without esophagitis Qualified Code(s): K21.9 - Gastro-esophageal reflux disease without esophagitis (3) IBS (irritable bowel syndrome): Code(s): K58.9 - Irritable bowel syndrome without diarrhea Qualifiers: Irritable bowel syndrome type: without diarrhea Qualified Code(s): K58.9 - Irritable bowel syndrome without diarrhea (4) Postprandial abdominal bloating: Code(s): R14.0 - Abdominal distension (gaseous) Plan Unfortunately patient is unable to swallow anything that is capsule. I will have patient continue taking Reglan and continue taking pantoprazole every morning half an hour before breakfast. We can order doxycycline. Patient will return in 4 weeks for re-evaluation. Patient was encouraged to call us if she will have any GI concerning symptoms. Patient is agreeable to this plan and verbalizes understanding of instructions. She was given the opportunity to ask questions and all questions answered. Thank you for allowing me to participate in her care Medications: New nitazoxanide must administer with a meal/food 500 mg PO BID 20 tabs 0RF 3 days doxycycline hyclate 100 mg PO BID 20 tabs 0RF 10 days prochlorperazine (Compazine) 25 mg MA ONCE PRN 12 ea 0RF nausea and vomiting Coding Level of Care Code Est Pt Level 4 (89996) Diagnoses Helicobacter pylori (H. pylori) A04.8 Gastroesophageal reflux disease without esophagitis K21.9 Esophagitis presence: without esophagitis Irritable bowel syndrome without diarrhea K58.9 Irritable bowel syndrome type: without diarrhea Postprandial abdominal bloating R14.0 Time Spent (min) 35 Comment 20 minutes spent with patient and additional 15 minutes spent reviewing her records
== END 2023-07-16 13:10 | disposition home or self-care (01) ==
PROVIDERS: PCP Internal Medicine; Visit Provider Nurse Practitioner Family
DX: A04.8 Other specified bacterial intestinal infections (principal); K21.9 Gastro-esophageal reflux disease without esophagitis; K58.9 Irritable bowel syndrome, unspecified; R14.0 Abdominal distension (gaseous)
CPT/HCPCS: 99214

== ENCOUNTER → 2023-07-16 11:19 | Outpatient (BNVA) | payer OTHER, SELFPAY | PROVIDERS: PCP Internal Medicine; Visit Provider Nurse Practitioner Family | DX: K21.9 Gastro-esophageal reflux disease without esophagitis (principal); K58.9 Irritable bowel syndrome, unspecified; A04.8 Other specified bacterial intestinal infections; R14.0 Abdominal distension (gaseous) | CPT/HCPCS: 99212 ==

== ENCOUNTER 2023-08-13 11:04 | Outpatient (AMB) | payer OTHER, SELFPAY ==
--- NOTE | 2023-08-13 11:24 | A.OFFVIS_ITS ---
Intake Vital Signs 08/13/23 11:25 Height 5 ft 6 in Weight 210 lb 5.136 oz BMI 33.9 BP 120/61 Blood Pressure Location Lt brachial Position Sitting Pulse 61 Intake Visit Reasons: follow up Intake Note: Patient presents in office today in follow up of H pylori CC: Patient states that she was doing well while on abx but once she completed the course of abx began to have symptom again. Per patient she began to have headaches, nausea, abdominal pain, and vomiting. Clinical Researcher Required: Yes Clinical Researcher Language: Lithuanian Accompanied by: Self / Same As Patient Allergies Influenza Virus Vaccines Allergy (Severe, Verified 08/13/23 11:29) trouble breathing strawberry Allergy (Severe, Verified 08/13/23 11:29) Rash ergocalciferol (vitamin D2) [From Vitamin D2] Allergy (Mild, Verified 08/13/23 11:29) Rash penicillin V Allergy (Mild, Verified 08/13/23 11:29) swelling meloxicam Adverse Reaction (Mild, Verified 08/13/23 11:29) Palpitations nuts Allergy (Severe, Uncoded 07/16/23 11:28) Rash HPI follow up HPI Details LAST VISIT Plan Unfortunately patient is unable to swallow anything that is capsule. I will have patient continue taking Reglan and continue taking pantoprazole every morning half an hour before breakfast. We can order doxycycline. Patient will return in 4 weeks for re-evaluation. Patient was encouraged to call us if she will have any GI concerning symptoms. Patient is agreeable to this plan and verbalizes understanding of instructions. She was given the opportunity to ask questions and all questions answered. ? Thank you for allowing me to participate in her care Medications New nitazoxanide must administer with a meal/food 500 mg PO BID 20 tabs 0RF 3 days doxycycline hyclate 100 mg PO BID 20 tabs 0RF 10 days prochlorperazine (Compazine) 25 mg WA ONCE PRN 12 ea 0RF nausea and v omiting TODAY'S VISIT: Patient is here today for follow-up. Patient reports that she was doing well when she was taking the antibiotics, however when she stopped her symptoms of epigastric discomfort nausea and vomiting came back. Patient reports that she is doing little better. Taking Reglan before meals, eating very small amounts. Patient reports that she has frequent dyspepsia without dysphagia or odynophagia. Patient reports that she is not emptying her bowels, frequently she feels constipated. Patient reports that she is hardly eating. Not sure if this is happening all the time as patient did not lose any weight. In the last 2 years that I have seen her she has remained the same weight and actually gained few lb since the 1st time I saw her. [facility] Medical History Helicobacter pylori (H. pylori) Screen for colon cancer Insomnia DUKE (generalized anxiety disorder) Major depressive disorder, recurrent episode, moderate with mood-congruent psychotic features Right shoulder pain Class 1 obesity with body mass index (BMI) of 33.0 to 33.9 in adult Ophthalmoplegic migraine Moderate asthma Dyslipidemia Surgical History History of esophagogastroduodenoscopy (EGD) Hx of colonoscopy History of ear surgery History of tubal ligation History of appendectomy Family History Mother Cancer Father Cancer Substance use disorder Other Right shoulder pain Social History Housing: Apartment Alcohol intake: never Comment: baseline Patient Tobacco Use Status: Never used Tobacco Tobacco use type: Cigarette e-Cigarette/Vaping Use: Never Used Second Hand Smoke Exposure: No service: No Current occupational status: unemployed Cognitive needs: Yes Hearing needs: No Vision needs: No Review of Systems Const Denies weight gain and Denies weight loss ENT Reports no additional complaints, Denies dysphagia and Denies odynophagia Card Reports no additional complaints Resp Reports no additional complaints GI Denies abdominal pain, Reports belching, Denies melena, Reports bloating, Denies change in bowel habits, Reports constipation, Denies dysphagia, Denies excessive flatus, Reports dyspepsia, Reports heartburn, Denies diarrhea, Denies loose stools, Denies nausea, Denies odynophagia and Denies vomiting Reports no additional complaints Musc Reports no additional complaints Neuro Reports no additional complaints Psych Reports no additional complaints Endo Reports no additional complaints Physical Exam Vital Signs: Last Vital Signs Pulse 61 08/13/23 11:25 BP 120/61 08/13/23 11:25 BMI result Body Mass Index 33.9 Const General: healthy appearing, no acute distress and well developed Nutritional Appearance: obese Orientation/consciousness: patient oriented x3 Resp Effort & Inspection: normal respiratory effort, able to speak in complete sentences, no tracheal deviation and symmetric chest movement Auscultation: clear to auscultation bilaterally Cardio Rate: regular rate GI Inspection: Yes normal to inspection, No distended and Yes obesity Palpation (GI): Soft to palpation, not firm, nontender and No hepatosplenomegaly present Auscultation: normal bowel sounds General: Yes no CVA tenderness Back/Spine/Pelvis Back: no CVA tenderness Skin General skin exam: elasticity normal, turgor normal and dry skin Neuro General: patient oriented x3 Psych Appearance: grossly normal Mental Status: mental status grossly normal Assessment & Plan Assessment & Plan (1) GERD (gastroesophageal reflux disease): Code(s): K21.9 - Gastro-esophageal reflux disease without esophagitis Qualifiers: Esophagitis presence: without esophagitis Qualified Code(s): K21.9 - Gastro-esophageal reflux disease without esophagitis (2) Postprandial abdominal pain in right upper quadrant: Code(s): R10.11 - Right upper quadrant pain (3) Helicobacter pylori (H. pylori): Code(s): A04.8 - Other specified bacterial intestinal infections (4) IBS (irritable bowel syndrome): Code(s): K58.9 - Irritable bowel syndrome without diarrhea Qualifiers: Irritable bowel syndrome type: without diarrhea Qualified Code(s): K58.9 - Irritable bowel syndrome without diarrhea (5) Constipation: Code(s): K59.00 - Constipation, unspecified Qualifiers: Constipation type: slow transit constipation Qualified Code(s): K59.01 - Slow transit constipation Plan Patient reports right upper quadrant postprandially. Will send her for HIDA scan. Patient will be given script for senna so she can move her bowels. Patient was encouraged to increase fluid intake and activity to promote better bowel motility. Patient can take Reglan before meals. Avoid dietary triggers. Continue taking sucralfate at bedtime. Patient reports that pantoprazole was giving her epigastric discomfort so we will hold off on that for now. All the other PPIs are capsules and patient does not want to take capsule. I will see patient in 5 weeks, sooner on as needed basis. Patient is agreeable to this plan and verbalizes understanding of instructions. She was given the opportunity to ask questions and all questions answered. Thank you for allowing me to participate in her care Orders: Orders NM hepatobiliary w pharm 08/13/23 K21.9 - Gastro-esophageal reflux disease without esophagitis, R10.11 - Right upper quadrant pain Medications: New sennosides (Natural Senna Laxative) 17.2 mg (2 x 8.6 mg) PO BEDTIME 60 tabs 3RF constipation K59.00 - Constipation, unspecified Refilled ondansetron 4 mg PO Q8H PRN 30 tabs 0RF nausea and vomiting metoclopramide HCl (Reglan) olesya un comprimido 30 minutos antes de las comidas 5 mg PO QIDACHS 120 tabs 3RF K31.84 - Gastroparesis Coding Level of Care Code Est Pt Level 4 (10328) Diagnoses Gastroesophageal reflux disease without esophagitis K21.9 Esophagitis presence: without esophagitis Postprandial abdominal pain in right upper quadrant R10.11 Helicobacter pylori (H. pylori) A04.8 Irritable bowel syndrome without diarrhea K58.9 Irritable bowel syndrome type: without diarrhea Slow transit constipation K59.01 Constipation type: slow transit constipation Time Spent (min) 35 Comment 25 minutes spent with patient and additional 10 minutes spent reviewing her records
[2023-08-13 11:25] VITALS: BP 120/61; PULSE 61; BMI 33.9
== END 2023-08-13 12:08 | disposition home or self-care (01) ==
PROVIDERS: PCP Internal Medicine; Visit Provider Nurse Practitioner Family
DX: K21.9 Gastro-esophageal reflux disease without esophagitis (principal); R10.11 Right upper quadrant pain; A04.8 Other specified bacterial intestinal infections; K58.9 Irritable bowel syndrome, unspecified; K59.01 Slow transit constipation
CPT/HCPCS: 99214

== ENCOUNTER → 2023-08-13 11:04 | Outpatient (BNVA) | payer OTHER, SELFPAY | PROVIDERS: PCP Internal Medicine; Visit Provider Nurse Practitioner Family | DX: K21.9 Gastro-esophageal reflux disease without esophagitis (principal); K58.9 Irritable bowel syndrome, unspecified; K59.01 Slow transit constipation; R10.11 Right upper quadrant pain; A04.8 Other specified bacterial intestinal infections | CPT/HCPCS: 99212 ==

== ENCOUNTER → 2023-09-20 13:08 | Outpatient (BNVA) | payer OTHER, SELFPAY | PROVIDERS: PCP Internal Medicine; Visit Provider Orthopaedic Surgery ==

== ENCOUNTER → 2023-10-11 09:29 | Outpatient (REF) | payer OTHER, SELFPAY ==
--- NOTE | ~2023-10-11 | NM_ITS ---
EXAMINATION: BILIARY TRACT IMAGING STUDY WITH CCK CLINICAL INFORMATION: Right upper quadrant pain. Gastroesophageal reflux disease without esophagitis.. COMPARISON: Scintigraphic gastric emptying study done on 11/04/2022.. TECHNIQUE: Serial gamma scintillation camera images were obtained over the abdomen for a total observation period of 60 minutes following the intravenous administration of 5 mCi Tc-99m mebrofenin. FINDINGS: There is good concentration of activity in the liver by 5 minutes post injection. Biliary activity is visualized by 10 minutes. The gallbladder is well visualized by 30 minutes. Small bowel is well visualized by 25 minutes. At 60 minutes post radiopharmaceutical injection, a 30-minute infusion of 1.9 micrograms Sincalide was then begun and an additional 40 minutes of images were obtained. There is good emptying of the gallbladder. By the end of the study there is good clearance of activity from the liver and visualization of diffuse small bowel activity. The calculated gallbladder ejection fraction is 87% (Normal range of gallbladder ejection fraction is between 35-80%; GBEF <35% is considered biliary hypokinesia and >80% is considered biliary hyperkinesia; Ref. #1-Clinical Journal of Gastroenterology (2020) 14:1308?1317; Ref.#2-[email or web address] [email or web address]/jwutce-jcblqcj-[email or web address]-Gastroent [email or web address]-[email or web address]). NM/NM hepatobiliary w pharm IMPRESSION: Visualization of the gallbladder is evidence of a patent cystic duct and strong evidence against the diagnosis of acute cholecystitis. The common bile duct is patent. Gallbladder emptying and ejection fraction are abnormally high (greater than 80%), consider hyperkinetic gallbladder. Liver function appears normal.
== END ==
LOC: HO.NUCMED 09:29
PROVIDERS: PCP Internal Medicine; Visit Provider Nurse Practitioner Family
DX: K21.9 Gastro-esophageal reflux disease without esophagitis (principal); R10.11 Right upper quadrant pain
CPT/HCPCS: 78227; A9537; J2805

== ENCOUNTER 2023-10-25 10:23 | Outpatient (AMB) | payer OTHER, SELFPAY ==
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
[2023-10-25 10:41] VITALS: BP 132/64; PULSE 69; O2SAT 98; BMI 32.0
== END 2023-10-25 11:08 | disposition home or self-care (01) ==
PROVIDERS: PCP Internal Medicine; Visit Provider Nurse Practitioner Family
DX: M24.811 Other specific joint derangements of right shoulder, not elsewhere classified (principal); M25.511 Pain in right shoulder; G89.29 Other chronic pain; F40.240 Claustrophobia
CPT/HCPCS: 99213

== ENCOUNTER → 2023-10-25 10:23 | Outpatient (BNVA) | payer OTHER, SELFPAY | PROVIDERS: PCP Internal Medicine; Visit Provider Nurse Practitioner Family ==

== ENCOUNTER 2023-10-26 10:58 | Outpatient (AMB) | payer OTHER, SELFPAY ==
[2023-10-26 11:12] VITALS: BP 112/79; PULSE 60; BMI 32.0
--- NOTE | 2023-10-26 11:12 | MHC.OFFVIS ---
Intake Vital Signs 10/26/23 11:12 Height 5 ft 6 in Weight 198 lb BMI 32.0 BP 112/79 Blood Pressure Location Lt brachial Position Sitting Pulse 60 Intake Visit Reasons: follow up Nuc scan Intake Note: Hilda presents in the office as a follow up Nuclear Scan. CC: She states that she is having pains in her stomach on the right side. [employer] Required: Yes [employer] Name: [id number] Jonh Allergies Influenza Virus Vaccines Allergy (Severe, Verified 10/26/23 11:12) trouble breathing strawberry Allergy (Severe, Verified 10/26/23 11:12) Rash ergocalciferol (vitamin D2) [From Vitamin D2] Allergy (Mild, Verified 10/26/23 11:12) Rash penicillin V Allergy (Mild, Verified 10/26/23 11:12) swelling meloxicam Adverse Reaction (Mild, Verified 10/26/23 11:12) Palpitations nuts Allergy (Severe, Uncoded 10/26/23 11:12) Rash HPI follow up Nuc scan HPI Details LAST VISIT: GERD (gastroesophageal reflux disease) Postprandial abdominal pain in right upper quadrant Helicobacter pylori (H. pylori) IBS (irritable bowel syndrome) Constipation Plan Patient reports right upper quadrant postprandially. Will send her for HIDA scan. Patient will be given script for senna so she can move her bowels. Patient was encouraged to increase fluid intake and activity to promote better bowel motility. Patient can take Reglan before meals. Avoid dietary triggers. Continue taking sucralfate at bedtime. Patient reports that pantoprazole was giving her epigastric discomfort so we will hold off on that for now. All the other PPIs are capsules and patient does not want to take capsule. I will see patient in 5 weeks, sooner on as needed basis. Patient is agreeable to this plan and verbalizes understanding of instructions. She was given the opportunity to ask questions and all questions answered. ? Thank you for allowing me to participate in her care Orders Orders NM hepatobiliary w pharm 08/13/23 K21.9, R10.11 Medications New sennosides (Natural Senna Laxative) 17.2 mg (2 x 8.6 mg) PO BEDTIME 60 tabs 3RF constipation K59.00 Refilled ondansetron 4 mg PO Q8H PRN 30 tabs 0RF nausea and vomiting metoclopramide HCl (Reglan) olesya un comprimido 30 minutos antes de las comidas 5 mg PO QIDACHS 120 tabs 3RF K31.84 TODAY'S VISIT Patient is here today for follow-up and to discuss HIDA scan results. HIDA scan was normal. No acute processes seen. Patient takes Reglan before each meal and reports that for the most part she is feeling well. Patient is taking pantoprazole in the morning. Takes Senokot daily to help her move her bowels. Patient continues to have a right lower quadrant pain occasionally. Patient denies melena, hematochezia, unintentional weight loss or ribbon. Patient reports occasional dyspepsia without dysphagia or odynophagia. Patient is not taking sucralfate at this time. Patient was not aware that she should be taking it. Patient states that when she gets up in the morning sometimes she feels nauseous and feels epigastric burning PFSH Medical History Helicobacter pylori (H. pylori) Screen for colon cancer Insomnia [facility] (generalized anxiety disorder) Major depressive disorder, recurrent episode, moderate with mood-congruent psychotic features Right shoulder pain Class 1 obesity with body mass index (BMI) of 33.0 to 33.9 in adult Ophthalmoplegic migraine Moderate asthma Dyslipidemia Surgical History History of esophagogastroduodenoscopy (EGD) Hx of colonoscopy History of ear surgery History of tubal ligation History of appendectomy Family History Mother Cancer Father Cancer Substance use disorder Other Right shoulder pain Social History Housing: Apartment Alcohol intake: never Comment: baseline Patient Tobacco Use Status: Never used Tobacco Tobacco use type: Cigarette e-Cigarette/Vaping Use: Never Used Second Hand Smoke Exposure: No service: No Current occupational status: unemployed Cognitive needs: Yes Hearing needs: No Vision needs: No Review of Systems Const Denies weight gain and Denies weight loss ENT Reports no additional complaints, Denies dysphagia and Denies odynophagia Card Reports no additional complaints Resp Reports no additional complaints GI Reports abdominal pain, Denies belching, Denies melena, Reports bloating, Denies change in bowel habits, Reports constipation, Denies dysphagia, Denies excessive flatus, Reports dyspepsia, Reports heartburn, Denies diarrhea, Denies loose stools, Reports nausea, Denies odynophagia and Denies vomiting Reports no additional complaints Musc Reports no additional complaints Neuro Reports no additional complaints Psych Reports no additional complaints Endo Reports no additional complaints Physical Exam Vital Signs: Last Vital Signs Pulse 60 10/26/23 11:12 BP 112/79 10/26/23 11:12 BMI result Body Mass Index 32.0 Const General: healthy appearing, no acute distress and well developed Nutritional Appearance: obese Orientation/consciousness: patient oriented x3 Resp Effort & Inspection: normal respiratory effort, able to speak in complete sentences, no tracheal deviation and symmetric chest movement Auscultation: clear to auscultation bilaterally Cardio Rate: regular rate GI Inspection: Yes normal to inspection, No distended and Yes obesity Palpation (GI): Soft to palpation, not firm, nontender and No hepatosplenomegaly present Auscultation: normal bowel sounds General: Yes no CVA tenderness Back/Spine/Pelvis Back: no CVA tenderness Skin General skin exam: elasticity normal, turgor normal and dry skin Neuro General: patient oriented x3 Psych Appearance: grossly normal Mental Status: mental status grossly normal Results Reviewed Results Reviewed: HIDA SCAN 10/11/2023 IMPRESSION: Visualization of the gallbladder is evidence of a patent cystic duct and strong evidence against the diagnosis of acute cholecystitis. The common bile duct is patent. Gallbladder emptying and ejection fraction are abnormally high (greater than 80%), consider hyperkinetic gallbladder. Liver function appears normal. Assessment & Plan Assessment & Plan (1) Helicobacter pylori (H. pylori): Code(s): A04.8 - Other specified bacterial intestinal infections (2) GERD (gastroesophageal reflux disease): Code(s): K21.9 - Gastro-esophageal reflux disease without esophagitis Qualifiers: Esophagitis presence: esophagitis presence not specified Qualified Code(s): K21.9 - Gastro-esophageal reflux disease without esophagitis (3) Postprandial abdominal pain in right upper quadrant: Code(s): R10.11 - Right upper quadrant pain (4) IBS (irritable bowel syndrome): Code(s): K58.9 - Irritable bowel syndrome without diarrhea Qualifiers: Irritable bowel syndrome type: with constipation Qualified Code(s): K58.1 - Irritable bowel syndrome with constipation (5) Constipation: Code(s): K59.00 - Constipation, unspecified Qualifiers: Constipation type: slow transit constipation Qualified Code(s): K59.01 - Slow transit constipation Plan Continue Reglan with meals. Patient can continue taking pantoprazole in the morning half an hour before breakfast. Patient will take sucralfate at bedtime. Continue smaller meals and more often. Gastroparesis diet in forced with patient. Patient will return in 6 months so we can send her for upper endoscopy with biopsy with culture so we can appropriately treat if she continues to have H pylori. Patient is agreeable to plan of care and verbalizes understanding of instructions. She was given the opportunity to ask questions and all questions answered. Thank you for allowing me to participate in her care Medications: Changed From sucralfate (Carafate) 10 mL PO BID 1,000 mL 1RF To sucralfate (Carafate) 10 mL PO BEDTIME 1,000 mL 1RF Refilled metoclopramide HCl (Reglan) olesya un comprimido 30 minutos antes de las comidas 5 mg PO QIDACHS 120 tabs 3RF K31.84 - Gastroparesis Coding Level of Care Code Est Pt Level 3 (16802) Diagnoses Helicobacter pylori (H. pylori) A04.8 Gastroesophageal reflux disease, unspecified whether esophagitis present K21.9 Esophagitis presence: esophagitis presence not specified Postprandial abdominal pain in right upper quadrant R10.11 Irritable bowel syndrome with constipation K58.1 Irritable bowel syndrome type: with constipation Slow transit constipation K59.01 Constipation type: slow transit constipation Time Spent (min) 30 Comment 20 minutes spent with patient and additional 10 minutes spent reviewing her records
== END 2023-10-26 11:36 | disposition home or self-care (01) ==
PROVIDERS: PCP Internal Medicine; Visit Provider Nurse Practitioner Family
DX: A04.8 Other specified bacterial intestinal infections (principal); K21.9 Gastro-esophageal reflux disease without esophagitis; R10.11 Right upper quadrant pain; K58.1 Irritable bowel syndrome with constipation; K59.01 Slow transit constipation
CPT/HCPCS: 99213

== ENCOUNTER → 2023-10-26 10:58 | Outpatient (BNVA) | payer OTHER, SELFPAY | PROVIDERS: PCP Internal Medicine; Visit Provider Nurse Practitioner Family | DX: R10.11 Right upper quadrant pain (principal); K21.9 Gastro-esophageal reflux disease without esophagitis; A04.8 Other specified bacterial intestinal infections; K58.1 Irritable bowel syndrome with constipation; K59.01 Slow transit constipation | CPT/HCPCS: 99212 ==

== ENCOUNTER → 2024-02-04 12:06 | Outpatient (BNVA) | payer OTHER, SELFPAY | PROVIDERS: PCP Internal Medicine; Visit Provider Orthopaedic Surgery ==

== ENCOUNTER 2024-02-21 10:35 | Outpatient (AMB) | payer OTHER, SELFPAY ==
--- NOTE | 2024-02-21 10:42 | MHC.OFFVIS ---
Vital Signs 02/21/24 10:58 Height 5 ft 6 in Weight 209 lb 7.026 oz BMI 33.8 BP 114/62 Blood Pressure Location Rt brachial Position Sitting Pulse 54 Pulse Source Pulse Oximeter Pulse Oximetry (%) 97 Oxygen Delivery Method Room Air Intake Visit Reasons: Abdominal pain Intake Note: Hilda presents in office today for a scheduled FUV. CC; Hilda was rx'd sucralfate and reglan at her last visit. She now complains of severe bloating and abdominal pain which leads to vomiting. Pt notices sx primarily after eating and drinking any more than very small amounts. Pt reports that these sx have been present since her last appt. Pt denies any clear and obvious signs of blood, however; she does report that her mucus / saliva is off color and somewhat pink. Pt also reports having a very bitter taste, more so than normal, with the vomiting. [employer] Required: Yes [employer] Name: [id number] Robert Allergies Influenza Virus Vaccines Allergy (Severe, Verified 02/21/24 10:45) trouble breathing strawberry Allergy (Severe, Verified 02/21/24 10:45) Rash ergocalciferol (vitamin D2) [From Vitamin D2] Allergy (Mild, Verified 02/21/24 10:45) Rash penicillin V Allergy (Mild, Verified 02/21/24 10:45) swelling meloxicam Adverse Reaction (Mild, Verified 02/21/24 10:45) Palpitations nuts Allergy (Severe, Uncoded 10/26/23 11:12) Rash HPI HPI Abdominal pain: Details: LAST VISIT Helicobacter pylori (H. pylori) GERD (gastroesophageal reflux disease) Postprandial abdominal pain in right upper quadrant IBS (irritable bowel syndrome) Constipation Plan Continue Reglan with meals. Patient can continue taking pantoprazole in the morning half an hour before breakfast. Patient will take sucralfate at bedtime. Continue smaller meals and more often. Gastroparesis diet in forced with patient. Patient will return in 6 months so we can send her for upper endoscopy with biopsy with culture so we can appropriately treat if she continues to have H pylori. Patient is agreeable to plan of care and verbalizes understanding of instructions. She was given the opportunity to ask questions and all questions answered. ? Thank you for allowing me to participate in her care Medications Changed Changed From sucralfate (Carafate) 10 mL PO BID 1,000 mL 1RF Changed To sucralfate (Carafate) 10 mL PO BEDTIME 1,000 mL 1RF Refilled metoclopramide HCl (Reglan) olesya un comprimido 30 minutos antes de las comidas 5 mg PO QIDACHS 120 tabs 3RF K31.84 TODAY'S VISIT Patient is here today for follow-up. Patient reports that she continues to have acid reflux and dyspepsia. Patient states that 15 minutes after she eats or drinks water even water in the morning with her pantoprazole she feels like everything is coming back up. She has phlegm in her stomach and sour taste in her mouth. Patient reports that she has postprandial abdominal bloating. Reports that she is going to the bathroom daily and does not feel like she is constipated. Patient feels like she empties her bowels good every day. Patient feels nauseous every day and with every meal. Takes Zofran and it does not feel it take it is helping. Patient is taking all of her medications, however feels like things are coming up and she does not know if she is able to keep anything down. Patient was last seen in October. Patient does admit that this has been having every day, however no weight loss seen. Patient actually gained 11 lb since last visit. [facility] Medical History Helicobacter pylori (H. pylori) Screen for colon cancer Insomnia [facility] (generalized anxiety disorder) Major depressive disorder, recurrent episode, moderate with mood-congruent psychotic features Right shoulder pain Class 1 obesity with body mass index (BMI) of 33.0 to 33.9 in adult Ophthalmoplegic migraine Moderate asthma Dyslipidemia Surgical History History of esophagogastroduodenoscopy (EGD) Hx of colonoscopy History of ear surgery History of tubal ligation History of appendectomy Family History Mother Cancer Father Cancer Substance use disorder Other Right shoulder pain Social History Housing: Apartment Alcohol intake: never Comment: baseline Patient Tobacco Use Status: Never used Tobacco Tobacco use type: Cigarette e-Cigarette/Vaping Use: Never Used Second Hand Smoke Exposure: No service: No Current occupational status: unemployed Cognitive needs: Yes Hearing needs: No Vision needs: No Review of Systems Const Denies weight gain and Denies weight loss ENT Reports no additional complaints, Denies dysphagia and Denies odynophagia Card Reports no additional complaints Resp Reports no additional complaints GI Reports abdominal pain, Denies belching, Denies melena, Reports bloating, Denies change in bowel habits, Reports constipation, Denies dysphagia, Denies excessive flatus, Reports dyspepsia, Reports heartburn, Denies diarrhea, Denies loose stools, Reports nausea, Denies odynophagia and Denies vomiting Reports no additional complaints Musc Reports no additional complaints Neuro Reports no additional complaints Psych Reports no additional complaints Endo Reports no additional complaints Physical Exam Const General: healthy appearing and no acute distress Nutritional Appearance: obese Orientation/consciousness: patient oriented x3 Resp Effort & Inspection: normal respiratory effort, able to speak in complete sentences, no tracheal deviation and symmetric chest movement Auscultation: clear to auscultation bilaterally Cardio Rate: regular rate GI Inspection: Yes normal to inspection, No distended and Yes obesity Palpation (GI): Soft to palpation, not firm, nontender and No hepatosplenomegaly present Auscultation: normal bowel sounds General: Yes no CVA tenderness Back/Spine/Pelvis Back: no CVA tenderness Skin General skin exam: elasticity normal, turgor normal and dry skin Neuro General: patient oriented x3 Psych Appearance: grossly normal Mental Status: mental status grossly normal Assessment & Plan Assessment & Plan (1) Helicobacter pylori (H. pylori): Code(s): A04.8 - Other specified bacterial intestinal infections Category: Medical (2) GERD (gastroesophageal reflux disease): Code(s): K21.9 - Gastro-esophageal reflux disease without esophagitis Qualifiers: Esophagitis presence: esophagitis presence not specified Qualified Code(s): K21.9 - Gastro-esophageal reflux disease without esophagitis (3) Postprandial abdominal pain in right upper quadrant: Code(s): R10.11 - Right upper quadrant pain (4) IBS (irritable bowel syndrome): Code(s): K58.9 - Irritable bowel syndrome without diarrhea Qualifiers: Irritable bowel syndrome type: without diarrhea Qualified Code(s): K58.9 - Irritable bowel syndrome without diarrhea (5) Constipation: Code(s): K59.00 - Constipation, unspecified Qualifiers: Constipation type: slow transit constipation Qualified Code(s): K59.01 - Slow transit constipation (6) Postprandial epigastric pain: Code(s): R10.13 - Epigastric pain (7) Nausea and vomiting in adult: Code(s): R11.2 - Nausea with vomiting, unspecified Plan Patient continues with the same symptoms of nausea and vomiting after anything she eats. Patient however gains weight instead of losing weight. Unsure how this is happening or if the patient is honest. Discuss this with Dr. Rivera. I do recommend going again for upper endoscopy and culturing to see what medication patient is resistant to to treat H pylori. Furthermore she was asked to return in the office with all her medications because I am not sure if she is taking and what is she taking. Patient is concerned about abdominal burning in the upper region no matter what she eats. Will change from pantoprazole to rabeprazole twice a day. Patient will be sent for upper endoscopy to re-evaluate her esophagus, stomach, possible pyloric dilation. Patient will return in to the office in 3-4 weeks. Sooner on as needed basis. She is agreeable to this plan and verbalizes understanding of instructions. She was given the opportunity to ask questions and all questions answered. Thank you for allowing me to participate in her care Medications: New rabeprazole 20 mg PO BID 60 tabs 3RF Coding Level of Care Code Est Pt Level 4 (99937) Diagnoses Helicobacter pylori (H. pylori) A04.8 Gastroesophageal reflux disease, unspecified whether esophagitis present K21.9 Esophagitis presence: esophagitis presence not specified Postprandial abdominal pain in right upper quadrant R10.11 Irritable bowel syndrome without diarrhea K58.9 Irritable bowel syndrome type: without diarrhea Slow transit constipation K59.01 Constipation type: slow transit constipation Postprandial epigastric pain R10.13 Nausea and vomiting in adult R11.2 Time Spent (min) 35 Comment 25 minutes spent with patient and additional 10 minutes spent reviewing her records
[2024-02-21 10:58] VITALS: BP 114/62; PULSE 54; O2SAT 97; BMI 33.8
== END 2024-02-21 11:20 | disposition home or self-care (01) ==
PROVIDERS: PCP Internal Medicine; Visit Provider Nurse Practitioner Family
DX: A04.8 Other specified bacterial intestinal infections (principal); K21.9 Gastro-esophageal reflux disease without esophagitis; R10.11 Right upper quadrant pain; K58.9 Irritable bowel syndrome, unspecified; K59.01 Slow transit constipation; R10.13 Epigastric pain; R11.2 Nausea with vomiting, unspecified
CPT/HCPCS: 99214

== ENCOUNTER → 2024-02-21 10:35 | Outpatient (BNVA) | payer OTHER, SELFPAY | PROVIDERS: PCP Internal Medicine; Visit Provider Nurse Practitioner Family | DX: R11.2 Nausea with vomiting, unspecified (principal); R10.13 Epigastric pain; R10.11 Right upper quadrant pain; A04.8 Other specified bacterial intestinal infections; K21.9 Gastro-esophageal reflux disease without esophagitis; K58.9 Irritable bowel syndrome, unspecified; K59.01 Slow transit constipation | CPT/HCPCS: 99212 ==

== ENCOUNTER 2024-03-13 10:45 | Outpatient (AMB) | payer OTHER, SELFPAY ==
--- NOTE | 2024-03-13 10:57 | A.OFFVIS_ITS ---
Vital Signs 03/13/24 11:02 Height 5 ft 6 in Weight 206 lb BMI 33.2 BP 98/66 Blood Pressure Location Lt brachial Position Sitting Pulse 61 Intake Visit Reasons: 3 week follow up Intake Note: Patient 3 week follow up for abdominal bloating Patient cc: Vomiting, abdominal pain with bloating, N/V, dizziness, loose stool with some blood, not digestive the food, acid reflex with food coming out from her throat. Accounts Receivable Bookkeeper Required: Yes Accounts Receivable Bookkeeper Name: Mera [id number] Allergies Influenza Virus Vaccines Allergy (Severe, Verified 02/21/24 10:45) trouble breathing strawberry Allergy (Severe, Verified 02/21/24 10:45) Rash ergocalciferol (vitamin D2) [From Vitamin D2] Allergy (Mild, Verified 02/21/24 10:45) Rash penicillin V Allergy (Mild, Verified 02/21/24 10:45) swelling meloxicam Adverse Reaction (Mild, Verified 02/21/24 10:45) Palpitations nuts Allergy (Severe, Uncoded 10/26/23 11:12) Rash HPI HPI 3 week follow up: Details: LAST VISIT Helicobacter pylori (H. pylori) GERD (gastroesophageal reflux disease) Postprandial abdominal pain in right upper quadrant IBS (irritable bowel syndrome) Constipation Postprandial epigastric pain Nausea and vomiting in adult Plan Patient continues with the same symptoms of nausea and vomiting after anything she eats. Patient however gains weight instead of losing weight. Unsure how this is happening or if the patient is honest. Discuss this with Dr. Rivera. I do recommend going again for upper endoscopy and culturing to see what medication patient is resistant to to treat H pylori. Furthermore she was asked to return in the office with all her medications because I am not sure if she is taking and what is she taking. Patient is concerned about abdominal burning in the upper region no matter what she eats. Will change from pantoprazole to rabeprazole twice a day. Patient will be sent for upper endoscopy to re-evaluate her esophagus, stomach, possible pyloric dilation. Patient will return in to the office in 3-4 weeks. Sooner on as needed basis. She is agreeable to this plan and verbalizes understanding of instructions. She was given the opportunity to ask questions and all questions answered. ? Thank you for allowing me to participate in her care Medications New rabeprazole 20 mg PO BID 60 tabs 3RF TODAY'S VISIT Patient is here today for follow-up. Patient reports that she continues to feel the same. Patient was unable to get her medications from the pharmacy and was told that her insurance does not cover it. Patient was not able to get any of her medication. Currently she is not taking rabeprazole, Reglan or Zofran. Patient reports that she is moving her bowels well. Patient continues to have same symptoms as last time with nausea and vomiting anything she eats. Patient does okay with water. [facility] Medical History Helicobacter pylori (H. pylori) Screen for colon cancer Insomnia DUKE (generalized anxiety disorder) Major depressive disorder, recurrent episode, moderate with mood-congruent psychotic features Right shoulder pain Class 1 obesity with body mass index (BMI) of 33.0 to 33.9 in adult Ophthalmoplegic migraine Moderate asthma Dyslipidemia Surgical History History of esophagogastroduodenoscopy (EGD) Hx of colonoscopy History of ear surgery History of tubal ligation History of appendectomy Family History Mother Cancer Father Cancer Substance use disorder Other Right shoulder pain Social History Housing: Apartment Alcohol intake: never Comment: baseline Patient Tobacco Use Status: Never used Tobacco Tobacco use type: Cigarette e-Cigarette/Vaping Use: Never Used Second Hand Smoke Exposure: No service: No Current occupational status: unemployed Cognitive needs: Yes Hearing needs: No Vision needs: No Review of Systems Const Denies weight gain and Denies weight loss ENT Reports no additional complaints, Denies dysphagia and Denies odynophagia Card Reports no additional complaints Resp Reports no additional complaints GI Reports abdominal pain (epigastric), Denies belching, Denies melena, Reports bloating, Denies change in bowel habits, Reports constipation, Denies dysphagia, Denies excessive flatus, Reports dyspepsia, Reports heartburn, Denies diarrhea, Denies loose stools, Reports nausea, Denies odynophagia and Reports vomiting Reports no additional complaints Musc Reports no additional complaints Neuro Reports no additional complaints Psych Reports no additional complaints Endo Reports no additional complaints Physical Exam Vital Signs: Last Vital Signs Pulse 61 03/13/24 11:02 BP 98/66 03/13/24 11:02 BMI result Body Mass Index 33.2 Const General: healthy appearing and no acute distress Nutritional Appearance: obese Orientation/consciousness: patient oriented x3 Resp Effort & Inspection: normal respiratory effort, able to speak in complete sentences, no tracheal deviation and symmetric chest movement Auscultation: clear to auscultation bilaterally Cardio Rate: regular rate GI Inspection: Yes normal to inspection, No distended and Yes obesity Palpation (GI): Soft to palpation, not firm, nontender and No hepatosplenomegaly present Auscultation: normal bowel sounds General: Yes no CVA tenderness Back/Spine/Pelvis Back: no CVA tenderness Skin General skin exam: elasticity normal, turgor normal and dry skin Neuro General: patient oriented x3 Psych Appearance: grossly normal Mental Status: mental status grossly normal Assessment & Plan Assessment & Plan (1) Helicobacter pylori (H. pylori): Code(s): A04.8 - Other specified bacterial intestinal infections Category: Medical (2) GERD (gastroesophageal reflux disease): Code(s): K21.9 - Gastro-esophageal reflux disease without esophagitis Qualifiers: Esophagitis presence: esophagitis presence not specified Qualified Code(s): K21.9 - Gastro-esophageal reflux disease without esophagitis (3) Postprandial abdominal pain in right upper quadrant: Code(s): R10.11 - Right upper quadrant pain (4) IBS (irritable bowel syndrome): Code(s): K58.9 - Irritable bowel syndrome without diarrhea Qualifiers: Irritable bowel syndrome type: without diarrhea Qualified Code(s): K58.9 - Irritable bowel syndrome without diarrhea (5) Constipation: Code(s): K59.00 - Constipation, unspecified Qualifiers: Constipation type: slow transit constipation Qualified Code(s): K59.01 - Slow transit constipation (6) Postprandial epigastric pain: Code(s): R10.13 - Epigastric pain (7) Nausea and vomiting in adult: Code(s): R11.2 - Nausea with vomiting, unspecified Plan embalmer assistant send PA for rabeprazole. Patient will call us if she will not be able to get the medication. Script sent for Zofran and Reglan. Message sent to surgical schedulers for booking upper endoscopy. I will see patient in 2 months, sooner on as needed basis. Patient is to call our office if she will continue to have symptoms. She is agreeable to this plan and verbalizes understanding of instructions. She was given the opportunity to ask questions and all questions answered. Thank you for allowing me to participate in her care Medications: Refilled ondansetron 4 mg PO Q8H PRN 30 tabs 0RF nausea and vomiting rabeprazole 20 mg PO BID 60 tabs 3RF metoclopramide HCl (Reglan) olesya un comprimido 30 minutos antes de las comidas 5 mg PO QIDACHS 120 tabs 3RF K31.84 - Gastroparesis Coding Level of Care Code Est Pt Level 3 (85338) Diagnoses Helicobacter pylori (H. pylori) A04.8 Gastroesophageal reflux disease, unspecified whether esophagitis present K21.9 Esophagitis presence: esophagitis presence not specified Postprandial abdominal pain in right upper quadrant R10.11 Irritable bowel syndrome without diarrhea K58.9 Irritable bowel syndrome type: without diarrhea Slow transit constipation K59.01 Constipation type: slow transit constipation Postprandial epigastric pain R10.13 Nausea and vomiting in adult R11.2 Time Spent (min) 30 Comment 20 minutes spent with patient and additional 10 minutes spent reviewing her records
[2024-03-13 11:02] VITALS: BP 98/66; PULSE 61; BMI 33.2
== END 2024-03-13 11:26 | disposition home or self-care (01) ==
PROVIDERS: PCP Internal Medicine; Visit Provider Nurse Practitioner Family
DX: A04.8 Other specified bacterial intestinal infections (principal); K21.9 Gastro-esophageal reflux disease without esophagitis; R10.11 Right upper quadrant pain; K58.9 Irritable bowel syndrome, unspecified; K59.01 Slow transit constipation; R10.13 Epigastric pain; R11.2 Nausea with vomiting, unspecified
CPT/HCPCS: 99213

== ENCOUNTER → 2024-03-13 10:45 | Outpatient (BNVA) | payer OTHER, SELFPAY | PROVIDERS: PCP Internal Medicine; Visit Provider Nurse Practitioner Family | DX: K21.9 Gastro-esophageal reflux disease without esophagitis (principal); K58.1 Irritable bowel syndrome with constipation; K59.01 Slow transit constipation; R14.0 Abdominal distension (gaseous); A04.8 Other specified bacterial intestinal infections; R10.11 Right upper quadrant pain; R10.13 Epigastric pain; R11.2 Nausea with vomiting, unspecified | CPT/HCPCS: 99212 ==

== ENCOUNTER 2024-03-15 11:49 | Day surgery (SDC) | payer OTHER, SELFPAY ==
[2024-03-15 13:32] VITALS: BMI 33.1
[2024-03-15 13:34] VITALS: BP 118/69; PULSE 44; RESP 16; TEMP 36.2; O2SAT 99
--- NOTE | 2024-03-15 13:57 | MHC.SHP ---
Pre-Procedural Eval Section A - 24 Hr Update-Section A only Date of Service: 03/15/24 Section B - Complete if H&P > 30 days Chief Complaint: gerd,bacterial intestinal infections Relevant Family History (Specify if Yes): No Relevant Social History: None Present Medications: see Short Stay Collaborative assessment Medical History: Significant History (Helicobacter pylori (H. pylori) Screen for colon cancer Insomnia DUKE (generalized anxiety disorder) Major depressive disorder, recurrent episode, moderate with mood-congruent psychotic features Right shoulder pain Class 1 obesity with body mass index (BMI) of 33.0 to 33.9 in adult Ophthalmoplegic mi) History of Previous Operations: Relevant previous surgery/procedure and date(s) (History of ear surgery History of tubal ligation History of appendectomy) Allergies: Allergies Allergy/AdvReac Type Severity Reaction Status Date / Time Influenza Virus Vaccines Allergy Severe trouble Verified 03/15/24 13:38 breathing strawberry Allergy Severe Rash Verified 03/15/24 13:38 ergocalciferol (vitamin D2) Allergy Mild Rash Verified 03/15/24 13:38 [From Vitamin D2] penicillin V Allergy Mild swelling Verified 03/15/24 13:38 meloxicam AdvReac Mild Palpitation Verified 03/15/24 13:38 s nuts Allergy Severe Rash Uncoded 03/15/24 13:38 Review of Systems Sugical H&P ROS: Negative: Constitution, Cardiovascular, Respiratory, Neurological, Psychiatric, Hem-Onc, Allergic/Immunologic, Gastrointestinal, Genitourinary, Musculoskeletal, Integumentary, Endocrine and Eyes/Ears/Nose/Throat Exam Surgical H&P Exam: Normal: HEENT, Normal: Heart, Normal: Lungs, Normal: Extremities, Normal: Abdomen, Normal: Skin and Normal: Neurological Plan Diagnosis/Plan: Unchanged I have reviewed the history and physical and performed a pertinent physical examination on my patient. No changes have occurred unless specified. Time Spent With Patient Time: Total time managing care of this patient today ____ minutes.
--- NOTE | 2024-03-15 14:31 | HO.ANESPROP2 ---
[facility] Active Problems Active Problems: All Active Problems Screening for cervical cancer (Acute) Chronic right shoulder pain (Acute) Osteoarthritis of right knee (Acute) Left knee pain (Acute) Left shoulder pain (Acute) Postmenopausal (Acute) Left breast mass (Acute) Physical exam (Acute) Migraine with aura (Acute) Migraines (Acute) Internal derangement of right shoulder (Acute) Sensorineural hearing loss of right ear (Acute) Asthma (Acute) Night terrors, adult (Acute) Vitamin D deficiency (Acute) Hyperlipidemia (Acute) Angina at rest (Acute) Hearing loss of right ear (Acute) Rotator cuff injury (Acute) Shoulder arthritis (Acute) Helicobacter pylori (H. pylori) (Acute) Screen for colon cancer (Acute) Insomnia (Acute) DUKE (generalized anxiety disorder) (Acute) Major depressive disorder, recurrent episode, moderate with mood-congruent psychotic features (Acute) Right shoulder pain (Chronic) Class 1 obesity with body mass index (BMI) of 33.0 to 33.9 in adult (Acute) Ophthalmoplegic migraine (Acute) Moderate asthma (Acute) Dyslipidemia (Acute) Past Medical History Medical History Helicobacter pylori (H. pylori) Screen for colon cancer Insomnia DUKE (generalized anxiety disorder) Major depressive disorder, recurrent episode, moderate with mood-congruent psychotic features Right shoulder pain Class 1 obesity with body mass index (BMI) of 33.0 to 33.9 in adult Ophthalmoplegic migraine Moderate asthma Dyslipidemia Family History Family History Mother Cancer Father Cancer Substance use disorder Other Right shoulder pain Family history of problems with anesthesia: No Surgical History Surgical History History of esophagogastroduodenoscopy (EGD) Hx of colonoscopy History of ear surgery History of tubal ligation History of appendectomy History of Problems with Anesthesia: No Social History Social History Housing: Apartment Alcohol intake: never Comment: baseline Patient Tobacco Use Status: Never used Tobacco Tobacco use type: Cigarette e-Cigarette/Vaping Use: Never Used Second Hand Smoke Exposure: No Use of substances other than those prescribed or required for medical reasons: No Are you DNR?: No Advance Directives: No Advance Directives Information Provided: Yes service: No Current occupational status: unemployed Cognitive needs: Yes Hearing needs: No Vision needs: No Meds Allergies Allergy/AdvReac Type Severity Reaction Status Date / Time Influenza Virus Vaccines Allergy Severe trouble Verified 03/15/24 13:38 breathing strawberry Allergy Severe Rash Verified 03/15/24 13:38 ergocalciferol (vitamin D2) Allergy Mild Rash Verified 03/15/24 13:38 [From Vitamin D2] penicillin V Allergy Mild swelling Verified 03/15/24 13:38 meloxicam AdvReac Mild Palpitation Verified 03/15/24 13:38 s nuts Allergy Severe Rash Uncoded 03/15/24 13:38 Active Medications: Current Medications Lactated Ringer's (Lr) 1,000 mls @ 100 mls/hr IVCONT .Q10H MOISÉS Home Medications ?Medication ?Instructions ?Recorded ?Confirmed ?Last Taken ?Type tiotropium bromide 2.5 2 puff inhalation DAILY 06/17/21 03/15/24 Unknown History mcg/actuation mist for inhalation (Spiriva Respimat) fluoxetine 40 mg capsule 40 mg PO DAILY 12/25/22 03/15/24 Unknown History amitriptyline 50 mg tablet 50 mg PO BEDTIME 10/25/23 03/15/24 Unknown History bupropion HCl 150 mg 24 hr tablet, 150 mg PO QAM 10/25/23 03/15/24 Unknown History extended release fluoxetine 20 mg capsule 20 mg PO DAILY 10/25/23 03/15/24 Unknown History risperidone 2 mg tablet 2 mg PO BEDTIME 02/21/24 03/15/24 Unknown History Exam Height,Weight and Vital Signs: Height 5 ft 6 in Weight 92.986 kg Last Vital Signs Temp 97.2 F 03/15/24 13:34 Pulse 44 L 03/15/24 13:34 Resp 16 03/15/24 13:34 BP 118/69 03/15/24 13:34 Pulse Ox 99 03/15/24 13:34 O2 Del Method Room Air 03/15/24 13:34 Airway Mallampati Class: III TM Dist: >3cm Neck ROM: Full Denture: Upper Assessment and Plan Assessment Anesthesia Assessment: Anesthesia Plan Discussed and Chart Reviewed Final Anesthetic Review Family History of Problems with Anesthesia: No History of Problems with Anesthesia: No NPO: Yes ASA Class: II Final Preanesthetic Review: No Changes in Pt Med Stat, Meds/Allgs Chart Reviewed, Consent Obtained/Reviewed and Anes Risks/Benef Reviewed Patient Risk: Low Procedure Risk: Low Anesthetic Plan Anesthetic Plan: TIVA Disposition: Standard PACU
[2024-03-15 14:35] VITALS: BP 114/95; PULSE 50; RESP 16; TEMP 36.7; O2SAT 99
[2024-03-15 14:50] VITALS: BP 132/53; PULSE 46; RESP 17; TEMP 36.7; O2SAT 99
--- NOTE | 2024-03-17 23:03 | W.PM.OPN ---
Operative Note Operative Note Date of Service: 03/17/24 Narrative: Procedure Description: EGD Indication: hx of gastritis Anesthesia: MAC FLEXIBLE TRANSORAL UPPER GASTROINTESTINAL ENDOSCOPY UPPER ENDOSCOPY Consent: Indications for the procedure and potential complications of bleeding, perforation, reaction to medications and missed diagnosis were discussed with the patient and informed consent was obtained. Instrument: Olympus GIF H 190 J mid size upper endoscope Monitoring: Vital signs and clinical assessment, continuous EKG monitoring, Pulse oximetry, Carbon Dioxide monitoring and blood pressure monitoring were done throughout the procedure. Procedure: The patient was placed in the left lateral decubitis position and pre-procedure medications were administered and a bite block was placed. The endoscope was inserted into the mouth and advanced under direct vision to the third part of duodenum. A careful inspection was made as the upper endoscope was withdrawn including a retroflexed examination of the proximal stomach; Findings and interventions are described below. Findings: Larynx:normal Esophagus: GE junction at 35 cm, diaphragm hiatus at 35 cm, no varices or esophagitis. Stomach: Patchy gastric erythema with atrophy and several erosions in the antrum.. Biopsies were obtained incl for H pylori culture. Grade 2 flap valve on retroflexed examination of the cardia. Duodenum: normal Intervention: Biopsies as noted above Impression/Findings: erosive gastritis PLAN: cont with PPi awaiti H pylori sens and culture to guide treatment
== END 2024-03-15 15:25 | disposition home or self-care (01) ==
PROVIDERS: PCP Internal Medicine; Visit Provider Internal Medicine Gastroenterology
PROC: 0DJ08ZZ Inspection of Upper Intestinal Tract, Via Natural or Artificial Opening Endoscopic (ICD-10-PCS; CPT 43235; principal; 2024-03-15 14:30)
DX: K21.9 Gastro-esophageal reflux disease without esophagitis (principal); A04.8 Other specified bacterial intestinal infections; K29.50 Unspecified chronic gastritis without bleeding; B96.81 Helicobacter pylori [H. pylori] as the cause of diseases classified elsewhere; K44.9 Diaphragmatic hernia without obstruction or gangrene; K58.9 Irritable bowel syndrome, unspecified; K59.01 Slow transit constipation; J45.998 Other asthma; F33.1 Major depressive disorder, recurrent, moderate; F41.1 Generalized anxiety disorder; G43.B0 Ophthalmoplegic migraine, not intractable; G47.00 Insomnia, unspecified; E78.5 Hyperlipidemia, unspecified; E66.8 Other obesity; Z68.33 Body mass index [BMI] 33.0-33.9, adult; Z88.0 Allergy status to penicillin; Z88.8 Allergy status to other drugs, medicaments and biological substances; Z56.0 Unemployment, unspecified
CPT/HCPCS: 43239; 36415; 87081; 88305; 88313; 88341; 88342; J2704

== ENCOUNTER → 2024-03-15 11:49 | Outpatient (BNV) | payer OTHER, SELFPAY | PROVIDERS: PCP Student in an Organized Health Care Education/Training Program; Visit Provider Internal Medicine Gastroenterology | DX: K29.60 Other gastritis without bleeding (principal) | CPT/HCPCS: 43239 ==

== ENCOUNTER 2024-04-25 11:46 | Outpatient (REF) | payer OTHER, SELFPAY | END 2024-04-25 11:47 | disposition home or self-care (01) | LOC: HO.MAMMO 11:46 | PROVIDERS: PCP Internal Medicine; Visit Provider Internal Medicine | DX: Z12.31 Encounter for screening mammogram for malignant neoplasm of breast (principal) | CPT/HCPCS: 77063; 77067 ==

== ENCOUNTER 2024-05-02 11:13 | Outpatient (AMB) | payer OTHER, SELFPAY ==
[2024-05-02 11:18] VITALS: BP 112/78; PULSE 58; O2SAT 97; BMI 33.8
--- NOTE | 2024-05-02 11:18 | A.OFFVIS_ITS ---
Vital Signs 05/02/24 11:18 Height 5 ft 6 in Weight 209 lb 7.026 oz BMI 33.8 BP 112/78 Blood Pressure Location Rt brachial Position Sitting Pulse 58 Pulse Source Pulse Oximeter Pulse Oximetry (%) 97 Oxygen Delivery Method Room Air Intake Visit Reasons: 2 mos follow up GERD, CIC, gastroparesis Intake Note: Hilda presents in office today for a scheduled 2 mos FUV. CC; Pt was rx'd reglan and zofran at their last visit. Pt reports that they have remained stable since their last visit but have not seen any significant improvements in their sx. Pt is still concerned regarding the bacteria in their stomach. Pt also reports having abdominal distention and epigastric pain. Pt states that this is relatively new since their last visit. Pt reports that they are having a lack of appetite and food avoidance due to the pain that they are having. Pt states that even water intake is causing pain. Pt has been avoiding anything acidic, foods or drinks high in lactose, or spicy foods. Pt has been trying to avoid any triggers possible. Pt reports that they are having multiple bowel movements per day on average. Pt is also reporting associated diarrhea which is also containing a lot of mucus. Real Estate Agency Licensee Required: Yes Real Estate Agency Licensee Services: Real Estate Agency Licensee Present Real Estate Agency Licensee Name: [id number] Ninet Information Interpreted: non-clinical & clinical Accompanied by: Self / Same As Patient Allergies Influenza Virus Vaccines Allergy (Severe, Verified 05/02/24 11:19) trouble breathing strawberry Allergy (Severe, Verified 05/02/24 11:19) Rash tree nut Allergy (Severe, Verified 05/02/24 11:32) Shortness of Breath ergocalciferol (vitamin D2) [From Vitamin D2] Allergy (Mild, Verified 05/02/24 11:19) Rash penicillin V Allergy (Mild, Verified 05/02/24 11:19) swelling meloxicam Adverse Reaction (Mild, Verified 05/02/24 11:19) Palpitations HPI HPI 2 mos follow up GERD, CIC, gastroparesis: Details: LAST VISIT: Helicobacter pylori (H. pylori) GERD (gastroesophageal reflux disease) Postprandial abdominal pain in right upper quadrant IBS (irritable bowel syndrome) Constipation Postprandial epigastric pain Nausea and vomiting in adult Plan physical therapy assistant send PA for rabeprazole. Patient will call us if she will not be able to get the medication. Script sent for Zofran and Reglan. Message sent to surgical schedulers for booking upper endoscopy. I will see patient in 2 months, sooner on as needed basis. Patient is to call our office if she will continue to have symptoms. She is agreeable to this plan and verbalizes understanding of instructions. She was given the opportunity to ask questions and all questions answered. ? Thank you for allowing me to participate in her care Medications Refilled ondansetron 4 mg PO Q8H PRN 30 tabs 0RF nausea and vomiting rabeprazole 20 mg PO BID 60 tabs 3RF metoclopramide HCl (Reglan) olesya un comprimido 30 minutos antes de las comidas 5 mg PO QIDACHS 120 tabs 3RF K31.84 TODAY'S VISIT Patient is here today for follow-up. Patient reports that she continues to have epigastric pain and nausea. Unable to tolerate food. She just began to start the treatment. Was unable to get doxycycline tablet, pharmacy did not had it available. Patient is unable to swallow capsules. Patient reports that she will have occasional postprandial loose stools. 2-3 bowel movements a day. Patient tolerating Reglan well. Reports postprandial abdominal bloating. Denies melena, hematochezia. Reports dyspepsia and dysphagia without odynophagia. Patient reports that she tolerate upper endoscopy well. Denies any issues with anesthesia [facility] Medical History Helicobacter pylori (H. pylori) Screen for colon cancer Insomnia [facility] (generalized anxiety disorder) Major depressive disorder, recurrent episode, moderate with mood-congruent psychotic features Right shoulder pain Class 1 obesity with body mass index (BMI) of 33.0 to 33.9 in adult Ophthalmoplegic migraine Moderate asthma Dyslipidemia Surgical History History of esophagogastroduodenoscopy (EGD) Hx of colonoscopy History of ear surgery History of tubal ligation History of appendectomy Family History Mother Cancer Father Cancer Substance use disorder Other Right shoulder pain Social History Housing: Apartment Alcohol intake: never Comment: baseline Patient Tobacco Use Status: Never used Tobacco Tobacco use type: Cigarette e-Cigarette/Vaping Use: Never Used Second Hand Smoke Exposure: No service: No Current occupational status: unemployed Cognitive needs: Yes Hearing needs: No Vision needs: No Review of Systems Const Denies weight gain and Denies weight loss ENT Reports no additional complaints, Denies dysphagia and Denies odynophagia Card Reports no additional complaints Resp Reports no additional complaints GI Reports abdominal pain (epigastric), Denies belching, Denies melena, Reports bloating, Denies change in bowel habits, Reports constipation, Denies dysphagia, Denies excessive flatus, Reports dyspepsia, Reports heartburn, Denies diarrhea, Reports loose stools, Reports nausea, Denies odynophagia and Reports vomiting Reports no additional complaints Musc Reports no additional complaints Neuro Reports no additional complaints Psych Reports no additional complaints Endo Reports no additional complaints Physical Exam Vital Signs: Last Vital Signs Pulse 58 05/02/24 11:18 BP 112/78 05/02/24 11:18 Pulse Ox 97 05/02/24 11:18 Oxygen Delivery Method Room Air 05/02/24 11:18 BMI result Body Mass Index 33.8 Const General: healthy appearing and no acute distress Nutritional Appearance: obese Orientation/consciousness: patient oriented x3 Resp Effort & Inspection: normal respiratory effort, able to speak in complete sentences, no tracheal deviation and symmetric chest movement Auscultation: clear to auscultation bilaterally Cardio Rate: regular rate GI Inspection: Yes normal to inspection, No distended and Yes obesity Palpation (GI): Soft to palpation, not firm, nontender and No hepatosplenomegaly present Auscultation: normal bowel sounds General: Yes no CVA tenderness Back/Spine/Pelvis Back: no CVA tenderness Skin General skin exam: elasticity normal, turgor normal and dry skin Neuro General: patient oriented x3 Psych Appearance: grossly normal Mental Status: mental status grossly normal Assessment & Plan Assessment & Plan (1) Helicobacter pylori (H. pylori): Code(s): A04.8 - Other specified bacterial intestinal infections Category: Medical (2) GERD (gastroesophageal reflux disease): Code(s): K21.9 - Gastro-esophageal reflux disease without esophagitis Qualifiers: Esophagitis presence: without esophagitis Qualified Code(s): K21.9 - Gastro-esophageal reflux disease without esophagitis (3) Postprandial abdominal pain in right upper quadrant: Code(s): R10.11 - Right upper quadrant pain (4) IBS (irritable bowel syndrome): Code(s): K58.9 - Irritable bowel syndrome, unspecified Qualifiers: Irritable bowel syndrome type: with both diarrhea and constipation Qualified Code(s): K58.2 - Mixed irritable bowel syndrome (5) Constipation: Code(s): K59.00 - Constipation, unspecified Qualifiers: Constipation type: slow transit constipation Qualified Code(s): K59.01 - Slow transit constipation (6) Postprandial epigastric pain: Code(s): R10.13 - Epigastric pain (7) Nausea and vomiting in adult: Code(s): R11.2 - Nausea with vomiting, unspecified Plan Patient was encouraged to finish all of her treatment for H pylori. Will need to be retested 8-10 weeks after finishing of the antibiotics. Patient has been dealing with symptoms for such a long time. Unsure if patient is really following diet to help her with the symptoms. Continue Reglan. Small meals and more often. Long discussion with patient regarding diet and portion control. Diet recommendations made. List of food recommended as well as list of food to avoid given to patient. Patient will follow-up in the office in 2 months, sooner on as needed basis. She is agreeable to this plan and verbalizes understanding of instructions. She was given the opportunity to ask questions and all questions answered. Thank you for allowing me to participate in her care Coding Level of Care Code Est Pt Level 4 (31890) Complex EM visit Add On G2211 Diagnoses Helicobacter pylori (H. pylori) A04.8 Gastroesophageal reflux disease without esophagitis K21.9 Esophagitis presence: without esophagitis Postprandial abdominal pain in right upper quadrant R10.11 Irritable bowel syndrome with both constipation and diarrhea K58.2 Irritable bowel syndrome type: with both diarrhea and constipation Slow transit constipation K59.01 Constipation type: slow transit constipation Postprandial epigastric pain R10.13 Nausea and vomiting in adult R11.2 Time Spent (min) 40 Comment 25 minutes spent with patient and additional 15 minutes spent reviewing her records
== END 2024-05-02 12:04 | disposition home or self-care (01) ==
PROVIDERS: PCP Internal Medicine; Visit Provider Nurse Practitioner Family
DX: A04.8 Other specified bacterial intestinal infections (principal); K21.9 Gastro-esophageal reflux disease without esophagitis; R10.11 Right upper quadrant pain; K58.2 Mixed irritable bowel syndrome; K59.01 Slow transit constipation; R10.13 Epigastric pain; R11.2 Nausea with vomiting, unspecified
CPT/HCPCS: 99214; G2211

== ENCOUNTER → 2024-05-02 11:13 | Outpatient (BNVA) | payer OTHER, SELFPAY | PROVIDERS: PCP Internal Medicine; Visit Provider Nurse Practitioner Family | DX: K21.9 Gastro-esophageal reflux disease without esophagitis (principal); K59.04 Chronic idiopathic constipation; K59.01 Slow transit constipation; K31.84 Gastroparesis; K58.2 Mixed irritable bowel syndrome; R10.11 Right upper quadrant pain; R10.13 Epigastric pain; R11.2 Nausea with vomiting, unspecified; A04.8 Other specified bacterial intestinal infections | CPT/HCPCS: 99212 ==

== ENCOUNTER 2024-05-30 10:12 | Outpatient (AMB) | payer OTHER, SELFPAY ==
[2024-05-30 10:38] VITALS: BP 130/80; PULSE 56; O2SAT 96; BMI 33.4
--- NOTE | 2024-05-30 10:38 | A.OFFPC_ITS ---
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 Accompanied by: Self / Same As Patient Allergies Influenza Virus Vaccines Allergy (Severe, Verified 05/30/24 11:03) trouble breathing strawberry Allergy (Severe, Verified 05/30/24 11:03) Rash tree nut Allergy (Severe, Verified 05/30/24 11:03) Shortness of Breath ergocalciferol (vitamin D2) [From Vitamin D2] Allergy (Mild, Verified 05/30/24 11:03) Rash penicillin V Allergy (Mild, Verified 05/30/24 11:03) swelling meloxicam Adverse Reaction (Mild, Verified 05/30/24 11:03) Palpitations Medication List - Last Reconciled 05/30/24 by Tracy Milton MD acetaminophen ER 1,300 mg (2 x 650 mg) PO Q8H PRN 90 days albuterol sulfate 2.5 mg (3 mL) inhalation Q6H 30 days albuterol sulfate 90 mcg/actuation (ProAir HFA) 2 puffs inhalation Q6H PRN amitriptyline 50 mg PO BEDTIME bismuth subsalicylate 2 tabs PO QID 14 days bupropion HCl XL 150 mg PO QAM clonazepam 0.5 mg PO BID PRN 30 days diclofenac sodium 1% (Arthritis Pain (diclofenac)) 4 grams topical QID fluoxetine 20 mg PO DAILY fluticasone propionate 44 mcg/actuation (Flovent HFA) 2 puffs inhalation BID 30 days loratadine (Allergy Relief (loratadine)) 10 mg PO DAILY 90 days metoclopramide HCl (Reglan) 5 mg PO QIDACHS olopatadine 0.2% (Pataday Once Daily Relief) 1 drp ophthalmic (eye) DAILY PRN 30 days ondansetron 4 mg PO Q8H PRN pantoprazole 40 mg PO DAILY rabeprazole 20 mg PO BID 2 weeks risperidone 2 mg PO BEDTIME sucralfate (Carafate) 10 mL PO BEDTIME tiotropium bromide 2.5 mcg/actuation (Spiriva Respimat) 2 puffs inhalation DAILY topiramate 50 mg PO DAILY 90 days trazodone 100 mg PO BEDTIME Tobacco use date assessed: 05/30/24 Dental Screening Dental Screen Date: 05/30/24 Did you have a dental visit in the last 12 months?: No Did you have a dental problem in the last 6 months where you did not have access to dental care?: No Was dental information given to patient?: Patient has dentist HPI HPI Comments History of Present Illness Details This is a 64-year-old female with moderate recurrent major depression that comes for her physical exam. Depression is follow by Psychiatry. Mammogram done last month and results still pending. Has not had a Pap smear in over 30 years as per patient and will be refer to OBGYN. Has never had a colonoscopy as per patient and is willing to do Cologuard. Complains of occasional chest pain that radiates to the left arm and an EKG will be ordered. Also has hearing loss more prominent in the right and would like to see ENT for that matter. Declines flu vaccine today. [facility] Medical History (Updated 05/30/24 @ 12:00 by Tracy Milton MD) Angina at rest Helicobacter pylori (H. pylori) Screen for colon cancer Insomnia DUKE (generalized anxiety disorder) Major depressive disorder, recurrent episode, moderate with mood-congruent psychotic features Right shoulder pain Class 1 obesity with body mass index (BMI) of 33.0 to 33.9 in adult Ophthalmoplegic migraine Moderate asthma Dyslipidemia Surgical History (Updated 05/30/24 @ 11:10 by Tracy Milton MD) History of esophagogastroduodenoscopy (EGD) History of ear surgery History of tubal ligation History of appendectomy Family History Mother Cancer Father Cancer Substance use disorder Other Right shoulder pain Social History Housing: Apartment Alcohol intake: never Comment: baseline Patient Tobacco Use Status: Never used Tobacco Tobacco use type: Cigarette e-Cigarette/Vaping Use: Never Used Second Hand Smoke Exposure: No service: No Current occupational status: unemployed Cognitive needs: Yes Hearing needs: No Vision needs: No Questionnaire PHQ-9 Over the last 2 weeks, how often have you been bothered by any of the following problems? 1. Little interest or pleasure in doing things: not at all 2. Feeling down, depressed, or hopeless: not at all 3. Trouble falling or staying asleep, or sleeping too much: not at all 4. Feeling tired or having little energy: several days 5. Poor appetite or overeating: not at all 6. Feeling bad about yourself - or that you are a failure or have let yourself or your family down: not at all 7. Trouble concentrating on things, such as reading the newspaper or watching television: not at all 8. Moving or speaking so slowly that other people could have noticed. Or the opposite - being so fidgety or restless that you have been moving around a lot more than usual: not at all 9. Thoughts that you would be better off or of hurting yourself in some way: not at all Total score: 1 Depression Screening Interpretation: Positive Depression Screening Follow-up: Existing condition, In treatment, Community Mental Health Worker F/U and Follow- up Visit Requested Depression Screening Done: Yes 01338 - PHQ-9 Billing: Yes Source: Developed by Drs. Mario Tran, Chanell Rosas, Perfecto Alas and colleagues, with an educational donny from [employer]. Thrive Questionnaire Date Thrive assessed: 05/30/24 I am a: Patient What is your living situation today?: I have a steady place to live Within the past 12 months, did the food you bought not last and you didn't have the money to get more?: Never true Within the past 12 months, did you worry whether your food would run out before you got money to buy more?: Never true Do you have trouble paying for medicines?: No Do you have trouble getting transportation to medical appointments?: No Do you have trouble paying your heating and electricity bill?: No Do you have trouble taking care of your child, family member or friend?: No Do you have trouble with day-to-day activities such as bathing, preparing meals, shopping, managing finances, etc.?: No Are you currently unemployed and looking for a job?: No Are you interested in more education?: No Please select the resources that you would like help with: None Currently or been in a relationship where the following occur: No concerns reported THRIVE Score: 0 AUDIT C Alcohol Use Questionnaire (AUDIT-C) 1. How often do you have a drink containing alcohol?: Never Total Score: 0 DUKE-7 AMB Questionnaire DUKE-7 Date DUKE - 7 assessed: 05/30/24 Feeling nervous, anxious, or on edge: 1 = Several days Not being able to stop or control worryin = Not at all Worrying too much about different things: 1 = Several days Trouble relaxin = Not at all Being so restless that it is hard to sit still: 0 = Not at all Becoming easily annoyed or irritable: 0 = Not at all Feeling afraid as if something awful might happen: 1 = Several days Total DUKE-7 score (0-4 normal; 5-9 mild; 10-14 moderate; 15-21 severe): 3 Source: Developed by Drs. Mario Tran, Chanell Rosas, Perfecto Alas and colleagues, with an educational donny from [employer]. DUKE-7 Assessment Billing DUKE-7 Assessment Tool: DUKE-7 Assessment 45564 Review of Systems Const All systems reviewed & are unremarkable except as noted in HPI and below Card Reports chest pain at rest, Reports chest pain with activity, Denies edema, Denies irregular heart rhythm, Denies claudication, Denies dyspnea, Denies dyspnea on exertion, Denies orthopnea, Denies paroxysmal nocturnal dyspnea and Denies slow heart rate Resp Denies cough, Denies dyspnea and Denies dyspnea on exertion GI Denies abdominal pain, Denies change in bowel habits, Denies excessive flatus, Denies nausea and Denies vomiting Denies urinary incontinence, Denies urinary hesitancy and Denies urinary urgency Musc Denies abnormal gait, Denies atrophy, Denies deformity and Denies limited range of motion Neuro Denies abnormal gait and Denies lack of coordination Physical exam (Primary Care) Vital Signs: Last Vital Signs Pulse 56 05/30/24 10:38 BP 130/80 05/30/24 10:38 Pulse Ox 96 05/30/24 10:38 Oxygen Delivery Method Room Air 05/30/24 10:38 BMI result Body Mass Index 33.4 Tobacco/Smoking Status: Tobacco use Status Tobacco use date assessed 05/30/24 05/30/24 10:47 Patient Tobacco Use Status Never used Tobacco 05/30/24 10:47 Tobacco use type Cigarette 05/30/24 10:47 e-Cigarette/Vaping Use Never Used 05/30/24 10:47 PHQ-9: PHQ-9 Score PHQ-9: Total score 1 05/30/24 11:07 Depression Screening Interpretation: Positive Depression Screening Follow-up: Existing condition, In treatment, Community Mental Health Worker F/U and Follow- up Visit Requested Thrive Assessment: Date of Thrive Assessment Date Thrive assessed 05/30/24 05/30/24 11:07 Currently or been in a relationship where the following occur: No concerns reported HENMT Head: Yes normal to inspection, Yes normocephalic and Yes atraumatic Ears: external ears normal Eyes General: appearance normal, both eyes and all related structures Eyelids: Yes eyelids normal Conjunctivae: conjunctivae normal Neck Neck: Yes normal visual inspection and Yes supple Resp Effort & Inspection: normal respiratory effort Auscultation: clear to auscultation bilaterally Cardio Jugular venous distension: no JVD Rate: regular rate Rhythm: regular rhythm Heart sounds: S1 normal heart sound present and S2 normal heart sound present GI Inspection: Yes normal to inspection Palpation (GI): Soft to palpation and nontender Auscultation: normal bowel sounds Skin General skin exam: no rashes or lesions noted Neuro General: no focal motor deficits Extrem General: Yes full ROM Psych Appearance: grossly normal Office Procedures Flu Questionnaire Does the patient have a severe egg allergy?: No Immunizations Fluarix Triv [id number] (PF) 45 mcg (15 mcg x 3)/0.5 mL IM syringe Performing Provider: Tracy Milton MD [facility] Documented (not given) by: LIGIA Costa on 05/30/24 10:51 Reason Not Given: Patient Refused Coding Level of Care Code Est Pt Level 3 (83459) Est Pt Prev Care 40-64y(69802) Diagnoses Physical exam Z00.00 Chest pain R07.9 Hearing loss of right ear, unspecified hearing loss type H91.91 Hearing loss type: unspecified Laterality: right Major depressive disorder, recurrent episode, moderate with mood-congruent psychotic features F33.1 Additional Codes DUKE-7 Assessment Billing - DUKE-7 Assessment Tool: DUKE-7 Assessment 72958 ([id number]) Time Spent (min) 38 Assessment & Plan Assessment & Plan (1) Physical exam: Code(s): Z00.00 - Encounter for general adult medical examination without abnormal findings Category: Medical Plan: Repeat in a year. (2) Chest pain: Code(s): R07.9 - Chest pain, unspecified Category: Medical Plan: EKG ordered. (3) Hearing loss: Code(s): H91.90 - Unspecified hearing loss, unspecified ear Category: Medical Qualifiers: Hearing loss type: unspecified Laterality: right Qualified Code(s): H91.91 - Unspecified hearing loss, right ear Plan: Referred to ENT. Order hearing test. (4) Major depressive disorder, recurrent episode, moderate with mood-congruent psychotic features: Code(s): F33.1 - Major depressive disorder, recurrent, moderate Category: Medical Plan: Continue SSRIs. Follow-up with psychiatry. Orders: Orders Vitamin D 25-OH Total Today E55.9 - Vitamin D deficiency, unspecified IRON PROFILE Today D64.9 - Anemia, unspecified Vitamin B12 and Folate Today E53.8 - Deficiency of other specified B group vitamins Comprehensive [place]. 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
== END 2024-05-30 11:30 | disposition home or self-care (01) ==
PROVIDERS: PCP Internal Medicine; Visit Provider Internal Medicine
DX: Z00.00 Encounter for general adult medical examination without abnormal findings (principal); R07.9 Chest pain, unspecified; H91.91 Unspecified hearing loss, right ear; F33.1 Major depressive disorder, recurrent, moderate

== ENCOUNTER 2024-05-30 10:12 | Outpatient (REF) | payer OTHER, SELFPAY ==
[2024-06-01 16:23] LABS: HPV mRNA E6/E7 Not Detected (Not Detected)
== END 2024-05-30 10:13 | disposition home or self-care (01) ==
LOC: HO.LNP 10:12
PROVIDERS: Obstetrics & Gynecology; PCP Internal Medicine; Visit Provider Internal Medicine
DX: Z00.01 Encounter for general adult medical examination with abnormal findings (principal); R07.9 Chest pain, unspecified; H91.91 Unspecified hearing loss, right ear; F33.1 Major depressive disorder, recurrent, moderate; E55.9 Vitamin D deficiency, unspecified; D64.9 Anemia, unspecified; E53.8 Deficiency of other specified B group vitamins; E78.5 Hyperlipidemia, unspecified; Z28.21 Immunization not carried out because of patient refusal; Z12.4 Encounter for screening for malignant neoplasm of cervix; Z11.51 Encounter for screening for human papillomavirus (HPV); N85.2 Hypertrophy of uterus
CPT/HCPCS: 87624; 88175; 90471; 96127; 99212; 99386; 99396

== ENCOUNTER 2024-05-30 13:19 | Outpatient (AMB) | payer OTHER, SELFPAY ==
[2024-05-30 13:22] VITALS: BP 122/72; BMI 33.1
--- NOTE | 2024-05-30 13:22 | A.OFFVIS_ITS ---
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: Yes Brewery Cellar Worker Language: Turner Machine Operator Services: Brewery Cellar Worker Present (in person) Brewery Cellar Worker Name: Gretchen STRONG Information Interpreted: non-clinical & clinical Service Promoter Salesperson: Service Promoter Salesperson Present (Gretchen STRONG) Accompanied by: Self / Same As Patient Allergies Influenza Virus Vaccines Allergy (Severe, Verified 05/30/24 13:23) trouble breathing strawberry Allergy (Severe, Verified 05/30/24 13:23) Rash tree nut Allergy (Severe, Verified 05/30/24 13:23) Shortness of Breath ergocalciferol (vitamin D2) [From Vitamin D2] Allergy (Mild, Verified 05/30/24 13:23) Rash penicillin V Allergy (Mild, Verified 05/30/24 13:23) swelling meloxicam Adverse Reaction (Mild, Verified 05/30/24 13:23) Palpitations Post menopausal: Yes HPI Comments Details: Presenting for annual exam. No complaints. Last Pap/HPV was 40 years ago Last Mammogram was done in 04/25/2024, the results are still pending No previous screening Colonoscopy PFSH Medical History Angina at rest Helicobacter pylori (H. pylori) Screen for colon cancer Insomnia DUKE (generalized anxiety disorder) Major depressive disorder, recurrent episode, moderate with mood-congruent psychotic features Right shoulder pain Class 1 obesity with body mass index (BMI) of 33.0 to 33.9 in adult Ophthalmoplegic migraine Moderate asthma Dyslipidemia Surgical History History of esophagogastroduodenoscopy (EGD) History of ear surgery History of tubal ligation History of appendectomy Family History Mother Cancer Father Cancer Substance use disorder Other Right shoulder pain Social History Housing: Apartment Alcohol intake: never Comment: baseline Patient Tobacco Use Status: Never used Tobacco Tobacco use type: Cigarette e-Cigarette/Vaping Use: Never Used Second Hand Smoke Exposure: No service: No Current occupational status: unemployed Cognitive needs: Yes Hearing needs: No Vision needs: No Female Reproductive History Menstrual control method: permanent sterilization Date of Mammogram: 04/25/24 Review of Systems Const All systems reviewed & are unremarkable except as noted in HPI and below Card Reports as per HPI Resp Reports as per HPI GI Reports as per HPI and Reports no additional complaints Reports as per HPI Physical Exam Vital Signs: BMI result Body Mass Index 33.1 Const General: cooperative, healthy appearing and comfortable Chest Chest palpation & inspection: normal inspection of the chest and normal palpation of entire chest wall Breast/axilla inspection: normal inspection of the breasts and normal inspection of the axillae Breast/axilla palpation: normal palpation of the breasts, normal palpation of the axillae and no axillary lymphadenopathy Resp Effort & Inspection: normal respiratory effort Auscultation: clear to auscultation bilaterally Percussion: percussion normal Cardio Palpation: normal PMI Rate: regular rate Rhythm: regular rhythm Heart sounds: no murmurs and no rubs Peripheral pulses: Peripheral pulses 2+ throughout GI Inspection: Yes normal to inspection Palpation (GI): Soft to palpation, nontender, no guarding, not rigid and No hepatosplenomegaly present Percussion: Yes normal to percussion Auscultation: normal bowel sounds Rectal Exam - Female: deferred General: Yes bladder normal to palpation External Female Exam: No lesion Speculum Exam - Vagina: normal appearance of the vagina, normal palpation, normal vaginal discharge and not erythematous Speculum Exam - Cervix: normal appearance of the cervix and normal palpation Bimanual exam- vagina & uterus: normal bimanual exam, normal palpation, bladder normal to palpation, consistency normal, normal palpation and enlarged Bimanual Exam- Adnexa, other: normal adnexae, no masses and no tenderness Assessment & Plan Assessment & Plan (1) Well woman exam: Code(s): Z01.419 - Encounter for gynecological examination (general) (routine) without abnormal findings Category: Medical Plan: Co testing done. Counseled the patient about the recommended dietary allowance of 1200 mg of Calcium & 600 IU of vitamin D. Instructions given the patient to schedule next screening Mammogram in 05/03. The patient was referred to GI for screening colonoscopy . The patient was instructed to perform monthly self-breast exams and schedule annual exam in a year. All questions answered and the patient verbalized understanding. (2) Enlarged uterus: Code(s): N85.2 - Hypertrophy of uterus Category: Medical Plan: Discussed with the patient the finding on pelvic exam, enlarged uterus, pelvic ultrasound ordered. Instructions given the patient to schedule an ultrasound follow-up appointment within 2 weeks. All questions answered, the patient verbalized understanding. Orders: Orders US pelvic and transvaginal Today N85.2 - Hypertrophy of uterus Referrals Gastroenterology Referral Z12.11 - Encounter for screening for malignant neoplasm of colon Coding Level of Care Code New Pt Prev Care 40-64y(46238) Diagnoses Well woman exam Z01.419 Enlarged uterus N85.2
== END 2024-05-30 13:54 | disposition home or self-care (01) ==
LOC: HO.HWS 13:19
PROVIDERS: PCP Internal Medicine; Visit Provider Obstetrics & Gynecology
DX: Z01.419 Encounter for gynecological examination (general) (routine) without abnormal findings (principal); N85.2 Hypertrophy of uterus
CPT/HCPCS: 99386

== ENCOUNTER 2024-06-13 11:30 | Outpatient (AMB) | payer OTHER, SELFPAY ==
[2024-06-13 11:32] VITALS: BP 130/72; PULSE 67; O2SAT 96; BMI 33.2
--- NOTE | 2024-06-13 11:32 | A.OFFPC_ITS ---
Vital Signs 06/13/24 11:32 Height 5 ft 6 in Weight 205 lb 8 oz BMI 33.2 BP 130/72 Blood Pressure Location Lt brachial Position Sitting Pulse 67 Pulse Source Pulse Oximeter Pulse Oximetry (%) 96 Oxygen Delivery Method Room Air Intake Visit Reasons: breast exam of lump location needed Mergers And Acquisitions Manager Required: No Accompanied by: Self / Same As Patient Allergies Influenza Virus Vaccines Allergy (Severe, Verified 06/13/24 11:40) trouble breathing strawberry Allergy (Severe, Verified 06/13/24 11:40) Rash tree nut Allergy (Severe, Verified 06/13/24 11:40) Shortness of Breath ergocalciferol (vitamin D2) [From Vitamin D2] Allergy (Mild, Verified 06/13/24 11:40) Rash penicillin V Allergy (Mild, Verified 06/13/24 11:40) swelling meloxicam Adverse Reaction (Mild, Verified 06/13/24 11:40) Palpitations Medication List - Last Reconciled 06/13/24 by Tracy Milton MD acetaminophen ER 1,300 mg (2 x 650 mg) PO Q8H PRN 90 days albuterol sulfate 2.5 mg (3 mL) inhalation Q6H 30 days albuterol sulfate 90 mcg/actuation (ProAir HFA) 2 puffs inhalation Q6H PRN amitriptyline 50 mg PO BEDTIME bismuth subsalicylate 2 tabs PO QID 14 days bupropion HCl XL 150 mg PO QAM clonazepam 0.5 mg PO BID PRN 30 days diclofenac sodium 1% (Arthritis Pain (diclofenac)) 4 grams topical QID fluoxetine 20 mg PO DAILY fluticasone propionate 44 mcg/actuation (Flovent HFA) 2 puffs inhalation BID 30 days loratadine (Allergy Relief (loratadine)) 10 mg PO DAILY 90 days metoclopramide HCl (Reglan) 5 mg PO QIDACHS nitroglycerin 0.3 mg sublingual Q5M PRN 30 days olopatadine 0.2% (Pataday Once Daily Relief) 1 drp ophthalmic (eye) DAILY PRN 30 days ondansetron 4 mg PO Q8H PRN pantoprazole 40 mg PO DAILY rabeprazole 20 mg PO BID 2 weeks risperidone 2 mg PO BEDTIME sucralfate (Carafate) 10 mL PO BEDTIME tiotropium bromide 2.5 mcg/actuation (Spiriva Respimat) 2 puffs inhalation DAILY topiramate 50 mg PO DAILY 90 days trazodone 100 mg PO BEDTIME Tobacco use date assessed: 06/13/24 Dental Screening Dental Screen Date: 06/13/24 Did you have a dental visit in the last 12 months?: Yes Did you have a dental problem in the last 6 months where you did not have access to dental care?: No Was dental information given to patient?: Patient has dentist HPI HPI Comments History of Present Illness Details This is a 64-year-old female with moderate major depression, anxiety and asthma that comes today complaining of a left breast mass that has been present for over 3 months that is tender to palpation at 02:00 o'clock. Will be ordering a diagnostic mammogram and ultrasound of the left breast. She denies any nipple retraction or discharge. Mother had breast cancer in her 50s. Depression with anxiety stable with medications and this is follow by Psychiatry. She use rescue inhaler as needed for her asthma. [facility] Medical History (Updated 06/13/24 @ 12:09 by Tracy Milton MD) Angina at rest Helicobacter pylori (H. pylori) Screen for colon cancer Insomnia DUKE (generalized anxiety disorder) Major depressive disorder, recurrent episode, moderate with mood-congruent psychotic features Right shoulder pain Class 1 obesity with body mass index (BMI) of 33.0 to 33.9 in adult Ophthalmoplegic migraine Moderate asthma Dyslipidemia Surgical History History of esophagogastroduodenoscopy (EGD) History of ear surgery History of tubal ligation History of appendectomy Family History Mother Cancer Father Cancer Substance use disorder Other Right shoulder pain Social History Housing: Apartment Alcohol intake: never Comment: baseline Patient Tobacco Use Status: Never used Tobacco Tobacco use type: Cigarette e-Cigarette/Vaping Use: Never Used Second Hand Smoke Exposure: No service: No Current occupational status: unemployed Cognitive needs: Yes Hearing needs: No Vision needs: No Questionnaire PHQ-9 Over the last 2 weeks, how often have you been bothered by any of the following problems? 1. Little interest or pleasure in doing things: not at all 2. Feeling down, depressed, or hopeless: not at all 3. Trouble falling or staying asleep, or sleeping too much: not at all 4. Feeling tired or having little energy: several days 5. Poor appetite or overeating: not at all 6. Feeling bad about yourself - or that you are a failure or have let yourself or your family down: not at all 7. Trouble concentrating on things, such as reading the newspaper or watching television: not at all 8. Moving or speaking so slowly that other people could have noticed. Or the opposite - being so fidgety or restless that you have been moving around a lot more than usual: not at all 9. Thoughts that you would be better off or of hurting yourself in some way: not at all Total score: 1 Depression Screening Interpretation: Positive Depression Screening Follow-up: Existing condition, In treatment, Community Mental Health Worker F/U and Follow- up Visit Requested Depression Screening Done: Yes 78099 - PHQ-9 Billing: Yes Source: Developed by Drs. Mario Tran, Chanell Rosas, Perfecto Alas and colleagues, with an educational donny from [employer]. Thrive Questionnaire Date Thrive assessed: 06/13/24 I am a: Patient What is your living situation today?: I have a steady place to live Within the past 12 months, did the food you bought not last and you didn't have the money to get more?: Never true Within the past 12 months, did you worry whether your food would run out before you got money to buy more?: Never true Do you have trouble paying for medicines?: No Do you have trouble getting transportation to medical appointments?: No Do you have trouble paying your heating and electricity bill?: No Do you have trouble taking care of your child, family member or friend?: No Do you have trouble with day-to-day activities such as bathing, preparing meals, shopping, managing finances, etc.?: No Are you currently unemployed and looking for a job?: No Are you interested in more education?: No Please select the resources that you would like help with: None Currently or been in a relationship where the following occur: No concerns reported THRIVE Score: 0 AUDIT C Alcohol Use Questionnaire (AUDIT-C) 1. How often do you have a drink containing alcohol?: Never Total Score: 0 DUKE-7 AMB Questionnaire DUKE-7 Date DUKE - 7 assessed: 06/13/24 Feeling nervous, anxious, or on edge: 1 = Several days Not being able to stop or control worryin = Not at all Worrying too much about different things: 1 = Several days Trouble relaxin = Not at all Being so restless that it is hard to sit still: 0 = Not at all Becoming easily annoyed or irritable: 0 = Not at all Feeling afraid as if something awful might happen: 1 = Several days Total DUKE-7 score (0-4 normal; 5-9 mild; 10-14 moderate; 15-21 severe): 3 Source: Developed by Drs. Mario Tran, Chanell Rosas, Perfecto Alas and colleagues, with an educational donny from [employer]. DUKE-7 Assessment Billing DUKE-7 Assessment Tool: DUKE-7 Assessment 30286 Review of Systems Const All systems reviewed & are unremarkable except as noted in HPI and below Card Denies chest pain at rest, Denies chest pain with activity, Denies edema, Denies irregular heart rhythm, Denies claudication, Denies dyspnea, Denies dyspnea on exertion, Denies orthopnea, Denies paroxysmal nocturnal dyspnea and Denies slow heart rate Resp Denies cough, Denies dyspnea and Denies dyspnea on exertion GI Denies abdominal pain, Denies change in bowel habits, Denies excessive flatus, Denies nausea and Denies vomiting Skin/Breast Reports breast pain and Reports breast mass Physical exam (Primary Care) Vital Signs: Last Vital Signs Pulse 67 06/13/24 11:32 BP 130/72 06/13/24 11:32 Pulse Ox 96 06/13/24 11:32 Oxygen Delivery Method Room Air 06/13/24 11:32 BMI result Body Mass Index 33.2 BMI Assessment/Plan discussion: High BMI High, discussed plan: lifestyle, weight reduction, dietary and physical activity Tobacco/Smoking Status: Tobacco use Status Tobacco use date assessed 06/13/24 06/13/24 11:37 Patient Tobacco Use Status Never used Tobacco 06/13/24 11:37 Tobacco use type Cigarette 06/13/24 11:37 e-Cigarette/Vaping Use Never Used 06/13/24 11:37 PHQ-9: PHQ-9 Score PHQ-9: Total score 1 06/13/24 11:37 Depression Screening Interpretation: Positive Depression Screening Follow-up: Existing condition, In treatment, Community Mental Health Worker F/U and Follow- up Visit Requested Thrive Assessment: Date of Thrive Assessment Date Thrive assessed 06/13/24 06/13/24 11:37 Currently or been in a relationship where the following occur: No concerns reported Chest Breast/axilla inspection: normal inspection of the breasts and normal inspection of the axillae Breast/axilla palpation: normal palpation of the axillae and abnormal palpation of the breast (left breast tender mass at 2 o'clock) Resp Effort & Inspection: normal respiratory effort Auscultation: clear to auscultation bilaterally Cardio Jugular venous distension: no JVD Rate: regular rate Rhythm: regular rhythm Heart sounds: S1 normal heart sound present and S2 normal heart sound present Extrem General: Yes full ROM Coding Level of Care Code Est Pt Level 4 (47659) Complex EM visit Add On G2211 Diagnoses Mass of upper outer quadrant of left breast N63.21 Breast mass location: upper outer quadrant Moderate persistent asthma without complication J45.40 Asthma severity: moderate Asthma persistence: persistent Asthma complication type: uncomplicated Major depressive disorder, recurrent episode, moderate with mood-congruent psychotic features F33.1 DUKE (generalized anxiety disorder) F41.1 Additional Codes DUKE-7 Assessment Billing - DUKE-7 Assessment Tool: DUKE-7 Assessment 13641 ([id number]) Time Spent (min) 23 Assessment & Plan Assessment & Plan (1) Left breast mass: Code(s): N63.20 - Unspecified lump in the left breast, unspecified quadrant Category: Medical Qualifiers: Breast mass location: upper outer quadrant Qualified Code(s): N63.21 - Unspecified lump in the left breast, upper outer quadrant Plan: Diagnostic mammogram and ultrasound of the left breast ordered. (2) Asthma: Code(s): J45.909 - Unspecified asthma, uncomplicated Category: Medical Qualifiers: Asthma severity: moderate Asthma persistence: persistent Asthma complication type: uncomplicated Qualified Code(s): J45.40 - Moderate persistent asthma, uncomplicated Plan: Use rescue inhaler as needed. (3) Major depressive disorder, recurrent episode, moderate with mood-congruent psychotic features: Code(s): F33.1 - Major depressive disorder, recurrent, moderate Category: Medical Plan: Continue bupropion. Follow-up with psychiatry. (4) DUKE (generalized anxiety disorder): Code(s): F41.1 - Generalized anxiety disorder Category: Medical Plan: Continue clonazepam as needed. Follow-up with psychiatry Orders: Orders MM diagnostic mammo BI Today N63.20 - Unspecified lump in the left breast, unspecified quadrant US breast LT complete Today N63.20 - Unspecified lump in the left breast, unspecified quadrant
== END 2024-06-13 11:47 | disposition home or self-care (01) ==
PROVIDERS: PCP Internal Medicine; Visit Provider Internal Medicine
DX: N63.21 Unspecified lump in the left breast, upper outer quadrant (principal); J45.40 Moderate persistent asthma, uncomplicated; F33.1 Major depressive disorder, recurrent, moderate; F41.1 Generalized anxiety disorder; Z23 Encounter for immunization

== ENCOUNTER → 2024-06-13 11:31 | Outpatient (BNVA) | payer OTHER, SELFPAY | PROVIDERS: PCP Internal Medicine; Visit Provider Internal Medicine | DX: N63.21 Unspecified lump in the left breast, upper outer quadrant (principal); J45.40 Moderate persistent asthma, uncomplicated; F33.1 Major depressive disorder, recurrent, moderate; F41.1 Generalized anxiety disorder | CPT/HCPCS: 90471; 96127; 99212 ==

== ENCOUNTER 2024-06-14 13:21 | Outpatient (REF) | payer OTHER, SELFPAY ==
--- NOTE | ~2024-06-14 | MM_ITS ---
EXAMINATION: MM DIAGNOSTIC DIGITAL BREAST TOMOSYNTHESIS, BILATERAL US BREAST LIMITED, BILATERAL CLINICAL INFORMATION: Diagnostic exam; 64 year old female complaining of diffuse bilateral breast pain, constant. Also, order states 2:00 palpable abnormality left breast, although patient colung[place] the 5:00 axis left breast at site of palpable concern. (Patient had previous workup 03/13/2022 of 2:00 axis left breast lump which showed no specific correlate or abnormality). Patient also complaining of diffuse bilateral breast pain although states numerous medially right breast and laterally left breast. COMPARISON: MAMMOGRAPHY: 03/13/2022, 01/09/2020, 09/06/2018, and 12/04/2015. ULTRASOUND: Left breast 03/13/2022 TECHNIQUE: Digital breast tomosynthesis is performed in both the craniocaudal and mediolateral oblique views along with computer-aided detection (CAD). Synthesized 2D images are generated from the tomosynthesis. In addition, added bilateral full field 3-D MLO views were obtained. FINDINGS: There are scattered areas of fibroglandular density (ACR BI-RADS breast composition Category b). There are no suspicious masses, suspicious grouped calcifications, or areas of architectural distortion in either breast. The parenchymal pattern is stable from prior exams. There is no skin or axillary abnormality. No mammographic abnormality to explain bilateral diffuse breast pain, and no mammographic abnormality at the 2:00 or 5:00 axis left breast to correlate with a reported palpable focus of concern. ULTRASOUND: CLINICAL INFORMATION: As above. COMPARISON: None TECHNIQUE: Targeted sonographic evaluation was performed using a high frequency linear transducer. Attention was given to the left breast at the 2:00 and 5:00 axes in the purported regions of palpable concern. Attention was also given to both breasts in the regions of bilateral breast pain (2:00 to 6:00 bilateral). Selected archived documentation. FINDINGS: RIGHT BREAST: There is a mixture of fatty and fibroglandular tissue. No suspicious mass is seen. There is no pathologic acoustic shadowing. No cystic abnormality. LEFT BREAST: There is a mixture of fatty and fibroglandular tissue. There is a lipomatous nodule at the 5:00 axis, 4 cm from the nipple, measuring 2.1 x 1.4 x 1.3 cm, benign. No suspicious mass is seen. There is no pathologic acoustic shadowing. No cystic abnormality. -There is no correlate sonographic correlate to the regions of breast pain (2:00 to 6:00 bilaterally). MM/MM tomosynthesis diagnostic BI IMPRESSION: -There are no findings suspicious for malignancy in either breast. -There is no correlate on mammography or sonography for bilateral breast pain left breast laterally and right breast medially. -Lipomatous nodule measuring 2.1 cm present in the 5:00 axis left breast, benign, correlating with the left breast palpable focus. No further follow-up recommended. 2:00 axis shows no abnormality or correlate. -Recommend clinical management, otherwise, recommend the patient resume routine annual screening. OVERALL ASSESSMENT: Mammography: BI-RADS 2 - Benign Findings Ultrasound: BI-RADS 2 - Benign Findings RECOMMENDATION: 1. Patient should be managed based on the clinical impression. 2. Otherwise, routine annual screening mammography. This patient's information was entered into a reminder system with a target due date for their next mammogram. Electronically signed by: Micky Kenyon MD 06/14/2024 02:53 PM [facility]
== END 2024-06-14 13:22 | disposition home or self-care (01) ==
LOC: HO.MAMMO 13:21
PROVIDERS: PCP Internal Medicine; Visit Provider Internal Medicine
DX: N63.20 Unspecified lump in the left breast, unspecified quadrant (principal); N64.4 Mastodynia
CPT/HCPCS: 76642; 77062; 77066

== ENCOUNTER → 2024-06-14 14:30 | Outpatient (BNV) | payer OTHER, SELFPAY | PROVIDERS: PCP Internal Medicine; Visit Provider Radiology Diagnostic Radiology | DX: N64.4 Mastodynia (principal) | CPT/HCPCS: 76642; 77062; 77066 ==

== ENCOUNTER 2024-10-26 12:55 | Outpatient (REF) | payer OTHER, SELFPAY ==
--- NOTE | ~2024-10-26 | US_ITS ---
EXAMINATION: US PELVIS CLINICAL INFORMATION: Hypertrophy of uterus. COMPARISON: None available. TECHNIQUE: Ultrasound of the pelvis is performed using both transabdominal and transvaginal transducers along with Doppler. Transvaginal imaging is performed due to inadequate visualization transabdominally. FINDINGS: Uterus: The uterus is anteverted, anteflexed and measures 6.2 x 3.4 x 4.2 cm. The double wall endometrial thickness is 5.0 mm. There are 2 small endometrial polyps measuring 0.5 x 0.4 x 0.5 cm and 0.6 x 0.6 x 1.2 cm. Incidental finding of nabothian cysts in cervix. The uterus is smooth in contour and has normal myometrial echogenicity. No visible fibroid. Adnexa: Both ovaries are are not visualized. There is no free fluid in the cul-de-sac. US/US pelvic and transvaginal IMPRESSION: Small nabothian cysts in the cervix. 2 small endometrial polyps. Ovaries are not seen. Electronically signed by: David Wheeler MD 10/26/2024 03:51 PM EDT
--- OUTSIDE RECORDS SUMMARY | 2024-10-26 15:18 | XMS_ITS | Encounter Summary ---
Author Organization [employer] Address [address] [facility] [address] [place] [address] Care Team Providers Care Waxing Machine Operator Name Role Phone Unavailable Primary Care Provider Unavailabl e Encounter Details Date Type Department Care Team (Late st Contact Info) Description 06/09/2023 Telephone [facility] ADULT DENTAL [address] [place] [address] Fartun Delgado DDS [address] [place] [address] Social History Tobacco Use Types Packs/Day Years Used Date Smoking Tobacco: Never Assessed Comments Unknown Sex and Gender Information Value Date Recorded Sex Assigned at Female 06/08/2022 10:39 AM EDT Legal Sex Female 10:39 AM EDT Gender Identity Female 06/08/2022 10:39 AM EDT Sexual Orientation Straight 06/08/2022 10 :39 AM EDT documented as of this encounter Miscellaneous Notes * Telephone Encounter - Fartun Delgado DDS - 06/11/2023 3:36 PM EDT PA re-submitted with insurance. * Telephone Encounter - Sena Vera - 06/09/2023 9:25 AM EDT Patient called to find out status of authorization for dentures that should have been send in december her notes. She states that her dentures are breaking. Her bottom denture is way to big. She is experiencing some pain in her gums. She would like a call back to update her on status of PA. documented in this encounter Plan of Treatment Not on file documented as of this encounter Visit Diagnoses Not on filedocumented in this encounter
--- OUTSIDE RECORDS SUMMARY | 2024-10-26 15:18 | XMS_ITS | Encounter Summary ---
Author Organization [employer] [facility] Address [address] [facility] [address] [place] [address] Care Team Providers Care Nanoscience Technician Name Role Phone Unavailable Primary Care Provider Unavailabl e Reason for Visit * Reason Onset Date Comments medication 06/19/2024 Encounter Details Date Type Department Care Team ([facility] st Contact Info) Description 06/19/2024 Telephone [facility] ADULT D[facility]AL [address] [place] [address] Simone Muniz, DMD [address] [place] [address] medication Social History Tobacco Use Types Packs/Day Years Used Date Smoking Tobacco: Former Cigarettes Passive Smoke Exposure: Past Smokeless Tobacco: Former Alcohol Use Standard Drinks/Week Comments Never 0 (1 standard drink = 0.6 oz pur e alcohol) Comments Unknown Sex and Gender Information Value Date Recorded Sex Assigned at Female 06/08/2022 10:39 AM EDT Legal Sex Female 10:39 AM EDT Gender Identity Female 06/08/2022 10:39 AM EDT Sexual Orientation Straight 06/08/2022 10 :39 AM EDT documented as of this encounter Miscellaneous Notes * Telephone Encounter - Sena Vera - 06/22/2024 8:42 AM EST Message for Dr. Muniz Patient came in on 06/15 and 06/16 and message sent on 06/19 that she is waiting for medication to be sent to pharmacy due to pain. * Telephone Encounter - Delphine Brwester - 06/19/2024 11:14 AM EST Patient called about medication never was send out can we help her documented in this encounter Plan of Treatment Not on file documented as of this encounter Visit Diagnoses Not on filedocumented in this encounter
--- OUTSIDE RECORDS SUMMARY | 2024-10-26 15:18 | XMS_ITS | Clinical Summary ---
Author Organization [facility] [facility] Address [address] [facility] [address] [place] [address] Care Team Providers Care Deputy Administrator Name Role Phone Unavailable Primary Care Provider Unavailabl e Allergies Active Allergy Reactions Criticality Noted Date Comments Cephalosporins 07/20/2011 Other reaction(s): Unknown Multivitamins Hives,Swelling High 03/21/2012 Penicillins Swelling High 07/20/2011 Other reaction(s): Unknown Full body swelling Medications acetaminophen (Tylenol 8 Hour) 650 MG ER tablet TAKE 2 TABLETS BY MOUTH EVERY 8 HOURS NEEDED FOR PAIN OR FEVER 08/14/19 24 Active albuterol (2.5 MG/3ML) 0.083% nebulizer solution INHALE 1 VIAL VIA NEBULIZER EVERY 6 HOURS FOR 30 DAYS 09/24/19 24 Active Ventolin HFA 108 (90 Base) MCG/ACT inhaler 2 PUFFS INHALED EVERY 6 HOURS NEEDED FOR BRONCHOSPASM Active amitriptyline (Elavil) 50 MG tablet TAKE 1 TABLET BY MOUTH AT BEDTIME *DOSE INCREASE 09/18/19 24 Active clonazePAM (KlonoPIN) 0.5 MG tablet TAKE 1 TABLET BY MOUTH THREE TIMES A DAY NEEDED *INCREASE IN FREQUENCY 09/30/19 24 Active diazePAM (Valium) 5 MG tablet TAKE 1 TABLET BY MOUTH NEEDED FOR CLAUSTROPHOBIA TAKE ONE HOUR PRIOR TO MRI Active FLUoxetine (PROzac) 20 MG capsule TAKE 1 CAPSULE BY MOUTH EVERY MORNING WITH FLUOXETINE 40 MG FOR A TOTAL OF 60 MG BY MOUTH DAILY Active metoclopramide (Reglan) 5 MG tablet TAKE 1 TABLET BY MOUTH FOUR TIMES A DAY BEFORE MEALS/BEDTIME 08/13/19 24 Active ondansetron ODT (Zofran-ODT) 4 MG disintegrating tablet 10/13/19 24 Active pantoprazole (ProtoNix) 40 MG EC tablet TAKE 1 TABLET BY MOUTH DAILY HALF AN HOUR BEFORE BREAKFAST 09/18/19 24 Active risperiDONE (RisperDAL) 2 MG tablet Take 2 mg by mouth at bedtime. 09/20/19 24 Active Senna-Time 8.6 MG tablet TAKE 2 TABLETS BY MOUTH EVERY DAY AT BEDTIME FOR CONSTIPATION Active traZODone (Desyrel) 100 MG tablet TAKE 3 TABLETS ORALLY AT BEDTIME FOR 90 DAYS Active topiramate 50 MG tablet Take 1 tablet by mouth in the morning. 07/23/20 23 Active chlorhexidine (Peridex) 0.12 % solution SWISH AND SPIT 15MLS BY MOUTH IN THE MORNING, NOON, AND AT BEDTIME FOR UP TO 5 DAYS IF NEEDED 473 mL 03/06/20 24 Active Active Problems No known active problems Immunizations Name Administration Dates Next Due Hep A / Hep B 11/14/2021 Social History Tobacco Use Types Packs/Day Years Used Date Smoking Tobacco: Former Cigarettes Passive Smoke Exposure: Past Smokeless Tobacco: Former Tobacco Cessation:Counseling Given: Not Answered Alcohol Use Standard Drinks/Week Comments Never 0 (1 standard drink = 0.6 oz pur e alcohol) Comments Unknown Sex and Gender Information Value Date Recorded Sex Assigned at Female 06/08/2022 10:39 AM EDT Legal Sex Female 10:39 AM EDT Gender Identity Female 06/08/2022 10:39 AM EDT Sexual Orientation Straight 06/08/2022 10 :39 AM EDT Last Filed Vital Signs Vital Sign Reading Time Taken Comments Blood Pressure 110/56 12/13/2023 10:28 AM EDT Pulse 70 10/15/2023 2:22 PM EST Temperature - - Respiratory Rate - - Oxygen Saturation - - Inhaled Oxygen Concentration - - Weight - - Height - - Body Mass Index - - Plan of Treatment Health Maintenance Due Date Last Done Comments CT Colonography 1961 Colonoscopy 1961 Colorectal Cancer Screening 1961 Dental Oral Exam 1961 Dental Prophylaxis 1961 Dental X-Ray: Bitewings 1961 Dental X-Ray: Full Mouth 1961 Depression Screening 1961 FIT DNA/Cologuard 1961 FIT 1961 FOBT 1961 HIV Screening 1961 SDOH Screening 1961 Sigmoidoscopy 1961 Alcohol/Substance Use Screening 1973 Hepatitis C Screening 1979 DTaP/Tdap/Td Vaccines (1 - Tdap) 1980 Pneumococcal Vaccine: 50+ Years (1 of 2 - PCV) 1980 Pap Smear 1982 Cervical Cancer Screening 1991 HPV/Cotest 1991 Mammogram 2001 Zoster Vaccines (1 of 2) 2011 RSV Patients and Patients Aged 60 years or older (1 - Risk 60-74 years 1-dose series) 2021 Hepatitis B Vaccines (2 of 3 - Hep B Twinrix 3-dose series) 12/12/2021 11/14/2021 COVID-19 Vaccine (3 - 2023-2 5 season) 2024 04/23/2021, 02/08/2021 Influenza Vaccine (#1) 2024 Tobacco Screening 06/16/2025 06/16/2024 Hepatitis A Vaccines Aged Out 11/14/2021 No long er eligible based on patient's age to complete this topic HIB Vaccines Aged Out No longer eligi ble based on patient's age to complete this topic HPV Vaccines Aged Out No longer eligi ble based on patient's age to complete this topic IPV Vaccines Aged Out No longer eligi ble based on patient's age to complete this topic Meningococcal Vaccine Aged Out No williams hanna eligible based on patient's age to complete this topic RSV under 20 months Aged Out No longe r eligible based on patient's age to complete this topic Rotavirus Vaccines Aged Out No longer eligible based on patient's age to complete this topic Insurance [facility] ADULT # [address] [id number] # [address] [id number]
--- OUTSIDE RECORDS SUMMARY | 2024-10-26 15:18 | XMS_ITS | Encounter Summary ---
Author Organization [employer] Address [address] [facility] [address] [place] [address] Care Team Providers Care Retread Operator Name Role Phone Unavailable Primary Care Provider Unavailabl e Reason for Visit * Reason Onset Date Comments Med Refill medication 03/05/2024 Encounter Details Date Type Department Care Team ([facility] st Contact Info) Description 03/05/2024 Refill [facility] ADULT DENTAL [address] [place] [address] Simone Muniz DMD [address] [place] [address] Social History Tobacco Use Types Packs/Day Years [...] encounter Miscellaneous Notes * Telephone Encounter - Simone Muniz DMD - 03/06/2024 1:14 PM EDT I believe the pain caused by her dentures. Inform pt to remove the denture for few days at home andkeep on using the Peridex. Pt will come back for reline in April * Telephone Encounter - Sena Vera - 03/06/2024 1:07 PM EDT Patient states that she has been taking tylenol and it is not helping with the pain. Patient was informed that the peridex was sent but she is requesting for something stronger for pain be sent as well. DR * Telephone Encounter - Simone Muniz DMD - 03/06/2024 8:01 AM EDT Approving, but needs appt for additional refills. documented in this encounter Plan of Treatment Not on file documented as of this encounter Visit Diagnoses Not on filedocumented in this encounter
--- OUTSIDE RECORDS SUMMARY | 2024-10-26 15:18 | XMS_ITS | Encounter Summary ---
Author Organization [facility] Address [address] [facility] 7t [place] [address] Care Team Providers Care Piano Machine Operator Name Role Phone Unavailable Primary Care Provider Unavailabl e Reason for Visit * Reason Onset Date Comments upper denture insurance 05/11/2023 Encounter Details Date Type Department Care Team (Late st Contact Info) Description 05/11/2023 Telephone [facility] ADULT DENTAL [address] [place] [address] Fartun Delgado, DDS [address] [place], [place] [phone] upper denture insurance Social History Tobacco Use Types Packs/Day Years Used Date Smoking Tobacco: Never Assessed Comments Unknown Sex and Gender Information Value Date Recorded Sex Assigned at Female 06/08/2022 10:39 AM EDT Legal Sex Female 10:39 AM EDT Gender Identity Female 06/08/2022 10:39 AM EDT Sexual Orientation Straight 06/08/2022 10 :39 AM EDT documented as of this encounter Miscellaneous Notes * Telephone Encounter - Snea Vera - 05/11/2023 2:38 PM EDT Patient called in because her upper denture is so wasted and is looking for PA to be submitted about how it is unable to be used. She stated they never fit well and became so wasted that she is having pain, she cant eat with them, and they are completely ground down. I did informpatient if she is having that much pain she can contact the office in the morning to be seen as an emergency but she stated that submitting to the insurance is something she believed was being taken care of. documented in this encounter Plan of Treatment Not on file documented as of this encounter Visit Diagnoses Not on filedocumented in this encounter
== END 2024-10-26 12:56 | disposition home or self-care (01) ==
LOC: HO.US 12:55
PROVIDERS: PCP Internal Medicine; Visit Provider Obstetrics & Gynecology
DX: N85.2 Hypertrophy of uterus (principal)
CPT/HCPCS: 76830; 76856

== ENCOUNTER → 2024-10-26 12:57 | Outpatient (BNV) | payer OTHER, SELFPAY | PROVIDERS: PCP Internal Medicine; Visit Provider Radiology Diagnostic Radiology | DX: N84.1 Polyp of cervix uteri (principal); N85.2 Hypertrophy of uterus | CPT/HCPCS: 76830; 76856 ==

== ENCOUNTER 2024-10-31 10:04 | Outpatient (AMB) | payer OTHER, SELFPAY ==
--- NOTE | 2024-10-31 10:09 | A.OFFVIS_ITS ---
Intake Visit Reasons: pre op Putty Mixer Required: Yes Putty Mixer Language: Hydraulic Dredge Operator Services: Putty Mixer Present (in person) Putty Mixer Name: G[facility]chen [facility] Pric[facility] Consultant: Healthcare Network Pricing Consultant Present Accompanied by: Self / Same As Patient Allergies Influenza Virus Vaccines Allergy (Severe, Verified 10/31/24 10:10) trouble breathing strawberry Allergy (Severe, Verified 10/31/24 10:10) Rash tree nut Allergy (Severe, Verified 10/31/24 10:10) Shortness of Breath ergocalciferol (vitamin D2) [From Vitamin D2] Allergy (Mild, Verified 10/31/24 10:10) Rash penicillin V Allergy (Mild, Verified 10/31/24 10:10) swelling meloxicam Adverse Reaction (Mild, Verified 10/31/24 10:10) Palpitations Is last menstrual period known: Yes Last menstrual period: 06/06/20 Post menopausal: No Patient : No Do you need a note to return to daycare/school/sports/work: Yes (for surgery on wednesday) HPI Comments Details: Presenting for ultrasound follow-up done recently which showed the following: Uterus: The uterus is anteverted, anteflexed and measures 6.2 x 3.4 x 4.2 cm. The double wall endometrial thickness is 5.0 mm. There are 2 small endometrial polyps measuring 0.5 x 0.4 x 0.5 cm and 0.6 x 0.6 x 1.2 cm. Incidental finding of nabothian cysts in cervix. The uterus is smooth in contour and has normal myometrial echogenicity. No visible fibroid. Adnexa: Both ovaries are are not visualized. There is no free fluid in the cul-de-sac. No h/o vaginal bleeding PFSH Medical History Angina at rest Helicobacter pylori (H. pylori) Screen for colon cancer Insomnia DUKE (generalized anxiety disorder) Major depressive disorder, recurrent episode, moderate with mood-congruent psychotic features Right shoulder pain Class 1 obesity with body mass index (BMI) of 33.0 to 33.9 in adult Ophthalmoplegic migraine Moderate asthma Dyslipidemia Surgical History History of esophagogastroduodenoscopy (EGD) History of ear surgery History of tubal ligation History of appendectomy Family History Mother Cancer Father Cancer Substance use disorder Other Right shoulder pain Social History Housing: Apartment Alcohol intake: never Comment: baseline Patient Tobacco Use Status: Never used Tobacco Tobacco use type: Cigarette e-Cigarette/Vaping Use: Never Used Second Hand Smoke Exposure: No Patient : No service: No Current occupational status: unemployed Cognitive needs: Yes Hearing needs: No Vision needs: No Female Reproductive History Menstrual Date of last menstrual period: 06/06/20 Total pregnancies: 2 Full term: 2 Review of Systems Card Reports as per HPI and Reports no additional complaints Resp Reports as per HPI and Reports no additional complaints GI Reports as per HPI and Reports no additional complaints Reports as per HPI Physical Exam Const General: cooperative, healthy appearing and comfortable Resp Effort & Inspection: normal respiratory effort Auscultation: clear to auscultation bilaterally Percussion: percussion normal Cardio Palpation: normal PMI Rate: regular rate Rhythm: regular rhythm Heart sounds: no murmurs and no rubs Peripheral pulses: Peripheral pulses 2+ throughout GI Inspection: Yes normal to inspection Palpation (GI): Soft to palpation, nontender, no guarding, not rigid and No hepatosplenomegaly present Percussion: Yes normal to percussion Auscultation: normal bowel sounds Rectal Exam - Female: deferred Assessment & Plan Assessment & Plan (1) Endometrial polyp: Code(s): N84.0 - Polyp of corpus uteri Category: Medical Plan: Discussed with the patient the finding on ultrasound showing 2 endometrial polyp, recommended hysteroscopy D&C possible polypectomy/myomectomy. Discussed with the patient the procedure , all benefits and risks including but not limited to inability to complete the procedure , insufficient endometrial tissue for a complete evaluation of the endometrial cavity , bleeding, infection, possible need for blood transfusion with all its risk ( HIV,syphilis, Hepatitis, anaphylaxis shock, others..), injury to bladder, rectum, possible need for laparoscopy/laparotomy or hysterectomy. The patient verbalized understanding and signed the consent. Instructions given the patient to stay NPO after midnight the day prior to the procedure and to take only the specific medication (s) discussed the morning of the surgical procedure and to schedule a 2 week postoperative appointment Coding Level of Care Code Est Pt Level 3 (84234) Diagnoses Endometrial polyp N84.0
--- OUTSIDE RECORDS SUMMARY | 2024-10-31 11:53 | XMS_ITS | Encounter Summary ---
Author Organization [employer] Address [address] [facility] 7[address] [place] [address] Care Team Providers Care Tie Up Worker Name Role Phone Unavailable Primary Care Provider Unavailabl e Encounter Details Date Type Department Care Team (Late st Contact Info) Description 06/09/2023 Telephone [facility] ADULT DENTAL [address] [place] [address] Fartun Delgado DDS [address] [place] [address] Social History Tobacco Use Types Packs/Day Years [...] documented in this encounter Plan of Treatment Upcoming Encounters Date Type Department Care Team (Late st Contact Info) Description 11/16/2024 3:00 PM EDT Office Visit [facility] ADULT DENTAL [address] [place] [address] Simone Muniz, DMD [address] [place] [address] documented as of this encounter Visit Diagnoses Not on filedocumented in this encounter
--- OUTSIDE RECORDS SUMMARY | 2024-10-31 11:53 | XMS_ITS | Encounter Summary ---
Author Organization [employer] Address [address] [facility] 7t [place] [address] Care Team Providers Care Book Store Associate Name Role Phone Unavailable Primary Care Provider Unavailabl e Reason for Visit * Reason Onset Date Comments Med Refill medication 03/05/2024 Encounter Details Date Type Department Care Team ([facility] st Contact Info) Description 03/05/2024 Refill [facility] ADULT DENTAL [address] [place] [address] Simone Muniz DMD [address] [place] [address] Social History Tobacco Use Types Packs/Day Years [...] stronger for pain be sent as well. * Telephone Encounter - Simone Muniz DMD - 03/06/2024 8:01 AM EDT Approving, but needs appt for additional refills. documented in this encounter Plan of Treatment Upcoming Encounters Date Type Department Care Team (Late st Contact Info) Description 11/16/2024 3:00 PM EDT Office Visit [facility] ADULT DENTAL [address] [place] [address] Simone Muniz DMD [address] [place] [address] documented as of this encounter Visit Diagnoses Not on filedocumented in this encounter
--- OUTSIDE RECORDS SUMMARY | 2024-10-31 11:53 | XMS_ITS | Encounter Summary ---
Author Organization [facility] Address [address] [facility] 7[address] [place] [address] Care Team Providers Care Commodity Buyer Name Role Phone Unavailable Primary Care Provider Unavailabl e Reason for Visit * Reason Onset Date Comments medication 06/19/2024 Encounter Details Date Type Department Care Team ([facility] st Contact Info) Description 06/19/2024 Telephone [facility] ADULT DENTAL [address] [place] [address] Simone Muniz, DMD [address] [place] [address] medication Social History Tobacco Use Types Packs/Day [...] to pain. * Telephone Encounter - Delphine Brewster - 06/19/2024 11:14 AM EST Patient called about medication never was send out can we help her documented in this encounter Plan of Treatment Upcoming Encounters Date Type Department Care Team (Late st Contact Info) Description 11/16/2024 3:00 PM EDT Office Visit [facility] ADULT DENTAL [address] [place] [address] Simone Muniz, DMD [address] [place] [address] documented as of this encounter Visit Diagnoses Not on filedocumented in this encounter
--- OUTSIDE RECORDS SUMMARY | 2024-10-31 11:53 | XMS_ITS | Encounter Summary ---
Author Organization [facility] Address [address] [facility] [address] [place] [address] Care Team Providers Care Hammer Smith Name Role Phone Unavailable Primary Care Provider Unavailabl e Reason for Visit * Reason Onset Date Comments upper denture insurance 05/11/2023 Encounter Details Date Type Department Care Team (Late st Contact Info) Description 05/11/2023 Telephone [facility] ADULT DENTAL [address] [place] [address] Fartun Delgado, DDS [address] [place], [place] [phone] upper denture insurance Social History Tobacco Use [...] * Telephone Encounter - Sena Vera - 05/11/2023 2:38 PM EDT Patient [...] Description 11/16/2024 3:00 PM EDT Office Visit [facility] ADULT DENTAL [address] [place] [address] Simone Muniz, DMD [address] [place] [address] documented as of this encounter Visit Diagnoses Not on filedocumented in this encounter
--- OUTSIDE RECORDS SUMMARY | 2024-10-31 11:53 | XMS_ITS | Clinical Summary ---
Author Organization [facility] Address [address] [facility] [address] [place] [address] Care Team Providers Care Industrial Roof Plumber Name Role Phone Unavailable Primary Care Provider [...] Mass Index - - Plan of Treatment Upcoming Encounters Date Type Department Care Team (Late st Contact Info) Description 11/16/2024 3:00 PM EDT Office Visit [facility] ADULT DENTAL [address] [place] [address] Simone Muniz DMD [address] [place] [address] Health Maintenance Due Date Last Done Comments [...] patient[place] [id number] [facility] ADULT [address] [facility] [id number] [address] [facility] [id number] [address] [facility] [id number]
== END 2024-10-31 10:37 | disposition home or self-care (01) ==
LOC: HO.HWS 10:04
PROVIDERS: PCP Internal Medicine; Visit Provider Obstetrics & Gynecology
DX: N84.0 Polyp of corpus uteri (principal)
CPT/HCPCS: 99213

== ENCOUNTER → 2024-10-31 10:04 | Outpatient (BNVA) | payer OTHER, SELFPAY | PROVIDERS: PCP Internal Medicine; Visit Provider Obstetrics & Gynecology | DX: N84.0 Polyp of corpus uteri (principal) | CPT/HCPCS: 99212 ==

== ENCOUNTER 2024-11-01 12:35 | Day surgery (SDC) | payer OTHER, SELFPAY ==
[2024-11-01 13:52] VITALS: BP 130/97; PULSE 62; RESP 14; TEMP 36.6; O2SAT 98; BMI 35.2
--- NOTE | 2024-11-01 13:53 | HO.ANESPROP2 ---
HPI - Anesthesia Eval Consult details Narrative: d and c hysteroscopy PMFSH Active Problems Active Problems: All Active Problems Endometrial polyp (Acute) Left breast mass (Acute) Enlarged uterus (Acute) Well woman exam (Acute) Physical exam (Acute) Screening for cervical cancer (Acute) Chest pain (Acute) Hearing loss (Acute) Screening for cervical cancer (Acute) Chronic right shoulder pain (Acute) Osteoarthritis of right knee (Acute) Left knee pain (Acute) Left shoulder pain (Acute) Postmenopausal (Acute) Left breast mass (Acute) Physical exam (Acute) Migraine with aura (Acute) Migraines (Acute) Internal derangement of right shoulder (Acute) Sensorineural hearing loss of right ear (Acute) Asthma (Acute) Night terrors, adult (Acute) Vitamin D deficiency (Acute) Hyperlipidemia (Acute) Hearing loss of right ear (Acute) Rotator cuff injury (Acute) Shoulder arthritis (Acute) Helicobacter pylori (H. pylori) (Acute) Screen for colon cancer (Acute) Insomnia (Acute) DUKE (generalized anxiety disorder) (Acute) Major depressive disorder, recurrent episode, moderate with mood-congruent psychotic features (Acute) Right shoulder pain (Chronic) Class 1 obesity with body mass index (BMI) of 33.0 to 33.9 in adult (Acute) Ophthalmoplegic migraine (Acute) Moderate asthma (Acute) Dyslipidemia (Acute) Past Medical History Medical History Angina at rest Helicobacter pylori (H. pylori) Screen for colon cancer Insomnia DUKE (generalized anxiety disorder) Major depressive disorder, recurrent episode, moderate with mood-congruent psychotic features Right shoulder pain Class 1 obesity with body mass index (BMI) of 33.0 to 33.9 in adult Ophthalmoplegic migraine Moderate asthma Dyslipidemia Family History Family History Mother Cancer Father Cancer Substance use disorder Other Right shoulder pain Family history of problems with anesthesia: No Surgical History Surgical History History of esophagogastroduodenoscopy (EGD) History of ear surgery History of tubal ligation History of appendectomy History of Problems with Anesthesia: No Social History Social History Housing: Apartment Alcohol intake: never Comment: baseline Patient Tobacco Use Status: Never used Tobacco Tobacco use type: Cigarette e-Cigarette/Vaping Use: Never Used Second Hand Smoke Exposure: No Advance Directives: No Advance Directives Information Provided: Yes service: No Current occupational status: unemployed Cognitive needs: Yes Hearing needs: No Vision needs: No Meds Allergies Allergy/AdvReac Type Severity Reaction Status Date / Time Influenza Virus Vaccines Allergy Severe trouble Verified 11/01/24 13:50 breathing strawberry Allergy Severe Rash Verified 11/01/24 13:50 tree nut Allergy Severe Shortness Verified 11/01/24 13:50 of Breath ergocalciferol (vitamin D2) Allergy Mild Rash Verified 11/01/24 13:50 [From Vitamin D2] penicillin V Allergy Mild swelling Verified 11/01/24 13:50 meloxicam AdvReac Mild Palpitation Verified 11/01/24 13:50 s Home Medications ?Medication ?Instructions ?Recorded ?Confirmed ?Last Taken ?Type tiotropium bromide 2.5 2 puff inhalation DAILY 06/17/21 11/01/24 Unknown History mcg/actuation mist for inhalation (Spiriva Respimat) amitriptyline 50 mg tablet 50 mg PO BEDTIME 10/25/23 11/01/24 Unknown History bupropion HCl 150 mg 24 hr tablet, 150 mg PO QAM 10/25/23 11/01/24 Unknown History extended release fluoxetine 20 mg capsule 20 mg PO DAILY 10/25/23 11/01/24 Unknown History risperidone 2 mg tablet 2 mg PO BEDTIME 02/21/24 11/01/24 Unknown History pantoprazole 40 mg tablet,delayed 40 mg PO DAILY 05/02/24 11/01/24 Unknown History release Exam Airway Mallampati Class: II TM Dist: >3cm Neck ROM: Full Denture: Upper (cannot remove, glued tight, also jewellery on ear) and Lower Heart: rrr Lungs: cta Assessment and Plan Assessment Anesthesia Assessment: Anesthesia Plan Discussed and Chart Reviewed Final Anesthetic Review Family History of Problems with Anesthesia: No History of Problems with Anesthesia: No NPO: Yes ASA Class: III Final Preanesthetic Review: No Changes in Pt Med Stat, Meds/Allgs Chart Reviewed, Consent Obtained/Reviewed and Anes Risks/Benef Reviewed Patient Risk: Intermediate Procedure Risk: Low Anesthetic Plan Anesthetic Plan: GA Disposition: Standard PACU
--- NOTE | 2024-11-01 14:11 | MHC.SHP ---
Pre-Procedural Eval Section A - 24 Hr Update-Section A only Date of Service: 11/01/24 Section B - Complete if H&P > 30 days Chief Complaint: Polyp of corpus uteri Allergies: Allergies Allergy/AdvReac Type Severity Reaction Status Date / Time Influenza Virus Vaccines Allergy Severe trouble Verified 11/01/24 13:50 breathing strawberry Allergy Severe Rash Verified 11/01/24 13:50 tree nut Allergy Severe Shortness Verified 11/01/24 13:50 of Breath ergocalciferol (vitamin D2) Allergy Mild Rash Verified 11/01/24 13:50 [From Vitamin D2] penicillin V Allergy Mild swelling Verified 11/01/24 13:50 meloxicam AdvReac Mild Palpitation Verified 11/01/24 13:50 s Plan I have reviewed the history and physical and performed a pertinent physical examination on my patient. No changes have occurred unless specified. Time Spent With Patient Time: Total time managing care of this patient today ____ minutes.
[2024-11-01] MEDS: Lactated Ringers 1,000 ML 80 ML IVCONT (14:22)
--- NOTE | 2024-11-01 14:53 | P.BOP_ITS ---
Brief Operative Note Date of Service: 11/01/24 Pre-op diagnosis: Endometrial polyps by ultrasound Post-op diagnosis: same (Endometrial polyp) Procedure: Hysteroscopy D&C, Polypectomy Surgeon: Matthew Campo MD Anesthesia: GLMA Was an Basting Puller used for this Procedure?: No Estimated blood loss (mL): 0 Pathology: other (Endometrial Scrapping. Polyp) Condition: stable Disposition: PACU
--- NOTE | 2024-11-01 14:53 | P.OP_ITS ---
Operative Note Operative Note Date of Service: 11/01/24 Narrative: Preop Diagnosis: Endometrial polyps by US Operation: Diagnostic Hysteroscopy, Dilataion & Curettage and polypectomy Post Op Diagnosis: Endometrial Polyp QBL: Minimal Anesthesia: GLMA Surgeon: Matthew Campo MD Lead Nuclear Medicine Technologist: None Complication: None Pathology: Endometrial Scrapings, Endometrial polyp Procedure: The patient was put in the dorsal lithotomy position, scrubbed, and draped in the usual manner. A sterile speculum was inserted in the patient's vagina. The anterior lip of the cervix was grasped with a single tooth tenaculum. The cervix was dilated up to 5 mm, then the scope was inserted in the patient's uterus. Inspection revealed endometrial polyp. The Myosure Reach device was used; it was introduced through the operative channel and polypectomy done with no complications. The scope was then taken out from the uterine cavity, sharp curettings was carried on with minimal to moderate amount of tissues retrieved. At the end of the procedure, all instruments were taken out of the patient uterine and vaginal cavity. The single tooth tenaculum was removed and homeostasis was assured using pressure,. The patient tolerated the procedure well and was transferred to the PACU in a stable condition.
[2024-11-01 15:04] VITALS: BP 112/83; PULSE 70; RESP 17; TEMP 36.7; O2SAT 99
[2024-11-01 15:09] VITALS: BP 112/83; PULSE 77; RESP 20; O2SAT 97
[2024-11-01 15:14] VITALS: BP 129/74; PULSE 72; RESP 16; O2SAT 95
[2024-11-01 15:19] VITALS: BP 127/82; PULSE 58; RESP 16; O2SAT 96
[2024-11-01 15:34] VITALS: BP 135/68; PULSE 50; RESP 16; TEMP 36.4; O2SAT 97
== END 2024-11-01 15:54 | disposition home or self-care (01) ==
PROVIDERS: PCP Internal Medicine; Visit Provider Obstetrics & Gynecology
PROC: 0UDB8ZZ Extraction of Endometrium, Via Natural or Artificial Opening Endoscopic (ICD-10-PCS; CPT 58558; principal; 2024-11-01 14:00)
DX: N84.0 Polyp of corpus uteri (principal); E66.811 Obesity, class 1; Z68.33 Body mass index [BMI] 33.0-33.9, adult; E78.5 Hyperlipidemia, unspecified; G43.B0 Ophthalmoplegic migraine, not intractable; J45.998 Other asthma; I20.89 Other forms of angina pectoris; F33.1 Major depressive disorder, recurrent, moderate; F41.1 Generalized anxiety disorder; Z79.899 Other long term (current) drug therapy; Z88.7 Allergy status to serum and vaccine; Z88.0 Allergy status to penicillin; Z88.8 Allergy status to other drugs, medicaments and biological substances; Z91.018 Allergy to other foods; Z56.0 Unemployment, unspecified
CPT/HCPCS: 58558; 88305; J1100; J1885; J2003; J2250; J2405; J2704; J3010

== ENCOUNTER → 2024-11-01 12:35 | Outpatient (BNV) | payer OTHER, SELFPAY | PROVIDERS: PCP Internal Medicine; Visit Provider Obstetrics & Gynecology | DX: N84.0 Polyp of corpus uteri (principal) | CPT/HCPCS: 58558 ==

== ENCOUNTER 2024-11-16 09:19 | Outpatient (AMB) | payer OTHER, SELFPAY ==
--- NOTE | 2024-11-16 09:19 | MHC.OFFVIS ---
Vital Signs 11/16/24 09:20 Height 5 ft 6 in Weight 198 lb BMI 32.0 Intake Visit Reasons: post op Ship Propeller Finisher Required: Yes Ship Propeller Finisher Language: Narrative Writer Services: Ship Propeller Finisher Present (in person) Ship Propeller Finisher Name: Gretchen STRONG Information Interpreted: non-clinical & clinical Accompanied by: Self / Same As Patient Allergies Influenza Virus Vaccines Allergy (Severe, Verified 11/01/24 13:50) trouble breathing strawberry Allergy (Severe, Verified 11/01/24 13:50) Rash tree nut Allergy (Severe, Verified 11/01/24 13:50) Shortness of Breath ergocalciferol (vitamin D2) [From Vitamin D2] Allergy (Mild, Verified 11/01/24 13:50) Rash penicillin V Allergy (Mild, Verified 11/01/24 13:50) swelling meloxicam Adverse Reaction (Mild, Verified 11/01/24 13:50) Palpitations HPI Comments Details: The patient is presenting post hysteroscopy D&C no complaints minimal vaginal bleeding no feverishness chills or abdominal pain. The pathology showed the following: A. Endometrium, polypectomy: Fragments of endometrial polyp; no atypia identified. See comment. B. Endometrium, curettage: Few superficial strips of benign endometrium; abundant blood and clot; no atypia identified. Comment (A): Occasional benign-appearing endometrial glands are present in fragments of smooth muscle, which raise the possibility of adenomyosis as well PFSH Medical History Angina at rest Helicobacter pylori (H. pylori) Screen for colon cancer Insomnia DUKE (generalized anxiety disorder) Major depressive disorder, recurrent episode, moderate with mood-congruent psychotic features Right shoulder pain Class 1 obesity with body mass index (BMI) of 33.0 to 33.9 in adult Ophthalmoplegic migraine Moderate asthma Dyslipidemia Surgical History History of esophagogastroduodenoscopy (EGD) History of ear surgery History of tubal ligation History of appendectomy Family History Mother Cancer Father Cancer Substance use disorder Other Right shoulder pain Social History Housing: Apartment Alcohol intake: never Comment: baseline Patient Tobacco Use Status: Never used Tobacco Tobacco use type: Cigarette e-Cigarette/Vaping Use: Never Used Second Hand Smoke Exposure: No service: No Current occupational status: unemployed Cognitive needs: Yes Hearing needs: No Vision needs: No Review of Systems Const All systems reviewed & are unremarkable except as noted in HPI and below Reports as per HPI and Reports no additional complaints GI Reports no additional complaints Reports no additional complaints Physical Exam Vital Signs: BMI result Body Mass Index 32.0 Assessment & Plan Assessment & Plan (1) Endometrial polyp: Code(s): N84.0 - Polyp of corpus uteri Category: Medical Plan: Discussed with the patient the intraoperative finding, endometrial polyp, status post polypectomy, and the pathology. Discussed with the patient the sensitivity, specificity, positive and negative predictive value, of endometrial biopsy in detecting endometrial pathology including but not limited to endometrial hyperplasia, cancer and other pathology; instructed the patient to call in case vaginal bleeding recurs, the next step will be to proceed with further endometrial sampling evaluation to rule out endometrial pathology. All questions answered and the patient verbalized understanding and agreed with the plan. Coding Level of Care Code Est Pt Level 3 (38682) Diagnoses Endometrial polyp N84.0
[2024-11-16 09:20] VITALS: BMI 32.0
--- OUTSIDE RECORDS SUMMARY | 2024-11-16 10:05 | XMS_ITS | Encounter Summary ---
Author Organization [facility] Address [address] [facility] [address] [place] [address] Care Team Providers Care Dip Lube Operator Name Role Phone Unavailable Primary Care Provider Unavailabl e Reason for Visit * Reason Onset Date Comments Med Refill medication 03/05/2024 Encounter Details Date Type Department Care Team ([facility] st Contact Info) Description 03/05/2024 Refill [facility] ADULT DENTAL [address] [place] [address] Simone Muniz DMD [address] [place] [address] Social History Tobacco Use Types Packs/Day Years [...] Description 11/16/2024 3:00 PM EDT Office Visit [facility] ADULT DENTAL [address] [place] [address] Simone Muniz DMD [address] [place] [address] documented as of this encounter Visit Diagnoses Not on filedocumented in this encounter
--- OUTSIDE RECORDS SUMMARY | 2024-11-16 10:05 | XMS_ITS | Encounter Summary ---
Author Organization [employer] [facility] Address [address] [facility] 7t [place] [address] Care Team Providers Care Hide Curer Name Role Phone Unavailable Primary Care Provider Unavailabl e Reason for Visit * Reason Onset Date Comments upper denture insurance 05/11/2023 Encounter Details Date Type Department Care Team (Late st Contact Info) Description 05/11/2023 Telephone [facility] ADULT DENTAL [address] [place] [address] Fartun Delgado, DDS [address] [place], [place] [phone] upper denture insurance Social History Tobacco Use [...] Description 11/16/2024 3:00 PM EDT Office Visit [facility] ADULT [facility] [address] [place] [address] Simone Muniz, DMD [address] [place] [address] documented as of this encounter Visit Diagnoses Not on filedocumented in this encounter
--- OUTSIDE RECORDS SUMMARY | 2024-11-16 10:05 | XMS_ITS | Encounter Summary ---
Author Organization [employer] Address [address] [facility] 7t [place] [address] Care Team Providers Care Homicide Squad Commanding Officer Name Role Phone Unavailable Primary Care Provider Unavailabl e Encounter Details Date Type Department Care Team (Late st Contact Info) Description 06/09/2023 Telephone [facility] ADULT DENTAL [address] [place] [address] Fartun Delgado DDS [address] [place] [address] Social History Tobacco Use Types Packs/Day Years [...] Description 11/16/2024 3:00 PM EDT Office Visit [facility] ADULT DENTAL [address] [place] [address] Simone Muniz, DMD [address] [place] [address] documented as of this encounter Visit Diagnoses Not on filedocumented in this encounter
--- OUTSIDE RECORDS SUMMARY | 2024-11-16 10:06 | XMS_ITS | Clinical Summary ---
Author Organization [employer] [facility] Address [address] [facility] 7t [place] [address] Care Team Providers Care Pantry Goods Maker Name Role Phone Unavailable Primary Care Provider [...] Office Visit [facility]ULT [facility] [address] [place] [address] Simone Muniz DMD [address] [place] [address] Health Maintenance Due Date Last Done Comments [...] patient[place] this [place] [id number] [facility] ST[place] ADULT [address] [place] [id number] [place] [id number] [address] [place] [id number]
--- OUTSIDE RECORDS SUMMARY | 2024-11-16 10:06 | XMS_ITS | Encounter Summary ---
Author Organization [employer] [facility] Address [address] [facility] 7t [place] [address] Care Team Providers Care Floor Clerk Name Role Phone Unavailable Primary Care Provider Unavailabl e Reason for Visit * Reason Onset Date Comments medication 06/19/2024 Encounter Details Date Type Department Care Team ([facility] st Contact Info) Description 06/19/2024 Telephone [facility] ADULT DENTAL [address] [place] [address] Simone Muniz, DMD [address] [place] [address] medication Social History Tobacco Use Types Packs/Day [...] Description 11/16/2024 3:00 PM EDT Office Visit [facility] ADULT DENTAL [address] [place] [address] Simone Muniz, DMD [address] [place] [address] documented as of this encounter Visit Diagnoses Not on filedocumented in this encounter
== END 2024-11-16 09:35 | disposition home or self-care (01) ==
PROVIDERS: PCP Internal Medicine; Visit Provider Obstetrics & Gynecology
DX: N84.0 Polyp of corpus uteri (principal)
CPT/HCPCS: 99213

== ENCOUNTER → 2024-11-16 09:19 | Outpatient (BNVA) | payer OTHER, SELFPAY | PROVIDERS: PCP Internal Medicine; Visit Provider Obstetrics & Gynecology | DX: N84.0 Polyp of corpus uteri (principal) | CPT/HCPCS: 99212 ==

== ENCOUNTER 2024-11-21 09:48 | Outpatient (AMB) | payer OTHER, SELFPAY ==
--- NOTE | 2024-11-21 10:06 | MHC.OFFVIS ---
Vital Signs 11/21/24 10:12 Height 5 ft 6 in Weight 198 lb BMI 32.0 Intake Visit Reasons: vaginal discharge Plastics Sheet Finishing Press Operator Required: Yes Plastics Sheet Finishing Press Operator Language: [employer]: Plastics Sheet Finishing Press Operator Present (in person) Plastics Sheet Finishing Press Operator Name: Gretchen STRONG Information Interpreted: non-clinical & clinical Hr Payroll Coordinator: Hr Payroll Coordinator Present (Gretchen STRONG) Accompanied by: Self / Same As Patient Allergies Influenza Virus Vaccines Allergy (Severe, Verified 11/21/24 10:13) trouble breathing strawberry Allergy (Severe, Verified 11/21/24 10:13) Rash tree nut Allergy (Severe, Verified 11/21/24 10:13) Shortness of Breath ergocalciferol (vitamin D2) [From Vitamin D2] Allergy (Mild, Verified 11/21/24 10:13) Rash penicillin V Allergy (Mild, Verified 11/21/24 10:13) swelling meloxicam Adverse Reaction (Mild, Verified 11/21/24 10:13) Palpitations Post menopausal: Yes HPI Comments Details: Presenting complaining of watery vaginal discharge for 2 days few days ago with no vaginal odor itching, no other associated symptoms. The patient is not having discharge today no fever or chills no nausea or vomiting. [facility] Medical History Angina at rest Helicobacter pylori (H. pylori) Screen for colon cancer Insomnia DUKE (generalized anxiety disorder) Major depressive disorder, recurrent episode, moderate with mood-congruent psychotic features Right shoulder pain Class 1 obesity with body mass index (BMI) of 33.0 to 33.9 in adult Ophthalmoplegic migraine Moderate asthma Dyslipidemia Surgical History History of esophagogastroduodenoscopy (EGD) History of ear surgery History of tubal ligation History of appendectomy Family History Mother Cancer Father Cancer Substance use disorder Other Right shoulder pain Social History Housing: Apartment Alcohol intake: never Comment: baseline Patient Tobacco Use Status: Never used Tobacco Tobacco use type: Cigarette e-Cigarette/Vaping Use: Never Used Second Hand Smoke Exposure: No service: No Current occupational status: unemployed Cognitive needs: Yes Hearing needs: No Vision needs: No Review of Systems Const All systems reviewed & are unremarkable except as noted in HPI and below Physical Exam Vital Signs: BMI result Body Mass Index 32.0 General: Yes no CVA tenderness External Female Exam: normal external appearance and normal appearance of the urethra Speculum Exam - Vagina: normal appearance of the vagina, normal palpation, no lesions and no masses Speculum Exam - Cervix: normal appearance of the cervix, normal palpation, no lesions, no masses and nontender Bimanual exam- vagina & uterus: normal bimanual exam, normal palpation, uterine size normal, normal palpation, uterine shape normal, No Cervical tenderness present and non-tender Bimanual Exam- Adnexa, other: normal adnexae Back/Spine/Pelvis Back: no CVA tenderness Assessment & Plan Assessment & Plan (1) Vaginal discharge: Code(s): N89.8 - Other specified noninflammatory disorders of vagina Category: Medical Plan: Since the discharge resolved, and the patient is not sexually active, no GC/CT or BV panel collected. Instructions given the patient to call in case of recurrence of discharge, any vaginal bleeding or any other concerns. All questions answered, the patient verbalized understanding. Coding Level of Care Code Est Pt Level 3 (65025) Diagnoses Vaginal discharge N89.8
[2024-11-21 10:12] VITALS: BMI 32.0
--- OUTSIDE RECORDS SUMMARY | 2024-11-21 11:14 | XMS_ITS | Continuity of Care Document ---
Author Organization [facility] Address [address] [place] [address] Phone Care Team Providers Care Warehouse Receiving Clerk Name Role Phone Richard MEJIA, RVT, TIFFANIE, [...] Providers Copied on Encounter [facility] [place], [address] [place] [address] Dr [address] [address], [id number], [place] tel:[phone] [facility] No Information 4 Richard MEJIA RVT, RPVI Robert. [address] [place] [address], [place], [place], [id number], [place]. tel:[phone] [facility], [address] [place] [address] Dr Putnam [address]Suite [place], [id number], [place] tel:[phone] [facility] Chronic venous hypertension (idiopathic) with other complication s of left lower extremityEnc ounter for follow-up examination after completed treatment for conditions other than malignant neoplasm 4 Richard MEJIA RVT, RPVI Robert. [address] [place] [address], [place], [place], [id number], [place]. tel:[phone] Referring Provider: Tracy Butler MD, [address] [place] [address] [address], [address] [place] D/B/A: [facility], [place], [address]. tel:[phone] [facility] MD [place], [address] [place] [address] Dr Putnam [address]Suite [place], [id number], [place] tel:[phone] [facility] of left lower extremity with other complication s May-0 4 Richard MEJIA RVT, TIFFANIE Martin. [address] [facility], [address], [place], [place], [id number], [place]. tel:[phone] Referring Provider: Tracy Butler MD, [address] [facility] , [address] [place] D/B/A: [place], [address]. tel:[phone] [place] [facility], [address] [place] [address] [address] [place], [id number], [place] tel:[phone] [facility] [place] Encounter for follow-up examination after completed treatment for conditions other than malignant neoplasmVari cose veins of right lower extremity with pain Oct-0 - 4 Richard MEJIA RVT, TIFFANIE Martin. [address] [facility], [address], [facility] [place], [id number], [place]. tel:[phone] Referring Provider: Tracy Butler MD, [address] [facility] [address]io, [address] [place] [address] D/B/A: [place], [address]. tel:[phone] [place] 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 [address] [facility], [address], [place], [place], [id number], [place]. tel:[phone] Referring Provider: Tracy Butler MD, [address] [facility] [address], [address] [place] D/B/A: [place], [address]. tel:[phone] Office/Outpt E&M Established 15 Mins- [place] & [place] [facility], [address] [place] [address] [address] Thai [place], [id number], [place] tel:[phone] [facility] - [place] [facility] [place] Chronic venous hypertension (idiopathic) without complication s of bilateral lower extremityLym phedema, not elsewhere classifiedPr uritus, unspecifiedH ereditary lymphedema Apr- 4 Richard MEJIA RVT, TIFFANIE Martin. [address] [facility], [address], [facility] [place], [id number], [place]. tel:[phone] Referring Provider: Tracy Butler MD, [address] , [address] [place] D/B/A: [place], [address]. tel:[phone] [facility], [address] [place] [address] [address] [place], [id number], [place] tel:[phone] CVR [facility] Encounter for follow-up examination after completed treatment for conditions other than malignant neChronic venous hypertension (idiopathic) with other complication s of bilateral lower extremity 4 Richard MEJIA RVT, TIFFANIE Martin. [address] [facility], [address], [facility] [place], [id number], [place]. tel:[phone] Referring Provider: Tracy Butler MD, [address] [facility] , [address] [place] [address] D/B/A: [place], [address]. tel:[phone] [facility], [address] [place] [address] [address] [place], [id number], [place] tel:[phone] CVR [facility] Encounter for follow-up examination after completed treatment for conditions other than malignant neoplasmVari cose veins of left lower extremity with pain 4 Richard MEJIA RVT, TIFFANIE Martin. [address] [facility], [address], [facility] [place], [id number], [place]. tel:[phone] Referring Provider: Tracy Butler MD, [address] [facility] , [address] [place] D/B/A: [place], [address]. tel:[phone] [facility], [address] [place] [address] [address] [address]Thai [place], [id number], [place] tel:[phone] [facility] - [place] Varicose veins of left lower extremity with other complication s 4 Isabela Briggsina. [address] [place] [address], [facility] [place], [id number], [place]. tel:[phone] Referring Provider: Tracy Butler MD, [address], [address] [place] D/B/A: [place], [address]. tel:[phone] [facility], [address] [place] [address] [address] [address]ai [place], [id number], [place] tel:[phone] [facility] [place] Encounter for follow-up examination after completed treatment for conditions other than malignant neVaricose veins of right lower extremity with pain 4 Richard MEJIA, RVT, RPVI Mario. [address] [place] [address], [facility] [place], [id number], [place]. tel:[phone] Referring Provider: Trcay Butler MD, [address] [facility] [address], [address] [place] D/B/A: [place], [address]. tel:[phone] [facility], [address] [place] [address] [address] [address]ai [place], [id number], [place] tel:[phone] [facility] - [place] Varicose veins of right lower extremity with other complication s 4 Jonas Weeks. [address] [place] [address] [address], [facility] [place], [id number], [place]. tel:[phone] Referring Provider: Tracy Butler MD, [address] [facility] [address], [address] [place] D/B/A: [place], [address]. tel:[phone] Office/Outpt E&M Established 15 Mins- CT & [place] [facility], [address] [place] [address] [address] [address], [id number], [place] tel:[phone] CVR - [facility] Varicose veins of bilateral lower extremities with other complication sLymphedema, not elsewhere classifiedPr uritus, unspecifiedH ereditary lymphedema 4 Richard MEJIA RVT, TIFFANIE Martin. [address] [facility], [address], [facility], [place], [id number], [place]. tel:[phone] Referring Provider: Tracy Butler MD, [address] [facility] , [address] D/B/A: [place], [address]. tel:[phone] [facility], [address] [place] [address] [address] [place], [id number], [place] tel:[phone] CVR - [place] [facility] Encounter for follow-up examination after completed treatment for conditions other than malignant neVaricose veins of bilateral lower extremities with pain 4 Richard MEJIA RVT, TIFFANIE Martin. [address] [facility], [address], [facility], [place], [id number], [place]. tel:[phone] Referring Provider: Tracy Butler MD, [address] [facility] , [address] [place] D/B/A: [place], [address]. [phone] [facility], [address] [place] [address] [address] [place], [id number], [place] tel:[phone] CVR - [facility] Encounter for follow-up examination after completed treatment for conditions other than malignant nePain in left leg 4 Richard MEJIA RVT, TIFFANIE Martin. [address] [facility], [address], [facility] [place], [place], [id number], [place]. tel:[phone] Referring Provider: Tracy Butler MD, [address] [facility] , [address] D/B/A: [place], [address]. tel:[phone] [facility], [address] [place] [address] [address] [address]ai [place], [id number], [place] tel:[phone] [facility] Chronic venous hypertension (idiopathic) with inflammation of left lower extremity 4 Richard MEJIA RVT, TIFFANIE Martin. [address] [facility], [address], [facility] [place], [id number], [place]. tel:[phone] Referring Provider: Tracy Butler MD, [address] [facility] [address], [address] [place] D/B/[place]: [place], [address]. tel:[phone] [facility], [address] [place] [address] [address] [place], [id number], [place] tel:[phone] [facility] - [place] Encounter for follow-up examination after completed treatment for conditions other than malignant nePain in right lower leg 4 Richard MEJIA RVT, TIFFANIE Martin. [address] [place] [address], Suite [facility], [facility] [place], [id number], [place]. tel:[phone] Referring Provider: Tracy Butler MD, [address] [facility] [address], [address] [place] [address] D/B/[place]: [place], [address]. tel:[phone] [facility], [address] [place] [address] [address] [place], [id number], [place] tel:[phone] [facility] Chronic venous hypertension (idiopathic) without complication s of bilateral lower extremity 4 Richard MEJIA RVT, TIFFANIE Martin. [address] [place] [address], [address], [facility] [place] [place], [id number], [place]. tel:[phone] 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 [address] [place] [address], [address], [facility] [place] [place], [id number], [place]. tel:[phone] Referring Provider: Tracy Butler MD, [address], [address] [place] [address] D/B/A: [place], [address]. tel:[phone] [place] [facility], [address] [place] [address] [address] Put[address], [place], [id number], [place] tel:[phone] [facility] No Information 4 Richard MEJIA, RVT, TIFFANIE Martin. [address] [place] [address], [facility] [place], [id number], [place]. tel:[phone] Offic/outpt E&m Estab 5 Min Trial - Telemedicine [facility], [address] [place] [address] [address], [place], [id number], [place] tel:[phone] [facility] Localized edemaCramp and spasmRestles s legs syndromeVeno us insufficienc y (chronic) (peripheral) Lymphedema, not elsewhere classifiedPr uritus, unspecifiedH ereditary lymphedema 4 Jonas Weeks. [address] [place] [address], [facility] [place], [id number], [place]. tel:[phone] Referring Provider: Tracy Butler MD, [address] [facility] [address], [address] [place] [address] D/B/A: [place], [address]. tel:[phone] Offic Cons New/estab Mod-hi [address] [facility], [address] [place] [address] [address], [place], [id number], [place] tel:[phone] [facility] Chronic venous hypertension (idiopathic) with other complication s of bilateral lower extremityLoc alized edemaPain in right legPain in left legRestless legs syndromeVeno us insufficienc y (chronic) (peripheral) Lymphedema, not elsewhere classifiedPr uritus, unspecifiedH ereditary lymphedemaCr amp and spasm 3 Arun MEJIA FACS RVT RPDANY Teresa. [address] [facility], Suite [facility], [place], [address], [place]. tel:[phone] Referring Provider: Tracy Butler MD, [address] [facility] [address], [address] [place] [address] D/B/A: [place], [address]. tel:[phone] [facility], [address] [facility] [address], [place], [id number], tel:[phone] [place] - [place] Chronic venous hypertension (idiopathic) with other complication s of bilateral lower extremity 3 Arun MEJIA FACS [facility] TIFFANIE Teresa. [address] [facility], [place] [address], [place], [address], [place]. tel:[phone] Referring Provider: Tracy Butler MD, [address] [facility] [address], [address] [place] [address] D/B/A: [place], [address]. tel:[phone] Family History Family Member Type Diagnosis Age At Onset No Information Payers Payer name Insurance type Covered constitution party ID Authorolega mauro(s) [facility] [id number] Social History Type Description Quantity Date Captured [...]
== END 2024-11-21 10:22 | disposition home or self-care (01) ==
LOC: HO.HWS 09:48
PROVIDERS: PCP Internal Medicine; Visit Provider Obstetrics & Gynecology
DX: N89.8 Other specified noninflammatory disorders of vagina (principal)
CPT/HCPCS: 99213

== ENCOUNTER → 2024-11-21 09:48 | Outpatient (BNVA) | payer OTHER, SELFPAY | PROVIDERS: PCP Internal Medicine; Visit Provider Obstetrics & Gynecology | DX: N89.8 Other specified noninflammatory disorders of vagina (principal) | CPT/HCPCS: 99212 ==

== ENCOUNTER 2024-11-28 09:42 | Outpatient (AMB) | payer OTHER, SELFPAY ==
--- NOTE | 2024-11-28 09:52 | MHC.PC.OV ---
Vital Signs 11/28/24 09:55 Height 5 ft 6 in Weight 218 lb BMI 35.2 BP 130/80 Blood Pressure Location Lt brachial Position Sitting Intake Visit Reasons: depression Intake Note: Patient here for a follow up depression [facility] Required: No Accompanied by: Self / Same As Patient Allergies Influenza Virus Vaccines Allergy (Severe, Verified 11/28/24 10:08) trouble breathing strawberry Allergy (Severe, Verified 11/28/24 10:08) Rash tree nut Allergy (Severe, Verified 11/28/24 10:08) Shortness of Breath ergocalciferol (vitamin D2) [From Vitamin D2] Allergy (Mild, Verified 11/28/24 10:08) Rash penicillin V Allergy (Mild, Verified 11/28/24 10:08) swelling meloxicam Adverse Reaction (Mild, Verified 11/28/24 10:08) Palpitations Medication List - Last Reconciled 11/28/24 by Tracy Milton MD acetaminophen ER 1,300 mg (2 x 650 mg) PO Q8H PRN 90 days albuterol sulfate 2.5 mg (3 mL) inhalation Q6H 30 days albuterol sulfate 90 mcg/actuation 2 puffs inhalation Q6H PRN amitriptyline 50 mg PO BEDTIME bismuth subsalicylate 2 tabs PO QID 14 days bupropion HCl XL 150 mg PO QAM clonazepam 0.5 mg PO BID PRN 30 days diclofenac sodium 1% (Arthritis Pain (diclofenac)) 4 grams topical QID fluoxetine 20 mg PO DAILY fluticasone propionate 44 mcg/actuation (Flovent HFA) 2 puffs inhalation BID 30 days loratadine (Allergy Relief (loratadine)) 10 mg PO DAILY 90 days metoclopramide HCl (Reglan) 5 mg PO QIDACHS nitroglycerin 0.3 mg sublingual Q5M PRN 30 days olopatadine 0.2% (Pataday Once Daily Relief) 1 drp ophthalmic (eye) DAILY PRN 30 days ondansetron 4 mg PO Q8H PRN pantoprazole 40 mg PO DAILY rabeprazole 20 mg PO BID risperidone 2 mg PO BEDTIME sucralfate (Carafate) 10 mL PO BEDTIME tiotropium bromide 2.5 mcg/actuation (Spiriva Respimat) 2 puffs inhalation DAILY topiramate 50 mg PO DAILY 90 days trazodone 300 mg (3 x 100 mg) PO BEDTIME 90 days Tobacco use date assessed: 11/28/24 Dental Screening Dental Screen Date: 11/28/24 Did you have a dental visit in the last 12 months?: Yes Did you have a dental problem in the last 6 months where you did not have access to dental care?: No Was dental information given to patient?: Patient has dentist HPI HPI Comments History of Present Illness Details The patient is a 64-year-old female presenting with persistent migraines and chronic pain in the right knee and shoulder. She describes the migraines as debilitating, with ocular swelling and nausea. Her headaches have been longstanding and intensified post-cranial surgery for a benign tumor. The patient has been treated with Topamax for migraines, which has not provided significant relief. Knee and shoulder pains are chronic issues aggravated by movement and present with swelling. She has trialed an injection for the shoulder without definitive improvement. Additionally, morning dizziness ameliorated by sweet coffee consumption is reported, though it returns later in the day. Mild major depression and anxiety has been stable with medications and this is follow by Psychiatry. [facility] Medical History (Updated 11/28/24 @ 10:27 by Tracy Milton MD) Angina at rest Helicobacter pylori (H. pylori) Screen for colon cancer Insomnia DUKE (generalized anxiety disorder) Major depressive disorder, recurrent episode, moderate with mood-congruent psychotic features Right shoulder pain Class 1 obesity with body mass index (BMI) of 33.0 to 33.9 in adult Ophthalmoplegic migraine Moderate asthma Dyslipidemia Surgical History History of esophagogastroduodenoscopy (EGD) History of ear surgery History of tubal ligation History of appendectomy Family History Mother Cancer Father Cancer Substance use disorder Other Right shoulder pain Social History Housing: Apartment Alcohol intake: never Comment: baseline Patient Tobacco Use Status: Never used Tobacco e-Cigarette/Vaping Use: Never Used Second Hand Smoke Exposure: No service: No Current occupational status: unemployed Cognitive needs: Yes Hearing needs: No Vision needs: No Questionnaire PHQ-9 Over the last 2 weeks, how often have you been bothered by any of the following problems? 1. Little interest or pleasure in doing things: not at all 2. Feeling down, depressed, or hopeless: several days 3. Trouble falling or staying asleep, or sleeping too much: not at all 4. Feeling tired or having little energy: not at all 5. Poor appetite or overeating: not at all 6. Feeling bad about yourself - or that you are a failure or have let yourself or your family down: not at all 7. Trouble concentrating on things, such as reading the newspaper or watching television: not at all 8. Moving or speaking so slowly that other people could have noticed. Or the opposite - being so fidgety or restless that you have been moving around a lot more than usual: not at all 9. Thoughts that you would be better off or of hurting yourself in some way: not at all Total score: 1 Depression Screening Interpretation: Positive Depression Screening Follow-up: Existing condition, In treatment, Community Mental Health Worker F/U and Follow-up Visit Requested Depression Screening Done: Yes 00451 - PHQ-9 Billing: Yes Source: Developed by Drs. Mario Tran, Chanell Rosas, Perfecto Alas and colleagues, with an educational donny from [employer]. Thrive Questionnaire Date Thrive assessed: 11/28/24 I am a: Patient What is your living situation today?: I have a steady place to live Within the past 12 months, did the food you bought not last and you didn't have the money to get more?: Never true Within the past 12 months, did you worry whether your food would run out before you got money to buy more?: Never true Do you have trouble paying for medicines?: No Do you have trouble getting transportation to medical appointments?: No Do you have trouble paying your heating and electricity bill?: No Do you have trouble taking care of your child, family member or friend?: No Do you have trouble with day-to-day activities such as bathing, preparing meals, shopping, managing finances, etc.?: No Are you currently unemployed and looking for a job?: No Are you interested in more education?: No Please select the resources that you would like help with: None Currently or been in a relationship where the following occur: No concerns reported THRIVE Score: 0 AUDIT C Alcohol Use Questionnaire (AUDIT-C) 1. How often do you have a drink containing alcohol?: Never Total Score: 0 Score Reviewed/Action Taken: No DUKE-7 AMB Questionnaire DUKE-7 Date DUKE - 7 assessed: 11/28/24 Feeling nervous, anxious, or on edge: 1 = Several days Not being able to stop or control worryin = Not at all Worrying too much about different things: 0 = Not at all Trouble relaxin = Not at all Being so restless that it is hard to sit still: 0 = Not at all Becoming easily annoyed or irritable: 0 = Not at all Feeling afraid as if something awful might happen: 0 = Not at all Total DUKE-7 score (0-4 normal; 5-9 mild; 10-14 moderate; 15-21 severe): 1 Source: Developed by Drs. Mario Tran, Chanell Rosas, Perfecto Alas and colleagues, with an educational donny from [employer]. DUKE-7 Assessment Billing DUKE-7 Assessment Tool: DUKE-7 Assessment 42156 Review of Systems Const All systems reviewed & are unremarkable except as noted in HPI and below Card Denies chest pain at rest, Denies chest pain with activity, Denies edema, Denies irregular heart rhythm, Denies claudication, Denies dyspnea, Denies dyspnea on exertion, Denies orthopnea, Denies paroxysmal nocturnal dyspnea and Denies slow heart rate Resp Denies cough, Denies dyspnea and Denies dyspnea on exertion GI Denies abdominal pain, Denies change in bowel habits, Denies excessive flatus, Denies nausea and Denies vomiting Neuro Denies lack of coordination Physical exam (Primary Care) Vital Signs: Last Vital Signs BP 130/80 11/28/24 09:55 BMI result Body Mass Index 35.2 Tobacco/Smoking Status: Tobacco use Status Tobacco use date assessed 11/28/24 11/28/24 10:05 Patient Tobacco Use Status Never used Tobacco 11/28/24 10:05 Tobacco use type 11/28/24 10:05 e-Cigarette/Vaping Use Never Used 11/28/24 10:05 PHQ-9: PHQ-9 Score PHQ-9: Total score 1 11/28/24 10:05 Depression Screening Interpretation: Positive Depression Screening Follow-up: Existing condition, In treatment, Community Mental Health Worker F/U and Follow-up Visit Requested Thrive Assessment: Date of Thrive Assessment Date Thrive assessed 11/28/24 11/28/24 10:05 Currently or been in a relationship where the following occur: No concerns reported Resp Effort & Inspection: normal respiratory effort Auscultation: clear to auscultation bilaterally Cardio Jugular venous distension: no JVD Rate: regular rate Rhythm: regular rhythm Heart sounds: S1 normal heart sound present and S2 normal heart sound present Neuro General: no focal motor deficits Extrem General: Yes full ROM Psych Appearance: grossly normal Coding Level of Care Code Est Pt Level 4 (53401) Complex EM visit Add On G2211 Diagnoses Persistent headaches R51.9 Chronic right shoulder pain M25.511; G89.29 Chronicity: chronic Chronic pain of right knee M25.561; G89.29 Chronicity: chronic Major depressive disorder, recurrent episode, moderate with mood-congruent psychotic features F33.1 DUKE (generalized anxiety disorder) F41.1 Additional Codes PHQ-9 - 66464 - PHQ-9 Billing: Yes ([id number]) DUKE-7 Assessment Billing - DUKE-7 Assessment Tool: DUKE-7 Assessment 98179 ([id number]) Time Spent (min) 22 Assessment & Plan Assessment & Plan (1) Persistent headaches: Code(s): R51.9 - Headache, unspecified Category: Medical (2) Right shoulder pain: Code(s): M25.511 - Pain in right shoulder Category: Medical Qualifiers: Chronicity: chronic Qualified Code(s): M25.511 - Pain in right shoulder; G89.29 - Other chronic pain (3) Right knee pain: Code(s): M25.561 - Pain in right knee Category: Medical Qualifiers: Chronicity: chronic Qualified Code(s): M25.561 - Pain in right knee; G89.29 - Other chronic pain (4) Major depressive disorder, recurrent episode, moderate with mood-congruent psychotic features: Code(s): F33.1 - Major depressive disorder, recurrent, moderate Category: Medical (5) DUKE (generalized anxiety disorder): Code(s): F41.1 - Generalized anxiety disorder Category: Medical Plan I discussed with the patient a detailed plan, which involves referring her to a neurologist for targeted evaluation of her migraine headaches and instituting further imaging studies for her right knee and shoulder to assess the cause of her chronic pain. There is consideration for updating her pain management strategy under orthopedic care. The need for compliance with current medication regimens was emphasized, and new plans include a potential alternative analgesic trial to safely manage pain. Upcoming lab tests will screen for cholesterol and other preventive health measures. Patient was informed and verbally consented to the use of an ambient scribe for clinic note documentation during this visit. I explained the potential for specific migraine therapies, suggesting neurology consultation considering current inefficacy of medications like Topamax. The benefits of imaging for her joint complaints were highlighted, reflecting on joint preservation strategies. The patient was advised to continue her current psychiatric treatments and adapt her analgesic plan with caution. I reassured her about transportation facilitation for consultations and ensured consent was understood for proposed evaluations. Orders: Orders XR knee RT 2V Today M25.561 - Pain in right knee XR shoulder RT min 2V Today M25.511 - Pain in right shoulder Vitamin B12 and Folate 6 Months E53.8 - Deficiency of other specified B group vitamins Vitamin D 25-OH Total 6 Months E55.9 - Vitamin D deficiency, unspecified IRON PROFILE 6 Months D64.9 - Anemia, unspecified Lipid Panel 6 Months E78.5 - Hyperlipidemia, unspecified Complete Blood Count Auto Diff 6 Months D64.9 - Anemia, unspecified Comprehensive [place]. Panel Fast 6 Months R51.9 - Headache, unspecified Referrals Neurology Referral R51.9 - Headache, unspecified Orthopedics Referral M25.511 - Pain in right shoulder, M25.561 - Pain in right knee Medications: New celecoxib (Celebrex) 100 mg PO BID 5 days PRN 10 caps 0RF pain Changed From pantoprazole 40 mg PO DAILY To pantoprazole 40 mg PO DAILY 90 days 90 tabs 1RF Refilled acetaminophen ER 1,300 mg (2 x 650 mg) PO Q8H 90 days PRN 540 tabs 1RF fever or pain Patient Instructions: - Continue all prescribed medications. - Arrange consultation with neurology for migraine management. - Follow up for orthopedic evaluation and imaging of knee and shoulder. - Engage in morning stretching and light activity as tolerated. - Report any new or worsening symptoms promptly. - Plan to revisit in six months for laboratory tests, including cholesterol. - Monitor dizziness; if worsens, seek immediate attention. - Confirm transportation arrangements for appointments.
[2024-11-28 09:55] VITALS: BP 130/80; BMI 35.2
--- OUTSIDE RECORDS SUMMARY | 2024-11-28 10:46 | XMS_ITS | Clinical Summary ---
Author Organization [facility] Address [address] [place] [address] Care Team Providers Care Supervisor Coal Handling Name Role Phone Unavailable Primary Care Provider [...] Insurance [facility] [place] STAND ADULT # [address] [place] [id number] [place] [phone]
--- OUTSIDE RECORDS SUMMARY | 2024-11-28 10:46 | XMS_ITS | Encounter Summary ---
Author Organization [facility] Address [address] [place] [address] Care Team Providers Care Rum Processing Operator Name Role Phone Unavailable Primary Care Provider Unavailabl e Reason for Visit * Reason Onset Date Comments Med Refill medication 03/05/2024 Encounter Details Date Type Department Care Team ([facility] st Contact Info) Description 03/05/2024 Refill [facility] [address] [place] [address] Simone Muniz DMD [address] [place] [address] Social History Tobacco Use Types Packs/Day Years [...]
--- OUTSIDE RECORDS SUMMARY | 2024-11-28 10:46 | XMS_ITS | Encounter Summary ---
Author Organization [employer] Address [address] [place] [address] Care Team Providers Care Brusher Warp Name Role Phone Unavailable Primary Care Provider Unavailabl e Encounter Details Date Type Department Care Team (Late st Contact Info) Description 06/09/2023 Telephone [facility] [address] [place] [address] Fartun Delgado DDS [address] [place] [address] Social History Tobacco Use Types Packs/Day Years [...]
--- OUTSIDE RECORDS SUMMARY | 2024-11-28 10:46 | XMS_ITS | Encounter Summary ---
Author Organization [facility] Address [address] [place] [address] Care Team Providers Care Steam And Gas Turbines Assembler Name Role Phone Unavailable Primary Care Provider Unavailabl e Reason for Visit * Reason Onset Date Comments medication 06/19/2024 Encounter Details Date Type Department Care Team ([facility] st Contact Info) Description 06/19/2024 Telephone [facility] ADULT [facility] [address] [place] [address] Simone Muniz, DMD [address] [place] [address] medication Social History Tobacco Use Types Packs/Day [...]
--- OUTSIDE RECORDS SUMMARY | 2024-11-28 10:46 | XMS_ITS | Continuity of Care Document ---
Author Organization [facility] Address [address] [place] [address] Phone Care Team Providers Care Ironer Name Role Phone Richard MEJIA, RVT, TIFFANIE, [...] Providers Copied on Encounter [facility] [place], [address] [place] [address] Dr Putnam [facility] [address], [id number], [place] tel:[phone] [facility] No Information 4 Richard MEJIA RVT, RPVI Robert. [address] [place] [address], [place], [place], [id number], [place]. tel:[phone] [facility], [address] [place] [address] Dr Putnam 1000Suite Thai H[place], [id number], [place] tel:[phone] [facility] Chronic venous hypertension (idiopathic) with other complication s of left lower extremityEnc ounter for follow-up examination after completed treatment for conditions other than malignant neoplasm 4 Richard MEJIA RVT, RPVI Robert. [address] [place] [address], [place], [place], [id number], [place]. tel:[phone] Referring Provider: Tracy Butler MD, [address] [place] [address] DrDelio, [address] [place] D/B/A: [facility], RHONDA [place], [address]. tel:[phone] [facility] MD [place], [address] [place] [address] Dr Putnam [address]Suite [place] MD, [id number], [place] tel:[phone] [facility] Varicose veins of left lower extremity with other complication s May-0 4 Richard MEJIA RVT, TIFFANIE aMrtin. [address], [address], [place], [place], [id number], [place]. tel:[phone] Referring Provider: Tracy Butler MD, [address] [facility] , [address] [place] D/B/A: [place], [address]. tel:[phone] [facility] [facility], [address] [place] [address] [address] Thai [place], [id number], [place] tel:[phone] [facility] - [place] [facility] [place] Encounter for follow-up examination after completed treatment for conditions other than malignant neoplasmVari cose veins of right lower extremity with pain Oct-0 - 4 Richard MEJIA RVT, TIFFANIE Martin. [address], [address], [facility] [place], [id number], [place]. tel:[phone] Referring Provider: Tracy Butler MD, [address] [facility] DrDelio, [address] [place] [address] D/B/A: [place], [address]. tel:[phone] [place] [facility], [address] [place] [address] [address] Thai [place], [id number], [place] tel:[phone] [facility] [place] [facility] [place] Varicose veins of right lower extremity with other complication s Sep-2 4 Richard MEJIA RVT, TIFFANIE Martin. [address], [address], [place], [place], [id number], [place]. tel:[phone] Referring Provider: Tracy Butler MD, [address] [facility] [address]Delio, [address] [place] D/B/A: [place], [address]. tel:[phone] Office/Outpt E&M Established 15 Mins- CT & [place] [facility], [address] [place] [address] [address] Thai [place] MD, [id number], [place] tel:[phone] [facility] - [place] [facility] [place] Chronic venous hypertension (idiopathic) without complication s of bilateral lower extremityLym phedema, not elsewhere classifiedPr uritus, unspecifiedH ereditary lymphedema Apr- 4 Richard MEJIA RVT, TIFFANIE Martin. [address], [address], [facility] [place], [id number], [place]. tel:[phone] Referring Provider: Tracy Butler MD, [address] , [address] [place] D/B/A: [place], [address]. tel:[phone] [facility], [address] [place] [address] [address] Thai [place], [id number], [place] tel:[phone] CVR [facility] Encounter for follow-up examination after completed treatment for conditions other than malignant neChronic venous hypertension (idiopathic) with other complication s of bilateral lower extremity 4 Richard MEJIA RVT, TIFFANIE Martin. [address], [address], [facility] [place], [id number], [place]. tel:[phone] Referring Provider: Tracy Butler MD, [address] [facility] , [address] [place] [address] D/B/A: [place], [address]. tel:[phone] [facility], [address] [place] [address] [address] Thai [place], [id number], [place] tel:[phone] [facility]R [facility] Encounter for follow-up examination after completed treatment for conditions other than malignant neoplasmVari cose veins of left lower extremity with pain 4 Richard MEJIA RVT, TIFFANIE Martin. [address], [address], [facility] [place], [id number], [place]. tel:[phone] Referring Provider: Tracy Butler MD, [address] [facility] , [address] [place] D/B/A: [place], [address]. tel:[phone] [facility], [address] [place] [address] [address] [address]ai [place], [id number], [place] tel:[phone] [facility] - [place] Varicose veins of left lower extremity with other complication s 4 Isabela Briggsina. [address] [place] [address] 302, [facility] [place], [id number], [place]. tel:[phone] Referring Provider: Tracy Butler MD, [address], [address] [place] D/B/A: [place], [address]. tel:[phone] [facility], [address] [place] [address] [address] [address], [id number], [place] tel:[phone] [facility] - [place] Encounter for follow-up examination after completed treatment for conditions other than malignant neVaricose veins of right lower extremity with pain 4 Richard MEJIA, RVT, RPVI Mario. [address] [place] [address], [facility] [place], [id number], [place]. tel:[phone] Referring Provider: Tracy Butler MD, [address] [facility] [address]io, [address] [place] D/B/A: [place], [address]. tel:[phone] [facility], [address] [place] [address] [address] [address], [id number], [place] tel:[phone] [facility] - [place] Varicose veins of right lower extremity with other complication s 4 Jonas Weeks. [address] [place] [address] [address], [facility] [place], [id number], [place]. tel:[phone] Referring Provider: Tracy Butler MD, [address] [facility] [address]io, [address] [place] D/B/A: [place], [address]. tel:[phone] Office/Outpt E&M Established 15 Mins- CT & [place] [facility], [address] [place] [address] [address] 1000[place], [id number], [place] tel:[phone] CVR - [facility] Varicose veins of bilateral lower extremities with other complication sLymphedema, not elsewhere classifiedPr uritus, unspecifiedH ereditary lymphedema 4 Richard MEJIA RVT, TIFFANIE Martin. [address], [address], [facility], [place], [id number], [place]. tel:[phone] Referring Provider: Tracy Butler MD, [address] [facility] , [address] [place] D/B/A: [place], [address]. tel:[phone] [facility], [address] [place] [address] [address]Suite Thai [place], [id number], [place] tel:[phone] [facility] - [place] [facility] Encounter for follow-up examination after completed treatment for conditions other than malignant neVaricose veins of bilateral lower extremities with pain 4 Richard MEJIA RVT, TIFFANIE Martin. [address], [address], [facility], [place], [id number], [place]. tel:[phone] Referring Provider: Tracy Butler MD, [address] [facility] , [address] [place] D/B/A: [place], [address]. [phone] [facility], [address] [place] [address] [address] Thai [place], [id number], [place] tel:[phone] CVR - [facility] Encounter for follow-up examination after completed treatment for conditions other than malignant nePain in left leg 4 Richard MEJIA RVT, TIFFANIE Martin. [address], [address], [facility] [place], [place], [id number], [place]. tel:[phone] Referring Provider: Tracy Butler MD, [address] [facility] , [address] [place] D/B/A: [place], [address]. tel:[phone] [facility], [address] [place] [address] [address] [address], [id number], [place] tel:[phone] [facility] [place] Chronic venous hypertension (idiopathic) with inflammation of left lower extremity 4 Richard MEJIA RVT, TIFFANIE Martin. [address], [address], [facility] [place], [id number], [place]. tel:[phone] Referring Provider: Tracy Butler MD, [address] [facility] [address]io, [address] [place] D/B/A: [place], [address]. tel:[phone] [facility], [address] [place] [address] [address] Thai [place], [id number], [place] tel:[phone] [facility] - [place] Encounter for follow-up examination after completed treatment for conditions other than malignant nePain in right lower leg 4 Richard MEJIA RVT, TIFFANIE Martin. [address] [place] [address], Suite [facility], [facility] [place], [id number], [place]. tel:[phone] Referring Provider: Tracy Butler MD, [address] [facility] [address]Delio, [address] [place] [address] D/B/A: [place], [address]. tel:[phone] [facility], [address] [place] [address] [address] Thai [place], [id number], [place] tel:[phone] [facility] - [place] Chronic venous hypertension (idiopathic) without complication s of bilateral lower extremity 4 Richard MEJIA RVT, TIFFANIE Martin. [address] [place] [address], [address], [facility] [place] [place], [id number], [place]. tel:[phone] [facility], [address] [place] [address] [address] Thai [place], [id number], [place] tel:[phone] [facility] - [place] Varicose veins of right lower extremity with other complication s 4 Richard MEJIA RVT, TIFFANIE Martin. [address] [place] [address], [address], [facility] [place], [id number], [place]. tel:[phone] Referring Provider: Tracy Butler MD, [address], [address] [place] [address] D/B/A: [place], [address]. tel:[phone] [place] [facility], [address] [place] [address] Dr Putnam [address], [place], [id number], [place] tel:[phone] [facility] No Information 4 Richard MEJIA, RVT, TIFFANIE Martin. [address] [place] [address], [facility] [place], [id number], [place]. tel:[phone] Offic/outpt E&m Estab 5 Min Trial - Telemedicine [facility], [address] [place] [address] [address], [place], [id number], [place] tel:[phone] [facility] Localized edemaCramp and spasmRestles s legs syndromeVeno us insufficienc y (chronic) (peripheral) Lymphedema, not elsewhere classifiedPr uritus, unspecifiedH ereditary lymphedema 4 Jonas Weeks. [address] [place] [address], [facility] [place], [id number], [place]. tel:[phone] Referring Provider: Tracy Butler MD, [address] [facility] [address]Delio, [address] [place] [address] D/B/A: [place], [address]. tel:[phone] Offic Cons New/estab Mod-hi 60 [facility], [address] [place] [address] [address], [place], [id number], [place] tel:[phone] [facility] Chronic venous hypertension (idiopathic) with other complication s of bilateral lower extremityLoc alized edemaPain in right legPain in left legRestless legs syndromeVeno us insufficienc y (chronic) (peripheral) Lymphedema, not elsewhere classifiedPr uritus, unspecifiedH ereditary lymphedemaCr amp and spasm 3 Arun MEJIA FACS RVT RPDANY Teresa. [address], Suite [facility], [place], [address], [place]. tel:[phone] Referring Provider: Tracy Butler MD, [address] [facility] [address]Delio, [address] [place] [address] D/B/[place]: [place], [address]. tel:[phone] [facility], [address] [facility] [address], [place], [id number], tel:[phone] [facility] - [place] Chronic venous hypertension (idiopathic) with other complication s of bilateral lower extremity 3 Arun MEJIA FACS [facility] TIFFANIE Teresa. [address], [place] [address], [place], [address], [place]. tel:[phone] Referring Provider: Tracy Butler MD, [address] [facility] DrDelio, [address] [place] [address] D/B/[place]: [place], [address]. tel:[phone] Family History Family Member Type Diagnosis Age At Onset No Information Payers Payer name Insurance type Covered alliance party ID Authorolega mauro(s) [facility] [id number] Social History Type Description Quantity Date [...]
--- OUTSIDE RECORDS SUMMARY | 2024-11-28 10:46 | XMS_ITS | Encounter Summary ---
Author Organization [facility] Address [address] [facility] 7[address] [place] [address] Care Team Providers Care Costume Shop Coordinator Name Role Phone Unavailable Primary Care Provider Unavailabl e Reason for Visit * Reason Onset Date Comments upper denture insurance 05/11/2023 Encounter Details Date Type Department Care Team (Late st Contact Info) Description 05/11/2023 Telephone [facility] [address] [place] [address] Fartun Delgado, DDS [address] [place], [place] [phone] upper denture insurance Social History Tobacco Use [...]
== END 2024-11-28 10:39 | disposition home or self-care (01) ==
LOC: HO.HMCH 09:43
PROVIDERS: PCP Internal Medicine; Visit Provider Internal Medicine
DX: R51.9 Headache, unspecified (principal); F33.1 Major depressive disorder, recurrent, moderate; M25.511 Pain in right shoulder; G89.29 Other chronic pain; M25.561 Pain in right knee; F41.1 Generalized anxiety disorder

== ENCOUNTER → 2024-11-28 09:42 | Outpatient (BNVA) | payer OTHER, SELFPAY | PROVIDERS: PCP Internal Medicine; Visit Provider Internal Medicine | DX: R51.9 Headache, unspecified (principal); M25.511 Pain in right shoulder; M25.561 Pain in right knee; G89.29 Other chronic pain; F33.1 Major depressive disorder, recurrent, moderate; F41.1 Generalized anxiety disorder | CPT/HCPCS: 96127; 99212 ==

== ENCOUNTER 2025-02-16 10:37 | Outpatient (AMB) | payer OTHER, SELFPAY ==
--- NOTE | 2025-02-16 10:43 | MHC.OFFVIS ---
Vital Signs 02/16/25 10:45 Height 5 ft 6 in Weight 213 lb 13.574 oz BMI 34.5 BP 112/62 Blood Pressure Location Lt brachial Position Sitting Pulse 58 Intake Visit Reasons: Nausea,abd. pain, melena r/s 02/16 8 am Intake Note: Hilda presents in the office as a follow up for nausea, abdominal pains, melena. CC: She is here today because she is having pains in the stomach, some constipation and diarrhea. She states that she also has nausea and issues when she has to have a BM - if she eats she will hae diarrhea or vomiting. [employer] Internship Required: Yes [employer] Internship Name: [id number] Allergies Influenza Virus Vaccines Allergy (Severe, Verified 02/16/25 10:45) trouble breathing strawberry Allergy (Severe, Verified 02/16/25 10:45) Rash tree nut Allergy (Severe, Verified 02/16/25 10:45) Shortness of Breath ergocalciferol (vitamin D2) (From Vitamin D2) Allergy (Mild, Verified 02/16/25 10:45) Rash penicillin V Allergy (Mild, Verified 02/16/25 10:45) swelling meloxicam Adverse Reaction (Mild, Verified 02/16/25 10:45) Palpitations HPI HPI Nausea,abd. pain, melena r/s 02/16 8 am: Details: LAST VISIT: Helicobacter pylori (H. pylori) GERD (gastroesophageal reflux disease) Postprandial abdominal pain in right upper quadrant IBS (irritable bowel syndrome) Constipation Postprandial epigastric pain Nausea and vomiting in adult Plan Patient was encouraged to finish all of her treatment for H pylori. Will need to be retested 8-10 weeks after finishing of the antibiotics. Patient has been dealing with symptoms for such a long time. Unsure if patient is really following diet to help her with the symptoms. Continue Reglan. Small meals and more often. Long discussion with patient regarding diet and portion control. Diet recommendations made. List of food recommended as well as list of food to avoid given to patient. Patient will follow-up in the office in 2 months, sooner on as needed basis. She is agreeable to this plan and verbalizes understanding of instructions. She was given the opportunity to ask questions and all questions answered. ? Thank you for allowing me to participate in her care TODAY'S VISIT Patient is here today for request visit. Patient was unable to keep her appointments in the past few months as she was in [place] for her brother's then she return to the [facility] and had to take care of her mom and stay with her. Patient reports that in the past few weeks she has been without her PPI. Patient no longer is taking Reglan. Patient reports epigastric pain, nausea and vomiting. Patient also reports abdominal bloating. Patient states that she eats very little and feels like the food comes right up. Bitter sour like taste in her mouth. Patient feels very gassy and bloated no matter what she eats. She feels like her stomach swells up no matter what she eats or drinks almost right away. Patient reports postprandial bowel movements. Patient reports her stools are soft and frequent. Occasional mucus in her stools an blood. Patient denies straining when having a bowel movement. [facility] Medical History (Updated 02/16/25 @ 19:56 by Gunjan Martin [facility]) GERD (gastroesophageal reflux disease) Angina at rest Helicobacter pylori (H. pylori) Screen for colon cancer Insomnia DUKE (generalized anxiety disorder) Major depressive disorder, recurrent episode, moderate with mood-congruent psychotic features Right shoulder pain Class 1 obesity with body mass index (BMI) of 33.0 to 33.9 in adult Ophthalmoplegic migraine Moderate asthma Dyslipidemia Surgical History History of esophagogastroduodenoscopy (EGD) History of ear surgery History of tubal ligation History of appendectomy Family History Mother Cancer Father Cancer Substance use disorder Other Right shoulder pain Social History Housing: Apartment Alcohol intake: never Comment: baseline Patient Tobacco Use Status: Never used Tobacco e-Cigarette/Vaping Use: Never Used Second Hand Smoke Exposure: No service: No Current occupational status: unemployed Cognitive needs: Yes Hearing needs: No Vision needs: No Review of Systems Const Denies weight gain and Denies weight loss ENT Reports no additional complaints, Denies dysphagia and Denies odynophagia Card Reports no additional complaints Resp Reports no additional complaints GI Reports abdominal pain (epigastric), Denies belching, Denies melena, Reports bloating, Denies change in bowel habits, Reports constipation, Denies dysphagia, Denies excessive flatus, Reports dyspepsia, Reports heartburn, Denies diarrhea, Reports loose stools, Reports nausea, Denies odynophagia and Reports vomiting Reports no additional complaints Musc Reports no additional complaints Neuro Reports no additional complaints Psych Reports no additional complaints Endo Reports no additional complaints Physical Exam Vital Signs: Last Vital Signs Pulse 58 02/16/25 10:45 BP 112/62 02/16/25 10:45 BMI result Body Mass Index 34.5 Const General: healthy appearing and no acute distress Nutritional Appearance: obese Orientation/consciousness: patient oriented x3 Resp Effort & Inspection: normal respiratory effort, able to speak in complete sentences, no tracheal deviation and symmetric chest movement Auscultation: clear to auscultation bilaterally Cardio Rate: regular rate GI Inspection: Yes normal to inspection, No distended and Yes obesity Palpation (GI): Soft to palpation, not firm, nontender and No hepatosplenomegaly present Auscultation: normal bowel sounds General: Yes no CVA tenderness Back/Spine/Pelvis Back: no CVA tenderness Skin General skin exam: elasticity normal, turgor normal and dry skin Neuro General: patient oriented x3 Psych Appearance: grossly normal Mental Status: mental status grossly normal Assessment & Plan Assessment & Plan (1) Nausea: Code(s): R11.0 - Nausea Category: Medical (2) Helicobacter pylori (H. pylori): Code(s): A04.8 - Other specified bacterial intestinal infections Category: Medical (3) GERD (gastroesophageal reflux disease): Code(s): K21.9 - Gastro-esophageal reflux disease without esophagitis Category: Medical Qualifiers: Esophagitis presence: esophagitis presence not specified Qualified Code(s): K21.9 - Gastro-esophageal reflux disease without esophagitis (4) Nausea & vomiting: Code(s): R11.2 - Nausea with vomiting, unspecified Qualifiers: Vomiting type: unspecified Qualified Code(s): R11.2 - Nausea with vomiting, unspecified (5) Postprandial abdominal bloating: Code(s): R14.0 - Abdominal distension (gaseous) Plan We will retest patient for H pylori. Will start her on rabeprazole. Message sent to RN to initiate PA. avoid dietary triggers and late night snacking. Staying upright for minimum 3 hours after meals discussed with patient. Patient will return in 5 weeks, sooner on as needed basis. She is agreeable to this plan and verbalizes understanding of instructions. She was given the opportunity to ask questions and all questions answered. Thank you for allowing me to participate in her care Orders: Orders H Pylori Breath Test Today K21.9 - Gastro-esophageal reflux disease without esophagitis Medications: Refilled rabeprazole 20 mg PO BID 180 tabs 0RF Discontinued pantoprazole Discontinued Reason: Doctor's Order 40 mg PO DAILY 90 days 90 tabs 1RF Coding Level of Care Code Est Pt Level 4 (67744) Diagnoses Nausea R11.0 Helicobacter pylori (H. pylori) A04.8 Gastroesophageal reflux disease, unspecified whether esophagitis present K21.9 Esophagitis presence: esophagitis presence not specified Nausea and vomiting, unspecified vomiting type R11.2 Vomiting type: unspecified Postprandial abdominal bloating R14.0 Time Spent (min) 40 Comment 25 minutes spent with patient and additional 15 minutes spent reviewing her records
[2025-02-16 10:45] VITALS: BP 112/62; PULSE 58; BMI 34.5
--- OUTSIDE RECORDS SUMMARY | 2025-02-16 11:14 | XMS_ITS | Encounter Summary ---
Author Organization [facility] Address [address] [facility] [address] [address] Care Team Providers Care Safety Director Name Role Phone Unavailable Primary Care Provider Unavailabl e Reason for Visit * Reason Onset Date Comments Med Refill medication 03/05/2024 Encounter Details Date Type Department Care Team ([facility] st Contact Info) Description 03/05/2024 Refill [facility] [address] [place] [address] Simone Muniz DMD [address] [place] [address] Social History Tobacco Use Types Packs/Day Years [...]
== END 2025-02-16 11:46 | disposition home or self-care (01) ==
LOC: HO.HGI 10:38
PROVIDERS: PCP Internal Medicine; Visit Provider Nurse Practitioner Family
DX: R11.0 Nausea (principal); A04.8 Other specified bacterial intestinal infections; K21.9 Gastro-esophageal reflux disease without esophagitis; R11.2 Nausea with vomiting, unspecified; R14.0 Abdominal distension (gaseous)
CPT/HCPCS: 99214

== ENCOUNTER 2025-02-16 10:37 | Outpatient (REF) | payer OTHER, SELFPAY ==
--- OUTSIDE RECORDS SUMMARY | 2024-05-26 07:37 | XMS_ITS | Continuity of Care Document ---
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 Name Role Phone Richard MEJIA, RVT, TIFFANIE, Mario Unavailable U navailable Allergies, Adverse Reactions, Alerts Substance Reaction Status Criticality PENICILLIN Active No Information Procedures Procedure Date Duplex Scan-extrem Veins; Uni/ CT & [place] O ct Varithena, Single Truncal Vein - CT & [place] Duplex Scan-extrem Veins; Uni/ CT & [place] O ct Varithena, Single Truncal Vein - CT & [place] Office/Outpt E&M Established 15 Mins- CT & [place] Duplex Scan-extrem Veins; Comp- CT & [place] Duplex Scan-extrem Veins; Uni/ CT & [place] A Inj Scleros Solut; Mx Veins 1- CT & [place] A Ultrason Guidan Needle Bx-rad- CT & [place] A Duplex Scan-extrem Veins; Uni/ CT & [place] A Inj Scleros Solut; Mx Veins 1- CT & [place] J Ultrason Guidan Needle Bx-rad- CT & [place] J Office/Outpt E&M Established 15 Mins- CT & [place] Duplex Scan-extrem Veins; Comp- CT & [place] Duplex Scan-extrem Veins; Uni/ CT & [place] J Endovenous Laser, 1st Vein- CT & [place] Duplex Scan-extrem Veins; Uni/ CT & [place] M Surgical Stockings Duomed Thigh High 20- 30 & 30-40 Endovenous Laser, 1st Vein- CT & [place] Offic/outpt E&m Estab 5 Min Trial - Tele medicine Offic Cons New/estab Mod-hi 60 Duplex Scan-extrem Veins; Comp Advance Directives Directive Yes / No Effective Date File Name No Information Encounters Encounter Description Practice Location Reason(s) For Visit Diagnoses Date Provider Providers Copied on Encounter [facility] MD [place], [address] [place] [address] Dr Putnam [facility] [address], [id number], [place] tel:[phone] [facility] No Information 4 Richard MEJIA RVT, RPVI Robert. [address] [place] [address], [place], [place], [id number], [place]. tel:[phone] [facility], [address] [place] [address] Dr Putnam [address]Suite Thai [place], [id number], [place] tel:[phone] [facility] Chronic venous hypertension (idiopathic) with other complication s of left lower extremityEnc ounter for follow-up examination after completed treatment for conditions other than malignant neoplasm 4 Richard MEJIA RVT, RPVI Robert. [address] [place] [address], [place], [place], [id number], [place]. tel:[phone] Referring Provider: Tracy Butler MD, [address] [place] [address] [address], [address] Robert D/B/A: [facility], [place], [address]. tel:[phone] [facility] MD [place], [address] [place] [address] Dr Putnam [address]Suite Thai [place], [id number], [place] tel:[phone] [facility]ose [facility] of left lower extremity with other complication s May-0 4 Richard MEJIA RVT, TIFFANIE Martin. [address], [address], [place], [place], [id number], [place]. tel:[phone] Referring Provider: Tracy Butler MD, [address] [facility] , [address] Robert D/B/A: [place], [address]. tel:[phone] [facility], [address] [place] [address] [address] Thai [place], [id number], [place] tel:[phone] [facility] [place] [facility] [place] Encounter for follow-up examination after completed treatment for conditions other than malignant neoplasmVari cose veins of right lower extremity with pain Oct-0 - 4 Richard MEJIA RVT, TIFFANIE Martin. [address] [facility], [address], [facility] [place], [id number], [place]. tel:[phone] Referring Provider: Tracy Butler MD, [address] [facility] [address], [address] [place] [address] D/B/A: [place], [address]. 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 [address] [facility] [address], [address], [place], [place], [id number], [place]. tel:[phone] Referring Provider: Tracy Butler MD, [address] [facility] [address], [address] Robert D/B/A: [place], [address]. tel:[phone] Office/Outpt E&M Established 15 Mins- CT & [place] [facility], [address] [place] [address] [address] Thai [place], [id number], [place] tel:[phone] [facility] [place] [facility] [place] Chronic venous hypertension (idiopathic) without complication s of bilateral lower extremityLym phedema, not elsewhere classifiedPr uritus, unspecifiedH ereditary lymphedema Apr- 4 Richard MEJIA RVT, TIFFANIE Martin. [address] [facility], [address], [facility] [place], [id number], [place]. tel:[phone] Referring Provider: Tracy Butler MD, [address] , [address] Robert D/B/A: [place], [address]. tel:[phone] [facility], [address] [place] [address] [address] Thai [place], [id number], [place] tel:[phone] [facility] Encounter for follow-up examination after completed treatment for conditions other than malignant neChronic venous hypertension (idiopathic) with other complication s of bilateral lower extremity 4 Richard MEJIA RVT, TIFFANIE Martin. [address] [facility], [address], [facility] [place], [id number], [place]. tel:[phone] Referring Provider: Tracy Butler MD, [address] [facility] , [address] [place] [address] D/B/A: [place], [address]. tel:[phone] [facility], [address] [place] [address] [address] Thai [place], [id number], [place] tel:[phone] [facility] Encounter for follow-up examination after completed treatment for conditions other than malignant neoplasmVari cose veins of left lower extremity with pain 4 Richard MEJIA RVT, TIFFANIE Martin. [address] [facility], [address], [facility] [place], [id number], [place]. tel:[phone] Referring Provider: Tracy Butler MD, [address] [facility] , [address] D/B/A: [place], [address]. tel:[phone] [facility], [address] [place] [address] [address] [address]Thai [place], [id number], [place] tel:[phone] [facility] [place] [facility] [place] Varicose veins of left lower extremity with other complication s 4 Isabela Briggsina. [address] [place] [address] [address], [facility] [place], [id number], [place]. tel:[phone] Referring Provider: Tracy Butler MD, [address], [address] Robert D/B/A: [place], [address]. tel:[phone] [facility], [address] [place] [address] [address]Thai [place], [id number], [place] tel:[phone] [facility] [place] [facility] [place] Encounter for follow-up examination after completed treatment for conditions other than malignant neVaricose veins of right lower extremity with pain 4 Richard MEJIA, RVT, RPVI Mario. [address] [place] [address], [facility] [place], [id number], [place]. tel:[phone] Referring Provider: Tracy Butler MD, [address] [facility] [address], [address] Robert D/B/A: [place], [address]. 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 [address] [place] [address] [address], [facility] [place] [place], [id number], [place]. tel:[phone] Referring Provider: Tracy Butler MD, [address] [facility] [address], [address] Robert D/B/A: [place], [address]. tel:[phone] Office/Outpt E&M Established 15 Mins- CT & [place] [facility], [address] [place] [address] [address]Thai [place], [id number], [place] tel:[phone] [facility] - [facility] Varicose veins of bilateral lower extremities with other complication sLymphedema, not elsewhere classifiedPr uritus, unspecifiedH ereditary lymphedema 4 Richard MEJIA RVT, TIFFANIE Martin. [address] [facility], [address], [facility], [place], [id number], [place]. tel:[phone] Referring Provider: Tracy Butler MD, [address] [facility] , [address] D/B/A: [place], [address]. tel:[phone] [facility], [address] [place] [address] [address] Thai [place], [id number], [place] tel:[phone] CVR - [place] [facility] Encounter for follow-up examination after completed treatment for conditions other than malignant neVaricose veins of bilateral lower extremities with pain 4 Richard MEJIA RVT, TIFFANIE Martin. [address] [facility], [address], [facility], [place], [id number], [place]. tel:[phone] Referring Provider: Tracy Butler MD, [address] [facility] , [address] Robert D/B/A: [place], [address]. [phone] [facility], [address] [place] [address] [address]Suite hTai [place], [id number], [place] tel:[phone] CV[facility] - [facility] Encounter for follow-up examination after completed treatment for conditions other than malignant nePain in left leg 4 Richard MEJIA RVT, TIFFANIE Martin. [address] [facility], [address], [facility] [place], [id number], [place]. tel:[phone] Referring Provider: Tracy Butler MD, [address] [facility] , [address] D/B/A: [place], [address]. tel:[phone] [facility], [address] [place] [address] [address] [address]Thai [place], [id number], [place] tel:[phone] [facility] [place] Chronic venous hypertension (idiopathic) with inflammation of left lower extremity 4 Richard MEJIA RVT, TIFFANIE Martin. [address] [facility], [address], [facility] [place], [id number], [place]. tel:[phone] Referring Provider: Tracy Butler MD, [address] [facility] [address], [address] West D/B/[place]: [place], [address]. tel:[phone] [facility], [address] [place] [address] [address] Thai [place], [id number], [place] tel:[phone] [facility] - [place] [facility] [place] Encounter for follow-up examination after completed treatment for conditions other than malignant nePain in right lower leg 4 Richard MEJIA RVT, TIFFANIE Martin. [address] [place] [address], Suite [facility], [facility] [place], [id number], [place]. tel:[phone] Referring Provider: Tracy Butler MD, [address] [facility] [address], [address] [place] [address] D/B/[place]: [place], [address]. tel:[phone] [facility], [address] [place] [address] [address] Thai [place], [id number], [place] tel:[phone] [facility] [place] Chronic venous hypertension (idiopathic) without complication s of bilateral lower extremity 4 Richard MEJIA RVT, TIFFANIE Martin. [address] [place] [address], [address], [facility] [place], [id number], [place]. tel:[phone] [facility], [address] [place] [address] [address] Thai [place], [id number], [place] tel:[phone] [facility] [place] Varicose veins of right lower extremity with other complication s 4 Richard MEJIA RVT, TIFFANIE Martin. [address] [place] [address], [address], [facility] [place], [id number], [place]. tel:[phone] Referring Provider: Tracy Butler MD, [address], [address] [place] [address] D/B/A: [place], [address]. tel:[phone] [facility], [address] [place] [address] Dr Putnam [address], [place], [id number], [place] tel:[phone] [facility] No Information 4 Richard MEJIA, RVT, TIFFANIE Martin. [address] [place] [address], [facility] [place], [id number], [place]. tel:[phone] Offic/outpt E&m Estab 5 Min Trial - Telemedicine [facility], [address] [place] [address] [address], [place], [id number], [place] tel:[phone] [facility] Localized edemaCramp and spasmRestles s legs syndromeVeno us insufficienc y (chronic) (peripheral) Lymphedema, not elsewhere classifiedPr uritus, unspecifiedH ereditary lymphedema 4 Jonas Weeks. [address] [place] [address], [facility] [place], [id number], [place]. tel:[phone] Referring Provider: Tracy Butler MD, [address] [facility] [address], [address] [place] [address] D/B/A: [place], [address]. tel:[phone] Offic Cons New/estab Mod-hi 60 [facility], [address] [place] [address] [address], [place], [id number], [place] tel:[phone] [facility] hypertension (idiopathic) with other complication s of bilateral lower extremityLoc alized edemaPain in right legPain in left legRestless legs syndromeVeno us insufficienc y (chronic) (peripheral) Lymphedema, not elsewhere classifiedPr uritus, unspecifiedH ereditary lymphedemaCr amp and spasm 3 Arun MEJIA FACS RVT RPDANY Teresa. [address] [facility], [address], [place], [address], [place]. tel:[phone] Referring Provider: Tracy Butler MD, [address] [facility] [address], [address] [place] [address] D/B/[place]: [place], [address]. tel:[phone] [facility], [address] [facility] [address], [place], [id number], tel:[phone] [facility] [place] Chronic venous hypertension (idiopathic) with other complication s of bilateral lower extremity 3 Arun MEJIA FACS [facility] TIFFANIE Teresa. [address] [facility], [place] [address], [place], [address], [place]. tel:[phone] Referring Provider: Tracy Butler MD, [address] [facility] [address], [address] [place] [address] D/B/[place]: [place], [address]. tel:[phone] Family History Family Member Type Diagnosis Age At Onset No Information Payers Payer name Insurance type Covered alliance party ID Authoriza timiguel(s) [facility] [id number] Social History Type Description Quantity Date Captured Comments Sex Female Smoking Status No Information Chief Complaint And Reason For Visit No Information Reason For Referral Reason For Referral No Information Plan Of Treatment Date Type Action Status Goal Diet education completed Goal Diet education completed Goal Diet education completed Referral Ordered: Weight management: Referral to physician timeframe: 3 Months (related to Body mass index (BMI) 32.0-32.9, adult) ordered Referral Ordered: Weight management: Referral to physician timeframe: 3 Months (related to Body mass index (BMI) 32.0-32.9, adult) ordered Referral Ordered: Weight management: Referral to physician timeframe: 3 Months (related to Body mass index (BMI) 32.0-32.9, adult) ordered History Of Present Illness Encounter Date Complaint History Of Prese nt Illness No Information Functional Status Date Functional Assessmen t No Information Instructions Date Instruction Additional Infor ramirez Diet education Related to Body mass index (BMI) 32.0-32.9, adult Giving Encouragement to exercise Related to Body mass index (BMI) 32.0-32.9, adult Lifestyle education Related to B rosangela mass index (BMI) 32.0-32.9, adult Patient education booklet given Related to Chronic venous hypertension (idiopathic) without complications of bilateral lower extremity Diet education Related to Body mass index (BMI) 32.0-32.9, adult Giving Encouragement to exercise Related to Body mass index (BMI) 32.0-32.9, adult Lifestyle education Related to B rosangela mass index (BMI) 32.0-32.9, adult Patient education booklet given Related to Varicose veins of bilateral lower extremities with other complications Patient education booklet given Related to Localized edema Lifestyle education Related to B rosangela mass index (BMI) 32.0-32.9, adult Patient education booklet given Related to Chronic venous hypertension (idiopathic) with other complications of bilateral lower extremity Diet education Related to Body mass index (BMI) 32.0-32.9, adult Giving Encouragement to exercise Related to Body mass index (BMI) 32.0-32.9, adult Assessments Type Assessment Date No Information Patient Care Teams Name Effective Dates (start - stop) Status Members No Information
== END 2025-02-16 10:38 | disposition home or self-care (01) ==
LOC: HO.LNP 10:37
PROVIDERS: PCP Internal Medicine; Visit Provider Nurse Practitioner Family
DX: K21.9 Gastro-esophageal reflux disease without esophagitis (principal); R11.0 Nausea; A04.8 Other specified bacterial intestinal infections; R14.0 Abdominal distension (gaseous); R11.2 Nausea with vomiting, unspecified
CPT/HCPCS: 83013; 99212

== ENCOUNTER 2025-03-21 13:50 | Outpatient (AMB) | payer OTHER, SELFPAY ==
[2025-03-21 13:55] VITALS: BMI 34.1
--- NOTE | 2025-03-21 13:55 | A.OFFVIS_ITS ---
Vital Signs 03/21/25 13:55 Height 5 ft 6 in Weight 211 lb 3.245 oz BMI 34.1 Intake Visit Reasons: Abd pain Intake Note: Hilda presents in office today in follow up of abdominal pain. CC: Patient c/o vomiting for 2 weeks, epigastric burning and pain. She also c/o not been able to sleep well d/t the pain, and abdominal bloating. Per patient her stools have like a clear mucous. Patient states that she is very depressed and desperate do to not knowing what's going with her. She could not say what nausea medication she is taking right now. Neurocritical Care Physician Required: Yes Neurocritical Care Physician Language: Syriac Allergies Influenza Virus Vaccines Allergy (Severe, Verified 03/21/25 13:58) trouble breathing strawberry Allergy (Severe, Verified 03/21/25 13:58) Rash tree nut Allergy (Severe, Verified 03/21/25 13:58) Shortness of Breath ergocalciferol (vitamin D2) (From Vitamin D2) Allergy (Mild, Verified 03/21/25 13:58) Rash penicillin V Allergy (Mild, Verified 03/21/25 13:58) swelling lobster Allergy (Unknown, Verified 03/21/25 13:59) Itching shrimp Allergy (Unknown, Verified 03/21/25 13:59) Itching meloxicam Adverse Reaction (Mild, Verified 03/21/25 13:58) Palpitations HPI HPI Abd pain: Details: LAST VISIT: Nausea Helicobacter pylori (H. pylori) GERD (gastroesophageal reflux disease) Nausea & vomiting Postprandial abdominal bloating Plan We will retest patient for H pylori. Will start her on rabeprazole. Message sent to RN to initiate PA. avoid dietary triggers and late night snacking. Staying upright for minimum 3 hours after meals discussed with patient. Patient will return in 5 weeks, sooner on as needed basis. She is agreeable to this plan and verbalizes understanding of instructions. She was given the opportunity to ask questions and all questions answered. ? Thank you for allowing me to participate in her care Orders H Pylori Breath Test Today K21.9 Refilled rabeprazole 20 mg PO BID 180 tabs 0RF Discontinued pantoprazole Discontinued Reason: Doctor's Order 40 mg PO DAILY 90 days 90 tabs 1RF TODAY'S VISIT: Patient is here today for follow-up. Patient tested positive for H pylori. Unable to your H pylori for this patient and she is having epigastric pain and nausea. Patient reports that no matter what she eats or drinks she will be feeling nauseous. Patient sometimes is unable to keep even water down. Feels like everything is coming back up. Patient reports that she never received rabeprazole or Reglan. Patient states that she does not have any medications at home to help her with her symptoms. Patient reports that she is unable to eat anything. Denies any diarrhea, however she reports mucus and loose stools. She is not having normal bowel movements. All the patient states that she is not constipated. Patient denies melena, hematochezia, unintentional weight loss or ribbon like stools. Patient reports dyspepsia with dysphagia without odynophagia. [facility] Medical History (Updated 02/16/25 @ 19:56 by Gunjan Martin [facility]) GERD (gastroesophageal reflux disease) Angina at rest Helicobacter pylori (H. pylori) Screen for colon cancer Insomnia DUKE (generalized anxiety disorder) Major depressive disorder, recurrent episode, moderate with mood-congruent psychotic features Right shoulder pain Class 1 obesity with body mass index (BMI) of 33.0 to 33.9 in adult Ophthalmoplegic migraine Moderate asthma Dyslipidemia Surgical History History of esophagogastroduodenoscopy (EGD) History of ear surgery History of tubal ligation History of appendectomy Family History Mother Cancer Father Cancer Substance use disorder Other Right shoulder pain Social History Housing: Apartment Alcohol intake: never Comment: baseline Patient Tobacco Use Status: Never used Tobacco e-Cigarette/Vaping Use: Never Used Second Hand Smoke Exposure: No service: No Current occupational status: unemployed Cognitive needs: Yes Hearing needs: No Vision needs: No Physical Exam Vital Signs: BMI result Body Mass Index 34.1 Assessment & Plan Assessment & Plan (1) Nausea: Code(s): R11.0 - Nausea Category: Medical (2) Helicobacter pylori (H. pylori): Code(s): A04.8 - Other specified bacterial intestinal infections Category: Medical (3) GERD (gastroesophageal reflux disease): Code(s): K21.9 - Gastro-esophageal reflux disease without esophagitis Category: Medical Qualifiers: Esophagitis presence: esophagitis presence not specified Qualified Code(s): K21.9 - Gastro-esophageal reflux disease without esophagitis (4) Nausea and vomiting: Code(s): R11.2 - Nausea with vomiting, unspecified Qualifiers: Vomiting type: unspecified Qualified Code(s): R11.2 - Nausea with vomiting, unspecified (5) Postprandial abdominal bloating: Code(s): R14.0 - Abdominal distension (gaseous) Plan Will send stool study. RN Will call pharmacy and see why medication was not dispensed to patient. Patient was encouraged to take rabeprazole as ordered. Patient will return in 2-3 weeks and we will send her for upper endoscopy and colonoscopy. Patient will start taking Dulcolax daily to help her empty her bowels completely. Patient is agreeable to this plan and verbalizes understanding of instructions. She was given the opportunity to ask questions and all questions answered. Orders: Orders GI Panel Today R19.7 - Diarrhea, unspecified Leukocytes Stool Qualitative Today R19.7 - Diarrhea, unspecified Ova and Parasite Today R19.7 - Diarrhea, unspecified Medications: New bisacodyl (Dulcolax (bisacodyl)) 10 mg (2 x 5 mg) PO BEDTIME 60 tabs 4RF Refilled rabeprazole 20 mg PO BID 180 tabs 0RF metoclopramide HCl (Reglan) olesya un comprimido 30 minutos antes de las comidas 5 mg PO QIDACHS 120 tabs 3RF K31.84 - Gastroparesis Coding Level of Care Code Est Pt Level 4 (29198) Complex EM visit Add On G2211 Diagnoses Nausea R11.0 Helicobacter pylori (H. pylori) A04.8 Gastroesophageal reflux disease, unspecified whether esophagitis present K21.9 Esophagitis presence: esophagitis presence not specified Nausea and vomiting, unspecified vomiting type R11.2 Vomiting type: unspecified Postprandial abdominal bloating R14.0 Time Spent (min) 40 Comment 25 minutes spent with patient and additional 15 minutes spent reviewing her rec ords
--- OUTSIDE RECORDS SUMMARY | 2025-03-21 14:12 | XMS_ITS | Clinical Summary ---
Author Organization [facility] Address [address] [facility] [facility] [address] [place] [address] Phone Care Team Providers Care Product Manager Financial Services Name Role Phone Wil Lopez MD Primary Care Provider [phone] Allergies Active Allergy Reactions Criticality Noted Date Comments Cephalosporins Unknown 07/20/2011 Multivitamin Hives,Swelling High 03/21/2012 Penicillins Unknown 07/20/2011 Medications fluticasone propionate (FLONASE ALLERGY RELIEF) 50 mcg/actuation nasal spray 2 sprays in each nostril 6 Active tiotropium (SPIRIVA WITH HANDIHALER) 18 mcg inhalation capsule as directed 4 Active fluticasone propion-salmete rol (ADVAIR DISKUS) 250-50 mcg/dose DISKUS as directed Ac tive albuterol (PROAIR HFA) 90 mcg/actuation inhaler as directed 4 Active Medication-Free Text ALBUTEROL SULFATE NEBU (ALBUTEROL SULFATE NEBU) as directed Active docusate sodium (DULCOLAX STOOL SOFTENER, DSS,) 100 MG capsule take one cap po bid for constipation 4 Active polyethylene glycol 3350 (MIRALAX ORAL) 17 grams po bid 4 Active diazePAM (VALIUM) 5 MG tablet one tab by mouth bid 4 Active QUEtiapine (SEROQUEL) 300 MG tablet 2 tabs po qhs 4 Active traZODone (DESYREL) 100 MG tablet take 1-3 tabs po qhs 4 Active FLUoxetine (PROZAC) 20 MG capsule 3 tabs po daily 4 Active senna (SENOKOT) 8.6 mg tablet 2-3 tablets by mouth as necessary 6 Active atorvastatin (LIPITOR) 80 MG tablet 1 tablet by mouth daily 6 Active aspirin (ADULT LOW DOSE ASPIRIN) 81 MG EC tablet 1 tablet by mouth daily Active fentaNYL (DURAGESIC) 25 mcg/hr Apply 1 patch topically evry 3 days Active oxyCODONE-aceta minophen (PERCOCET) 5-325 mg per tablet 1 tablet by mouth every 6 hours as needed 6 Active levoFLOXacin (LEVAQUIN) 250 MG tablet 1 tablet by mouth two times daily for 14 days 8 Active prazosin (MINIPRESS) 2 MG capsule 1 tablet by mouth daily 6 Active omeprazole (PRILOSEC) 20 MG capsule one capsule two times daily for 14 days Active Active Problems Problem Noted Date Diagnosed Date Asthma 03/21/2012 Overview (09/29/2014): Asthma Anxiety 03/21/2012 Overview (09/29/2014): Anxiety Depressive disorder 03/21/2012 Overview (09/29/2014): Depression Nausea and vomiting 03/21/2012 Overview (09/29/2014): Nausea and vomiting Social History Tobacco Use Types Packs/Day Years Used Date Smoking Tobacco: Every Day Comments:Smoking History Pac ks/day: <=0.5 Education Answer Date Recorded Are you interested in more education? Not on yoli e 12/12/2022 Are you concerned about learning? Not on file 12/12/2022 No 12/12/2022 No 12/12/2022 Digital Access Answer Date Recorded No 01/03/2023 No 01/03/2023 No 01/03/2023 Reliable internet access at home? Not on file 01/03/2023 Device with a working camera? Not on file Comments Unknown Sex and Gender Information Value Date Recorded Sex Assigned at Not on file Legal Sex Female 5:53 PM EST Gender Identity Not on file Sexual Orientation Not on file Last Filed Vital Signs Vital Sign Reading Time Taken Comments Blood Pressure 110/68 01/05/2018 1:15 PM EDT Pulse 73 01/05/2018 1:15 PM EDT Temperature - - Respiratory Rate - - Oxygen Saturation - - Inhaled Oxygen Concentration - - Weight 102.1 kg (225 lb) 01/05/2018 1:15 PM EDT Height 162.6 cm (5' 4 ) 01/05/2018 1:15 PM EDT Body Mass Index 38.62 01/05/2018 1:15 PM EDT Plan of Treatment Health Maintenance Due Date Last Done Comments LIPID PANEL 1961 DEPRESSION SCREENING 1973 SMOKING Hx and SMOKELESS TOBACCO SCREENING 1974 HEPATITIS C SCREENING 1979 HIV ONE-TIME SCREENING (18-65 YEARS) 1979 PNEUMOCOCCAL VACCINES (50+ years) (1 of 2 - PCV) 1980 MAMMOGRAM 2001 COLOGUARD 2006 COLONOSCOPY 2006 COLORECTAL CANCER SCREENING 2006 FIT TEST 2006 FOBT 2006 SIGMOIDOSCOPY 2006 VIRTUAL COLONOSCOPY 2006 PAP SMEAR 04/22/2017 04/22/2014 ZOSTER VACCINES (2 of 2) 11/07/2019 09/12/2019 RSV VACCINE (1 - Risk 60-74 years 1-dose series) 2021 COVID-19 VACCINE (3 - season) 2024 04/23/2021, 02/08/2021 Adult Td,Tdap Booster 04/13/2033 04/13/2023 , 08/25/2019, 11/24/2007, Additional history exists HEPATITIS A VACCINES Aged Out 11/14/2021 No long er eligible based on patient's age to complete this topic HIB VACCINES Aged Out No longer eligi ble based on patient's age to complete this topic MENINGOCOCCAL VACCINES (ACWY) Aged Out No longer eligible based on patient's age to complete this topic MENINGOCOCCAL VACCINES (B) Aged Out N o longer eligible based on patient's age to complete this topic Medical Devices Not on file Insurance M[employer] MGBHP [employer]ILY [employer]CO MGBHP [employer] MGBHP [employer] MGBHP [employer] MGBHP [employer] MGP [employer] MGBHP [employer] FAMILY [employer] MGBHP [employer] Care Teams Product Manager Financial Services Relationship Specialty Start Date End Date Wil Lopez MD [address] [place] [phone] PCP - General Family Medicine 10/27/18 Additional Source Comments The information contained in this document represents components of the legal health record. It is not the complete legal health record.[facility]
--- OUTSIDE RECORDS SUMMARY | 2025-03-21 14:12 | XMS_ITS | Encounter Summary ---
Author Organization [facility] Address [address] [facility] [address] [address] Care Team Providers Care Surveillance Observer Name Role Phone Unavailable Primary Care Provider Unavailabl e Reason for Visit * Reason Onset Date Comments Med Refill medication 03/05/2024 Encounter Details Date Type Department Care Team ([facility] st Contact Info) Description 03/05/2024 Refill [facility] ADULT DENTAL [address] [place] [address] Simone Muniz DMD [address] [place] [address] Social History Tobacco Use Types Packs/Day Years [...]
== END 2025-03-21 14:34 | disposition home or self-care (01) ==
LOC: HO.HGI 13:50
PROVIDERS: PCP Internal Medicine; Visit Provider Nurse Practitioner Family
DX: R11.0 Nausea (principal); A04.8 Other specified bacterial intestinal infections; K21.9 Gastro-esophageal reflux disease without esophagitis; R11.2 Nausea with vomiting, unspecified; R14.0 Abdominal distension (gaseous)
CPT/HCPCS: 99214

== ENCOUNTER → 2025-03-21 13:50 | Outpatient (BNVA) | payer OTHER, SELFPAY | PROVIDERS: PCP Internal Medicine; Visit Provider Nurse Practitioner Family | DX: R10.13 Epigastric pain (principal); R11.0 Nausea; A04.8 Other specified bacterial intestinal infections; K21.9 Gastro-esophageal reflux disease without esophagitis; R11.2 Nausea with vomiting, unspecified; R14.0 Abdominal distension (gaseous); R19.7 Diarrhea, unspecified | CPT/HCPCS: 99212 ==

== ENCOUNTER 2025-05-17 12:33 | Outpatient (REF) | payer OTHER, SELFPAY ==
[2025-05-17 13:00] LABS: MANUAL DIFF FLAG NO
[2025-05-17 14:11] LABS: Hematocrit 41.0 % (37.0-47.0); Hemoglobin 13.3 g/dl (12.0-16.0); Imm Gran Abs Auto 0.05 X10*3/uL (0.00-0.03); Imm Gran Pct Auto 0.8 % (0.0-0.4); Lymphocytes Absolute Auto 1.8 X10*3/uL (1.2-4.9); Mean Corpuscular HGB Conc 32.4 g/dl (31.0-35.0); Mean Corpuscular Hemoglobin 28.9 pg (27.0-33.0); Mean Corpuscular Volume 88.9 fL (80.0-98.0); NRBC Abs Auto 0.000 X10*3/uL (0.0-0.012); NRBC Pct Auto 0.0 /100WBC (0.0-0.2); Platelet Count 327 X10*3/uL (160-400); Red Blood Count 4.61 X10*6/uL (4.20-5.50); White Blood Count 6.5 X10*3/uL (4.8-10.8)
[2025-05-17 14:46] LABS: Alanine Aminotransferase 20 U/L (0-31); Albumin Level 4.4 g/dL (3.5-5.0); Alkaline Phosphatase 74 U/L (39-117); Anion Gap 11 (12-20); Aspartate Amino Transferase 19 U/L (5-31); Blood Urea Nitrogen 16 mg/dL (9-16); Calcium 9.1 mg/dL (8.4-10.2); Carbon Dioxide 25 mmol/L (22-29); Chloride 109 mmol/L (96-108); Cholesterol 237 mg/dL (<200); Estimated Glomerular Filt Rate > 60; HDL Cholesterol 49 mg/dL (>40); Iron 87 mcg/dL (30-160); Percent Iron Saturation 38 % (15-50); Potassium 3.9 mmol/L (3.3-5.1); Sodium 141 mmol/L (135-145); Total Iron Binding Capacity 232 mcg/dL (228-428); Total Protein 7.6 g/dL (6.5-8.0); Triglycerides 109 mg/dL (<150); Unsaturated Iron Binding 145 ug/dL
[2025-05-17 15:02] LABS: Folate 4.4 ng/mL (> or = 4.0); Vitamin B12 261 pg/mL (200-900)
== END 2025-05-17 12:34 | disposition home or self-care (01) ==
LOC: HO.XRAY 12:33
PROVIDERS: PCP Internal Medicine; Visit Provider Internal Medicine
DX: E53.8 Deficiency of other specified B group vitamins (principal); E55.9 Vitamin D deficiency, unspecified; D64.9 Anemia, unspecified; E78.5 Hyperlipidemia, unspecified; R51.9 Headache, unspecified
CPT/HCPCS: 36415; 80053; 80061; 82306; 82607; 82746; 83540; 85025

== ENCOUNTER 2025-05-18 13:10 | Outpatient (REF) | payer OTHER, SELFPAY ==
--- OUTSIDE RECORDS SUMMARY | 2025-05-19 12:18 | XMS_ITS | Encounter Summary ---
Author Organization [facility] Address [address] [facility] [address] [place] [address] Phone Care Team Providers Care Education Program Manager Name Role Phone Zach Singh MD Unavailable [phone] Mahsa Tan MD Unavailable [phone] [address] [facility] Unavailable [phone] Wil Lopez MD Primary Care Provider [phone] Encounter Details Date Type Department Care Team (Late st Contact Info) Description 01/13/2019 Procedure Pass [facility] Phys[facility] - Endoscopy - [address] [phone] Social History Tobacco Use Types Packs/Day Years Used Date Smoking Tobacco: Every Day Comments:Smoking History Pac ks/day: <=0.5 Comments Unknown Sex and Gender Information Value Date Recorded Sex Assigned at Not on file Legal Sex Female 5:53 PM EST Gender Identity Not on file Sexual Orientation Not on file documented as of this encounter Plan of Treatment Not on file documented as of this encounter Visit Diagnoses Not on filedocumented in this encounter Care Teams Education Program Manager Relationship Specialty Start Date End Date Wil Lopez MD [address] [place] [phone] PCP - General Family Medicine 10/27/18 Zach Singh MD [address] [place] [address] [email or web address] Historical LMR Provider 09/08/18 Mahsa Tan MD [address] [place] [address] Historical LMR Provider 09/08/18 2 Love [place]ura CNP [address] [place] [phone] [email or web address] Historical LMR Provider 09/08/18 2 documented as of this encounter Additional Source Comments The information contained in this document represents components of the legal health record. It is not the complete legal health record.[facility]
--- OUTSIDE RECORDS SUMMARY | 2025-05-19 12:18 | XMS_ITS | Encounter Summary ---
Author Organization [facility] Address [address] [facility] [address] [place] [address] Phone Care Team Providers Care Sales Promotion Coordinator Name Role Phone Geraldo Azar MD Primary Care Provider Zach Singh MD Unavailable [phone] Mahsa Tan MD Unavailable [phone] [address] BUSINESS OBJECTS DEVELOPER Unavailable [phone] Bonnie Tovar MD Primary Care Provider [phone] Wil Lopez MD Primary Care Provider + [phone] Encounter Details Date Type Department Care Team (Late st Contact Info) Description 09/13/2018 Ancillary Orders [facility] - Lab - [place] [address] [place] [phone] Bonnie Tovar MD [address] [place] [address] Syncope, unspecified syncope type Social History Tobacco Use Types Packs/Day Years [...] on file documented as of this encounter Results * Event Monitor Non-Looping up to 30 Days - [facility] (10/27/2018 7:15 AM EDT) Anatomical Region Laterality Modality Heart Other Narrative 10/27/2018 7:15 AM EDT 2-week event monitor. Indication is syncope. No syncopal events reported. One episode of tired and fatigued occurring during normal sinus rhythm. No arrhythmias detected. Bonnie Tovar MD [facility] ORDERABLES F inal Result documented in this encounter Visit Diagnoses Diagnosis Syncope, unspecified syncope type Syncope, unspecified syncope type documented in this encounter Care Teams Sales Promotion Coordinator Relationship Specialty Start Date End Date Geraldo Azar MD [address] [phone] PCP - General 02/06/14 09/13/18 Bonnie Tovar MD [address] [place] [phone] PCP - General Family Medicine 09/14/18 10/26/18 Wil Lopez MD [address] [place] [phone] PCP - General Family Medicine 10/27/18 Zach Singh MD [address] [place] [phone] [email or web address] Historical LMR Provider 09/08/18 Mahsa Tan MD [address] [place] [phone] Historical LMR Provider 09/08/18 [address] BUSINESS OBJECTS DEVELOPER [address] [place] [phone] Historical LMR Provider 09/08/18 2 documented as of this encounter Additional Source Comments The information contained in this document represents components of the legal health record. It is not the complete legal health record.[facility]
--- OUTSIDE RECORDS SUMMARY | 2025-05-19 12:18 | XMS_ITS | Clinical Summary ---
Author Organization [facility] Address [address] [facility] [address] [place] [address] Phone Care Team Providers Care Manager Subway Name Role Phone Wil Lopez MD Primary Care Provider [phone] Allergies Active Allergy Reactions Criticality Noted Date [...] FOBT 2006 SIGMOIDOSCOPY 2006 VIRTUAL COLONOSCOPY 2006 RSV VACCINE (1 - Risk 50-74 years 1-dose series) 2011 PAP SMEAR 04/22/2017 04/22/2014 ZOSTER VACCINES (2 of 2) 11/07/2019 09/12/2019 INFLUENZA VACCINE (#1) 2025 0, 08/25/2019, 05/23/2015, Additional history exists COVID-19 VACCINE (3 - season) 2025 04/23/2021, 02/08/2021 Adult Td,Tdap Booster 04/13/2033 04/13/2023 [...] file Insurance [employer] MGBHP MY [employer] FAMILY ACO M[employer] MGBHP MY [employer] FAMILY [employer] [facility] [employer] CARE FAMILY ACO M[employer] Care Teams Manager Subway Relationship Specialty Start Date End Date Wil Lopez MD [address] [place] [phone] PCP - General Family Medicine 10/27/18 Additional Source Comments The information contained in this document represents components of the legal health record. It is not the complete legal health record.[facility]
[2025-05-19 13:54] LABS: E. coli EAEC Not Detected (Not Detect.); E. coli EPEC Not Detected (Not Detect.); E. coli ETEC Not Detected (Not Detect.); E. coli STEC Not Detected (Not Detect.); Shigella sp./EIEC Not Detected (Not Detect.)
[2025-05-19 14:45] LABS: Leukocytes Stool Qualitative NEGATIVE (NEGATIVE)
== END 2025-05-18 13:11 | disposition home or self-care (01) ==
LOC: HO.LNP 13:10
PROVIDERS: Visit Provider Nurse Practitioner Family
DX: R19.7 Diarrhea, unspecified (principal)
CPT/HCPCS: 87177; 87209; 87507; 89055

== ENCOUNTER 2025-06-12 11:01 | Outpatient (AMB) | payer OTHER, SELFPAY ==
[2025-06-12 11:04] VITALS: BP 122/68; PULSE 72; TEMP 36.2; O2SAT 97; BMI 34.5
--- NOTE | 2025-06-12 11:04 | MHC.PC.OV ---
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 Accompanied by: Self / Same As Patient Allergies Influenza Virus Vaccines Allergy (Severe, Verified 06/12/25 11:29) trouble breathing strawberry Allergy (Severe, Verified 06/12/25 11:29) Rash tree nut Allergy (Severe, Verified 06/12/25 11:29) Shortness of Breath ergocalciferol (vitamin D2) (From Vitamin D2) Allergy (Mild, Verified 06/12/25 11:29) Rash penicillin V Allergy (Mild, Verified 06/12/25 11:29) swelling lobster Allergy (Unknown, Verified 06/12/25 11:29) Itching shrimp Allergy (Unknown, Verified 06/12/25 11:29) Itching meloxicam Adverse Reaction (Mild, Verified 06/12/25 11:29) Palpitations Medication List - Last Reconciled 06/12/25 by Tracy Milton MD acetaminophen ER 1,300 mg (2 x 650 mg) PO Q8H PRN 90 days albuterol sulfate 2.5 mg (3 mL) inhalation Q6H 30 days albuterol sulfate 90 mcg/actuation 2 puffs inhalation Q6H PRN amitriptyline 50 mg PO BEDTIME bisacodyl (Dulcolax (bisacodyl)) 10 mg (2 x 5 mg) PO BEDTIME bupropion HCl XL 150 mg PO QAM celecoxib (Celebrex) 100 mg PO BID PRN 5 days clonazepam 0.5 mg PO BID PRN 30 days diclofenac sodium 1% (Arthritis Pain (diclofenac)) 4 grams topical QID fluoxetine 40 mg PO DAILY fluticasone propionate 44 mcg/actuation (Flovent HFA) 2 puffs inhalation BID 30 days loratadine (Allergy Relief (loratadine)) 10 mg PO DAILY 90 days metoclopramide HCl (Reglan) 5 mg PO QIDACHS nitroglycerin 0.3 mg sublingual Q5M PRN 30 days ondansetron 4 mg PO Q8H PRN prochlorperazine maleate 5 mg PO BID PRN 30 days rabeprazole 20 mg PO BID risperidone 2 mg PO BEDTIME temazepam 30 mg PO BEDTIME PRN tiotropium bromide 2.5 mcg/actuation (Spiriva Respimat) 2 puffs inhalation DAILY topiramate 50 mg PO DAILY 90 days trazodone 300 mg (3 x 100 mg) PO BEDTIME 90 days Tobacco use date assessed: 06/12/25 Fall risk assessment: 2 + Falls in past year Last assessed Fall Risk: 06/12/25 Dental Screening Dental Screen Date: 06/12/25 Did you have a dental visit in the last 12 months?: Yes Did you have a dental problem in the last 6 months where you did not have access to dental care?: No Was dental information given to patient?: Patient has dentist HPI HPI Comments History of Present Illness Details The patient is a 65-year-old female who presents for her physical exam. The patient reports a history of nausea and vomiting, stating that she vomits both pills and liquids. She has undergone multiple upper endoscopies in the past. The patient has a new complaint of left arm weakness, describing a loss of strength in the extremity. She states that another doctor advised her against pursuing physical therapy for this issue. She also has a chronic left knee problem resulting from a past accident, which causes her leg to tremble and feel unstable upon standing. The patient has a history of high cholesterol, but her 10-year risk of a heart attack or stroke is low at 3.1%, so she is not on medication for it. She follows a diet low in fat, avoiding beef, fat, egg yolks, mayonnaise, and butter. For mental health, the patient is followed by a psychiatrist, Dr. Doll, for depression and anxiety. Her medications include Reglan, ondansetron, prochlorperazine, rabeprazole, risperidone, and temazepam. She has known allergies to vitamin D, penicillin, lobsters, shrimp, and meloxicam. Her father had a history of cancer. [facility] Medical History GERD (gastroesophageal reflux disease) Angina at rest Helicobacter pylori (H. pylori) Screen for colon cancer Insomnia DUKE (generalized anxiety disorder) Major depressive disorder, recurrent episode, moderate with mood-congruent psychotic features Right shoulder pain Class 1 obesity with body mass index (BMI) of 33.0 to 33.9 in adult Ophthalmoplegic migraine Moderate asthma Dyslipidemia Surgical History History of esophagogastroduodenoscopy (EGD) History of ear surgery History of tubal ligation History of appendectomy Family History Mother Cancer Father Cancer Substance use disorder Other Right shoulder pain Social History Housing: Apartment Alcohol intake: never Comment: baseline Patient Tobacco Use Status: Never used Tobacco e-Cigarette/Vaping Use: Never Used Second Hand Smoke Exposure: No service: No Current occupational status: unemployed Cognitive needs: Yes Hearing needs: No Vision needs: No Questionnaire PHQ-9 Over the last 2 weeks, how often have you been bothered by any of the following problems? 1. Little interest or pleasure in doing things: not at all 2. Feeling down, depressed, or hopeless: several days 3. Trouble falling or staying asleep, or sleeping too much: not at all 4. Feeling tired or having little energy: not at all 5. Poor appetite or overeating: not at all 6. Feeling bad about yourself - or that you are a failure or have let yourself or your family down: not at all 7. Trouble concentrating on things, such as reading the newspaper or watching television: not at all 8. Moving or speaking so slowly that other people could have noticed. Or the opposite - being so fidgety or restless that you have been moving around a lot more than usual: not at all 9. Thoughts that you would be better off or of hurting yourself in some way: not at all Total score: 1 Depression Screening Interpretation: Negative Depression Screening Done: Yes 84544 - PHQ-9 Billing: Yes Source: Developed by Drs. Mario Tran, Chanell Rosas, Perfecto Alas and colleagues, with an educational donny from [employer]. Thrive Questionnaire Date Thrive assessed: 11/28/24 I am a: Patient What is your living situation today?: I have a steady place to live Within the past 12 months, did the food you bought not last and you didn't have the money to get more?: Never true Within the past 12 months, did you worry whether your food would run out before you got money to buy more?: Never true Do you have trouble paying for medicines?: No Do you have trouble getting transportation to medical appointments?: No Do you have trouble paying your heating and electricity bill?: No Do you have trouble taking care of your child, family member or friend?: No Do you have trouble with day-to-day activities such as bathing, preparing meals, shopping, managing finances, etc.?: No Are you currently unemployed and looking for a job?: No Are you interested in more education?: No Please select the resources that you would like help with: None Currently or been in a relationship where the following occur: No concerns reported THRIVE Score: 0 AUDIT C Alcohol Use Questionnaire (AUDIT-C) 1. How often do you have a drink containing alcohol?: Never 3. How often do you have six or more drinks on one occasion?: Never Total Score: 0 Score Reviewed/Action Taken: No DUKE-7 AMB Questionnaire DUKE-7 Date DUKE - 7 assessed: 11/28/24 Feeling nervous, anxious, or on edge: 1 = Several days Not being able to stop or control worryin = Not at all Worrying too much about different things: 0 = Not at all Trouble relaxin = Not at all Being so restless that it is hard to sit still: 0 = Not at all Becoming easily annoyed or irritable: 0 = Not at all Feeling afraid as if something awful might happen: 0 = Not at all Total DUKE-7 score (0-4 normal; 5-9 mild; 10-14 moderate; 15-21 severe): 1 Source: Developed by Drs. Mario Tran, Chanell Rosas, Perfecto Alas and colleagues, with an educational donny from [employer]. DUKE-7 Assessment Billing DUKE-7 Assessment Tool: DUKE-7 Assessment 58582 Review of Systems Const All systems reviewed & are unremarkable except as noted in HPI and below Card Denies chest pain at rest, Denies chest pain with activity, Denies edema, Denies irregular heart rhythm, Denies claudication, Denies dyspnea, Denies dyspnea on exertion, Denies orthopnea, Denies paroxysmal nocturnal dyspnea and Denies slow heart rate Resp Denies cough, Denies dyspnea and Denies dyspnea on exertion GI Denies abdominal pain, Denies change in bowel habits, Denies excessive flatus, Denies nausea and Denies vomiting Denies urinary incontinence, Denies urinary hesitancy and Denies urinary urgency Musc Denies abnormal gait, Denies atrophy, Denies deformity and Denies limited range of motion Skin/Breast Denies bleeding lesions, Denies changing lesions and Denies rash Neuro Denies abnormal gait and Denies lack of coordination Physical exam (Primary Care) Vital Signs: Last Vital Signs Temp 97.1 F 06/12/25 11:04 Pulse 72 06/12/25 11:04 BP 122/68 06/12/25 11:04 Pulse Ox 97 06/12/25 11:04 Oxygen Delivery Method Room Air 06/12/25 11:04 BMI result Body Mass Index 34.5 Tobacco/Smoking Status: Tobacco use Status Tobacco use date assessed 06/12/25 06/12/25 11:09 Patient Tobacco Use Status Never used Tobacco 06/12/25 11:09 Tobacco use type 11/28/24 10:39 e-Cigarette/Vaping Use Never Used 06/12/25 11:09 PHQ-9: PHQ-9 Score PHQ-9: Total score 1 06/12/25 11:09 Depression Screening Interpretation: Negative Thrive Assessment: Date of Thrive Assessment Date Thrive assessed 11/28/24 06/12/25 11:09 Currently or been in a relationship where the following occur: No concerns reported [facility] Head: Yes normal to inspection, Yes normocephalic and Yes atraumatic Ears: external ears normal Eyes General: appearance normal, both eyes and all related structures Eyelids: Yes eyelids normal Conjunctivae: conjunctivae normal Neck Neck: Yes normal visual inspection and Yes supple Resp Effort & Inspection: normal respiratory effort Auscultation: clear to auscultation bilaterally Cardio Jugular venous distension: no JVD Rate: regular rate Rhythm: regular rhythm Heart sounds: S1 normal heart sound present and S2 normal heart sound present GI Inspection: Yes normal to inspection Palpation (GI): Soft to palpation and nontender Auscultation: normal bowel sounds Skin General skin exam: no rashes or lesions noted Neuro General: no focal motor deficits Extrem General: Yes full ROM Psych Appearance: grossly normal Coding Level of Care Code Est Pt Prev Care 40-64y(61209) Diagnoses Physical exam Z00.00 Major depressive disorder, recurrent episode, moderate with mood-congruent psychotic features F33.1 Additional Codes PHQ-9 - 66614 - PHQ-9 Billing: Yes ([id number]) DUKE-7 Assessment Billing - DUKE-7 Assessment Tool: DUKE-7 Assessment [id number] ([id number]) Time Spent (min) 30 Assessment & Plan Assessment & Plan (1) Physical exam: Code(s): Z00.00 - Encounter for general adult medical examination without abnormal findings Category: Medical (2) Major depressive disorder, recurrent episode, moderate with mood-congruent psychotic features: Code(s): F33.1 - Major depressive disorder, recurrent, moderate Category: Medical Plan Deny year. Do mammogram yearly. Follow-up with psychiatry for depression. Do Cologuard instead of colonoscopy. Orders: Orders XR DEXA axial skeleton Today Z78.0 - Asymptomatic menopausal state Referrals Cologuard Test Z12.11 - Encounter for screening for malignant neoplasm of colon, Z12.12 - Encounter for screening for malignant neoplasm of rectum
== END 2025-06-12 11:45 | disposition home or self-care (01) ==
LOC: HO.HMCH 11:01
PROVIDERS: PCP Internal Medicine; Visit Provider Internal Medicine
DX: Z00.00 Encounter for general adult medical examination without abnormal findings (principal); F33.1 Major depressive disorder, recurrent, moderate

== ENCOUNTER → 2025-06-12 11:01 | Outpatient (BNVA) | payer OTHER, SELFPAY | PROVIDERS: PCP Internal Medicine; Visit Provider Internal Medicine | DX: Z00.00 Encounter for general adult medical examination without abnormal findings (principal); R11.2 Nausea with vomiting, unspecified; R53.1 Weakness; E78.00 Pure hypercholesterolemia, unspecified; F33.1 Major depressive disorder, recurrent, moderate; Z78.0 Asymptomatic menopausal state | CPT/HCPCS: 96127; 99396 ==